=== PATIENT | female | born 1980 | race Hispanic/Latino ===

== ENCOUNTER 2018-08-29 05:37 | Observation (INO) | payer OTHER ==
[2018-08-29 07:46] LABS: Absolute Lymphocytes (CBC) 2.1 K/uL (0.7-4.9); Absolute Monocytes 0.7 K/uL (0.1-1.3); Basophils % 0.2 % (0-1.3); Eosinophils % 0.6 % (0-4.4); Hematocrit 31.4 % (36.0-45.0); Lymphocytes % 17.8 % (15.3-44.8); MPV 7.4 fL (7.6-11.3); Monocytes % 5.7 % (3.3-12.3); RBC Red Blood Cell Count 3.49 M/uL (3.86-4.86)
[2018-08-29] MEDS ORDERED: TERBUTALINE SULF 1 MG/1ML SQ ONE ×2 (08:47→23:15)
[2018-08-29] MEDS ORDERED: Ringers Lactate 500 ML IV ONE (08:48)
--- NOTE | 2018-08-29 09:08 | RAD REPORT ---
EXAM DESCRIPTION: US - OB Complete - 08/29/2018 8:56 am CLINICAL HISTORY: Late third trimester gestation, vaginal bleeding COMPARISON: July 21, 2018 FINDINGS: Transabdominal and limited endovaginal sonography performed. A single cephalic presenting gestation is identified. The 4 chamber heart view has a normal appearanc e. Heart rate normal. The intracranial contents and spine are grossly normal. A left-sided sto mach bubble is seen with normal appearing bladder and kidneys. The 3 vessel cord, insertion site and anterior abdominal wall have normal appearance. No abnormalities are identifiable. measurements are as follows: BPD:8.30 Centimeters 33 weeks 3 days HC:29.82 Centimeters 33 weeks 0 days AC:29.53 Centimeters 33 weeks 4 days HL:5.92 Centimeters 34 weeks 2 days FL:6.63 Centimeters 34 weeks 1 day The estimated gestational age (EGA) is 33 weeks 5 days with an GALO of 10/12/2018. ratios are n ormal or within acceptable limits. The placenta is grade I, posterior in location. No abruption or ma rginal hematoma seen. On limited endovaginal sonography, the inferior margin of the placenta appears to be approximately 2 cm from a closed internal os. Cervical canal assessment was limited. The amniotic fluid volume is normal. ANGIE is normal at 16.58 cm. Maternal adnexa obscured. IMPRESSION: 1. Single, cephalic gestation with an EGA of 33 weeks 5 days and an GALO of the 9. Due date has lengthened since the July examination; however, late third trimester measurement s are the least accurate. 2. No abnormalities are identifiable. ratios are normal or within acceptable limits. 3. Grade I, posterior placenta with no rupture nor marginal hematoma seen. Inferior margin of the escobar centa appears to have migrated superiorly and no longer covers the closed internal os. Cervical asses sment was somewhat limited. If a vaginal delivery is contemplated, a repeat limited dedicated endovag inal cervical canal assessment could be performed. 4. Amniotic fluid volume is normal.
[2018-08-29] MEDS ORDERED: MEPERIDINE HCL 25 MG/0.5 ML IV ONE ×3 (09:25→23:15)
[2018-08-29 09:30] LABS: Urine Appearance CLOUDY; Urine Bilirubin NEGATIVE (NEG); Urine Blood TRACE (NEG); Urine Color YELLOW; Urine Glucose NEGATIVE (NEG); Urine Protein NEGATIVE (NEG); Urine Specific Gravity 1.015 (1.005-1.030); Urine Urobilinogen 0.2 mg/dL (0.2-1.0); Urine pH 6.5 (5.0-7.0)
[2018-08-29] MEDS ORDERED: MEPERIDINE HCL 25 MG/0.5 ML ONE (09:30)
--- NOTE | 2018-08-29 09:37 | P.PN ---
Date of Service: 08/29/18 Patient is a 38 y/o at 36 weeks and 1 day gestation who presents to labor and delivery with vaginal bleeding and pelvic pain/contractions. She states that around 4AM this morning she began to have vaginal bleeding. She states it was bright red. She states last intercourse was one week ago. She has not had any other changes. She has been obtaining care with Dr. Iniguez. Records reviewed. Patient has a h/o 2 prior sections. She has consented to a bilateral tubal ligation. She states she is not sure if she has had any problems with her placenta during the . She reports good movements. VS: ULTRASOUND REPORT: Name: [place] PENALOZA Acct Number: [id number] : 1980 Age: 38 Sex: F Unit Number: [id number] Ord Phys: Kranthi Wagner DO [facility]: Status: REG REF L&D Exam Date: 08/29/18 Report Status: Signed EXAM DESCRIPTION: US - OB Complete - 08/29/2018 8:56 am CLINICAL HISTORY: Late third trimester gestation, vaginal bleeding COMPARISON: July 21, 2018 FINDINGS: Transabdominal and limited endovaginal sonography performed. A single cephalic presenting gestation is identified. The 4 chamber heart view has a normal appearance. Heart rate normal. The intracranial contents and spine are grossly normal. A left-sided stomach bubble is seen with normal appearing bladder and kidneys. The 3 vessel cord, insertion site and anterior abdominal wall have normal appearance. No abnormalities are identifiable. measurements are as follows: BPD:8.30 Centimeters 33 weeks 3 days HC:29.82 Centimeters 33 weeks 0 days AC:29.53 Centimeters 33 weeks 4 days HL:5.92 Centimeters 34 weeks 2 days FL:6.63 Centimeters 34 weeks 1 day The estimated gestational age (EGA) is 33 weeks 5 days with an GALO of 2018. ratios are normal or within acceptable limits. The placenta is grade I, posterior in location. No abruption or marginal hematoma seen. On limited endovaginal sonography, the inferior margin of the placenta appears to be approximately 2 cm from a closed internal os. Cervical canal assessment was limited. The amniotic fluid volume is normal. ANGIE is normal at 16.58 cm. Maternal adnexa obscured. IMPRESSION: 1. Single, cephalic gestation with an EGA of 33 weeks 5 days and an GALO of the 10/12/2018. Due date has lengthened since the July examination; however, late third trimester measurements are the least accurate. 2. No abnormalities are identifiable. ratios are normal or within acceptable limits. 3. Grade I, posterior placenta with no rupture nor marginal hematoma seen. Inferior margin of the placenta appears to have migrated superiorly and no longer covers the closed internal os. Cervical assessment was somewhat limited. If a vaginal delivery is contemplated, a repeat limited dedicated endovaginal cervical canal assessment could be performed. 4. Amniotic fluid volume is normal.
[2018-08-29 09:42] LABS: Urine Bacteria >50 /HPF (<20); Urine Culture Reflex Order REFLEXED
[2018-08-29] MEDS ORDERED: CEFTRIAXONE 2,000 MG in NA CHLORIDE 0.9% 100 ML IV ONE (10:10)
[2018-08-29] MEDS ORDERED: CEFTRIAXONE/SWI 2gm 2 GM/20 ML SYR IV ONE (11:00)
--- NOTE | 2018-08-29 14:09 | P.OBGYNHP ---
Certification for Inpatient Patient admitted to: Observation With expected LOS: <2 Midnights Patient will require the following post-hospital care: None Practitioner: I am a practitioner with admitting privileges, knowledge of patient current condition, hospital course, and medical plan of care. Services: Services provided to patient in accordance with Admission requirements found in Title 42 Section 412.3 of the Code of Federal Regulations Patient History Date of Service: 08/29/18 Reason for admission: Threatened labor/Vaginal bleeding History of Present Illness: Patient is a 38 y/o at 36 weeks and 1 day gestation who presents to labor and delivery with vaginal bleeding and pelvic pain/contractions. She states that around 4AM this morning she began to have vaginal bleeding. She states it was bright red. She states it was heavy at first but has become more dark brown. She states last intercourse was one week ago. She has not had any other changes. She has been obtaining care with Dr. Iniguez. Records reviewed. Patient has a h/o 2 prior sections. She has consented to a bilateral tubal ligation. She states she is not sure if she has had any problems with her placenta during the . She reports good movements. She had a hemoglobin done in her OB's office on 06/10/18 which was 10.8. Allergies No Known Drug Allergies Allergy (Verified 12/17/16 09:44) Unknown Home Medications: Pnv38/Iron Cbn&Gluc/FA/Dss/Dha [Citranatal Assure Combo Pack] 1 each PO DAILY Esomeprazole Mag Trihydrate [Nexium] 40 mg PO DAILY 12/18/16 - Past Medical/Surgical History Diabetic: No -: kidney stones 10/2012 -: previous c/s 01/2013 & 12/2016 - Family History Father -: Other (see notes) Notes: Hepatitis C - Social History Smoking Status: Never smoker Alcohol use: No CD- Drugs: No Caffeine use: No Review of Systems 10-point ROS is otherwise unremarkable Physical Examination - Vital Signs Temperature: 97.6 F Blood Pressure: 113/82 Pulse: 78 Respirations: 18 - General General: Alert, Oriented x3, Moderate distress HEENT: Atraumatic Respiratory: Normal air movement Cardiovascular: No edema, Normal pulses Gastrointestinal: Other (gravid abdomen) Neurological: Normal gait, Normal speech - Female Pelvic External genitalia: Normal, No lesions, No masses Vagina: Normal, [place], Moist, Other (brown to red colored bleeding noted in the vaginal ) Cervix: Dilation (closed), Effacement (long), station (-3) Uterus: Gravid Adnexa: Unable to evaluate - Obstetrics heart rate tracing: Category 2 (good accelerations, moderate variablity) Contractions: Frequency (every 4-6 minutes) Amniotic membrane: Intact Laboratory Data (last 24 hrs) 08/29/18 07:36: WBC 11.9 H, Hgb 10.8 L, Hct 31.4 L, Plt Count 349 Imagings Data: ULTRASOUND REPORT: Name: JOYCE PENALOZA Acct Number: [id number] : 1980 Age: 38 Sex: F Unit Number: [id number] Ord Phys: Kranthi Wagner DO [facility] Dr: Status: REG REF L&D Exam Date: 08/29/18 Report Status: Signed EXAM DESCRIPTION: US - OB Complete - 08/29/2018 8:56 am CLINICAL HISTORY: Late third trimester gestation, vaginal bleeding COMPARISON: July 21, 2018 FINDINGS: Transabdominal and limited endovaginal sonography performed. A single cephalic presenting gestation is identified. The 4 chamber heart view has a normal appearance. Heart rate normal. The intracranial contents and spine are grossly normal. A left-sided stomach bubble is seen with normal appearing bladder and kidneys. The 3 vessel cord, insertion site and anterior abdominal wall have normal appearance. No abnormalities are identifiable. measurements are as follows: BPD:8.30 Centimeters 33 weeks 3 days HC:29.82 Centimeters 33 weeks 0 days AC:29.53 Centimeters 33 weeks 4 days HL:5.92 Centimeters 34 weeks 2 days FL:6.63 Centimeters 34 weeks 1 day The estimated gestational age (EGA) is 33 weeks 5 days with an GALO of 2018. ratios are normal or within acceptable limits. The placenta is grade I, posterior in location. No abruption or marginal hematoma seen. On limited endovaginal sonography, the inferior margin of the placenta appears to be approximately 2 cm from a closed internal os. Cervical canal assessment was limited. The amniotic fluid volume is normal. ANGIE is normal at 16.58 cm. Maternal adnexa obscured. IMPRESSION: 1. Single, cephalic gestation with an EGA of 33 weeks 5 days and an GALO of the 10/12/2018. Due date has lengthened since the July examination; however, late third trimester measurements are the least accurate. 2. No abnormalities are identifiable. ratios are normal or within acceptable limits. 3. Grade I, posterior placenta with no rupture nor marginal hematoma seen. Inferior margin of the placenta appears to have migrated superiorly and no longer covers the closed internal os. Cervical assessment was somewhat limited. If a vaginal delivery is contemplated, a repeat limited dedicated endovaginal cervical canal assessment could be performed. 4. Amniotic fluid volume is normal. Assessment and Plan - Plan Joyce is a 38 y/o at 36 weeks and 1 day gestation who presents to labor and delivery with vaginal bleeding and threatened labor. Patient with be kept for observation for r/o placental abruption. She has a h/o 2 prior sections and has been scheduled for a repeat section with tubal ligation at 39 weeks gestation. Patient had an ultrasound performed that did not reveal placenta previa. Low lying placenta was seen. There was no eveidence of placental abruption on the ultrasound. growth reveals 33 weeks size fetus. UA was performed and WBCs were seen therefore 2 grams of rocephin has been given. A repeat ultrasound will be done tomorrow to revaluate for signs of abruption. Patient will be given IV fluids at 50 cc per hour. Her pain will be managed as needed. She will be given a regular diet. She will be kept on continuous monitoring. - Advance Directives Does patient have a Living Will: No Does patient have a Durable POA for Healthcare: No
[2018-08-29] MEDS ORDERED: Ringers Lactate 1,000 ML IV SCH (15:00)
[2018-08-29] MEDS ORDERED: FAMOTIDINE 20 MG/2 ML VIAL IV ONE (16:07)
[2018-08-29 16:19] VITALS: BMI 27.1
[2018-08-29] MEDS ORDERED: ACETAMINOPHEN 500 MG TAB PO PRN (19:19)
[2018-08-29] MEDS ORDERED: ONDANSETRON 4 MG/2 ML VIAL IV PRN (19:45)
[2018-08-29] MEDS ORDERED: hydrOXYzine HCl 25 MG TAB PO ONE (23:15)
[2018-08-30 05:07] VITALS: BP 123/77; TEMP 97.6
[2018-08-30] MEDS ORDERED: CEFTRIAXONE/SWI 2gm 2 GM/20 ML SYR IVP SCH (11:00)
--- NOTE | 2018-08-30 11:16 | RAD REPORT ---
EXAM DESCRIPTION: US - OB Limited - 08/30/2018 8:27 am CLINICAL HISTORY: follow up from US on 08/28 Vaginal bleeding. COMPARISON: OB Complete dated 08/29/2018 FINDINGS: A limited study was requested. Please refer to preceding day's full OB ultrasound for grea ter detailed assessment. A single cephalic presenting gestation is identified. Heart rate normal. Placenta is posterior however appears low lying in a marginal placenta previa is a possibility. The amniotic fluid index is 13.9 cm, with largest pocket 4.4 cm. Cervix appears long and closed. IMPRESSION: Posterior low-lying placenta is noted which appears to abut the cervical internal os whi ch suggests a marginal placenta previa is present.
[2018-08-30] MEDS ORDERED: FAMOTIDINE 20 MG/2 ML VIAL IV ONE (15:53)
--- NOTE | 2018-08-30 22:04 | P.DS ---
Admission Date: 08/29/18 Discharge Date: 08/30/18 Disposition: ROUTINE DISCHARGE Discharge Condition: GOOD Reason for Admission: Threatened labor/Vaginal bleeding Brief History of Present Illness: Patient is a 38 y/o at 36 weeks and 1 day gestation who presents to labor and delivery with vaginal bleeding and pelvic pain/contractions. She states that around 4AM this morning she began to have vaginal bleeding. She states it was bright red. She states it was heavy at first but has become more dark brown. She states last intercourse was one week ago. She has not had any other changes. She has been obtaining care with Dr. Iniguez. Records reviewed. Patient has a h/o 2 prior sections. She has consented to a bilateral tubal ligation. She states she is not sure if she has had any problems with her placenta during the . She reports good movements. She had a hemoglobin done in her OB's office on 06/10/18 which was 10.8. Hospital Course: Patient did well during her observation stay. Her pain has been managed. She has not dilated. She has had two ultrasounds done and both have been normal. She is tolerating a regular diet. Urine culture reveal positive gram negative rods. She received 2 doses of 2 grams of Rocephin. She denies dysuria. A prescription for macrobid has been sent to her pharmacy. Sensitivities are pending. Vital Signs/Physical Exam: Temp Pulse Resp BP Pulse Ox 97.6 F 80 18 123/77 08/30/18 04:00 08/30/18 04:00 08/30/18 04:00 08/30/18 04:00 General: Alert, In no apparent distress HEENT: Atraumatic Neck: Supple Respiratory: Normal air movement Cardiovascular: No edema, Normal pulses Musculoskeletal: No clubbing, No swelling Integumentary: No rashes, No breakdown Neurological: Normal gait, Normal speech External genitalia: No edema, No lesions, Other (cervix closed and long) Laboratory Data at Discharge: WBC 11.9 K/uL (4.3-10.9) H 08/29/18 07:36 Hgb 10.8 g/dL (12.0-15.0) L 08/29/18 07:36 Hct 30.1 % (36.0-45.0) L 08/30/18 07:20 Plt Count 349 K/uL (152-406) 08/29/18 07:36 Home Medications: Pnv38/Iron Cbn&Gluc/FA/Dss/Dha [Citranatal Assure Combo Pack] 1 each PO DAILY Esomeprazole Mag Trihydrate [Nexium] 40 mg PO DAILY 12/18/16 Nitrofurantoin Monohyd/M-Cryst [Macrobid 100 mg Capsule] 100 mg PO BID #14 capsule 08/30/18 New Medications: Nitrofurantoin Monohyd/M-Cryst [Macrobid 100 mg Capsule] 100 mg PO BID #14 capsule Diet: Regular Activity: No lifting more than 10 lbs
== END 2018-08-30 11:25 | disposition home or self-care (01) ==
LOC: L&D 05:37 → 2ND-WC 14:09
PROVIDERS: ADMIT Specialist; ATTEND Student in an Organized Health Care Education/Training Program
DX: O46.93 Antepartum hemorrhage, unspecified, third trimester (principal); Z3A.36 36 weeks gestation of pregnancy; O60.03 Preterm labor without delivery, third trimester
CPT/HCPCS: 36415; 76805; 76815; 81001; 85014; 85025; 87077; 87086; 87088; 87186; G0378; J0696; J2175; J2405; J3105

== ENCOUNTER 2018-09-11 05:17 | Inpatient (IN) | payer OTHER ==
[2018-09-10 16:54] LABS: RPR Titer ND
[2018-09-10 16:56] LABS: Absolute Monocytes 0.5 K/uL (0.1-1.3); Basophils % 0.7 % (0-1.3); Eosinophils % 0.2 % (0-4.4); Hematocrit 35.9 % (36.0-45.0); Lymphocytes % 15.7 % (15.3-44.8); MPV 7.4 fL (7.6-11.3); Monocytes % 4.2 % (3.3-12.3)
[2018-09-10 17:04] LABS: Protime INR 0.87
[2018-09-10 17:26] LABS: Platelet Estimate INCR; Urine White Blood Cell Casts OK
[2018-09-10 17:27] LABS: Anisocytosis SLIGHT; Blood Morphology Comment NOT SEEN (NOT SEEN); Polychromasia SLIGHT
[2018-09-10 23:24] LABS: RPR (Rapid Plasma Reagin) NON-REACT (NON-REACT)
[2018-09-11] MEDS ORDERED: Ringers Lactate 1,000 ML IV PRN (05:21)
[2018-09-11] MEDS ORDERED: NA CIT/CITRIC AC 30 ML ORAL UDC PO ONE (05:25)
[2018-09-11 05:47] VITALS: BMI 27.6
[2018-09-11] MEDS ORDERED: METOCLOPRAMIDE 10 MG/2mL INJ IV SCH (06:00)
[2018-09-11] MEDS ORDERED: Ringers Lactate 1,000 ML IV SCH (06:00)
[2018-09-11] MEDS ORDERED: CEFAZOLIN 1GM (PREMIX IV) 1 GM/50 ML BAG ONE (06:33)
[2018-09-11] MEDS ORDERED: EPHEDRINE SULF 50 MG/ML VIAL ONE (07:27)
[2018-09-11] MEDS ORDERED: OXYTOCIN 10 UNIT/ML ML IV ONE ×2 (07:27→08:20)
[2018-09-11] MEDS ORDERED: MORPHINE SULFATE/PF 1 MG/ML (10 ML AMP) ONE (07:27)
[2018-09-11] MEDS ORDERED: CEFAZOLIN/SWI 2gm 2 GM/20 ML SYR IVP SCH (07:30)
[2018-09-11] MEDS ORDERED: CARBOPROST TROME 250 MCG/ML IM ONE (07:53)
[2018-09-11] MEDS ORDERED: METHYLERGONOVINE 0.2MG/ML AMP IM ONE (07:53)
[2018-09-11] MEDS ORDERED: INFLUENZA VACCINE (for 3y+) 0.5 ML DOSE IMVAC ONE (08:00)
[2018-09-11] MEDS ORDERED: MIDAZOLAM HCL 2 MG/2 ML INJ ONE (08:01)
[2018-09-11] MEDS ORDERED: CEFAZOLIN/SWI 1gm 1 GM/10 ML SYR IV SCH (08:37)
[2018-09-11] MEDS ORDERED: KETOROLAC 30 MG/ML INJ IM PRN (08:37)
[2018-09-11] MEDS ORDERED: KETOROLAC 30 MG/ML INJ IV PRN (08:37)
[2018-09-11] MEDS ORDERED: Oxycodone HCl/Acetaminophen 1 TAB TAB PO PRN (08:37)
[2018-09-11] MEDS ORDERED: ACETAMINOPHEN 500 MG TAB PO PRN ×2 (08:37)
[2018-09-11] MEDS ORDERED: DIPHENHYDRAMINE 25 MG TAB/CAP PO PRN (08:37)
[2018-09-11] MEDS ORDERED: BISACODYL 10 MG RECTAL SUPP RECT PRN (08:37)
[2018-09-11] MEDS ORDERED: ONDANSETRON 4 MG (ODT) TAB PO PRN (08:37)
[2018-09-11] MEDS ORDERED: OXYTOCIN/LR 20 UNIT/1,000 ML BAG IV SCH (09:00)
[2018-09-11] MEDS ORDERED: FAMOTIDINE 20 MG/2 ML VIAL IV SCH (09:00)
[2018-09-11] MEDS: ONDANSETRON 4 MG/2 ML VIAL IV PRN (10:52)
[2018-09-11] MEDS ORDERED: Ringers Lactate 1,000 ML IV ONE (11:25)
[2018-09-11] MEDS ORDERED: D5LR 1,000 ML with OXYTOCIN 20 UNIT IV SCH ×2 (17:00)
--- NOTE | 2018-09-11 19:08 | OP ---
Surgeon: Rufino Iniguez MD Anesthesiologist: Dr. Nettles and . Indications: This is a 38-year-old, 6, para 3, 2 previous C-sections, for repeat se ction, tubal ligation. Full preoperative counseling concerning procedure and possible complications, including infection, blood loss, anesthetic complications, injury to bladder, bowel, ureter, postope rative complications, clots in legs and pneumonia. The patient knows fully well that does not consti tute all the possible problems that could occur during or following surgery. Tubal ligation. Failur e rates, tubal ectopic , difficulty in tubal reversal, and permanence of procedure, also dis cussed. Anesthesia: Spinal block anesthesia. [employer] Exped[employer] Surgeon: Dr. Wagner. Procedure In Detail: After spinal block and prepping and draping was performed, time-out was perform ed. At this point, Pfannenstiel incision was created along the previous incision site. The incision was carried to the fascia. The fascia was incised and incision carried transversely bilaterally. P eritoneal defect was seen in the midline as the rectus muscles were on their own. Anterior and posterior fascial planes were developed. Then the peritoneal defect was enlarged. Bladder flap was developed as there were significant adhesions to the lower uterine segment. Low transverse uter ine incision created. A 5-pound 11-ounce male infant was delivered. Apgars 9 and 9. Cord blood spe cimen was obtained. Placenta was removed manually. Uterus cleared of clot and blood and exteriorize d. Cervical os was dilated with ring clamp. Uterus closed with a running lock stitch of 1 chromic, followed by several [id number] stitches along the suture line for complete hemostasis. At this time, bilateral tubal ligation was performed, both tubes being kinked in the midportion, triply tied with 2-0 plain, segment of tube removed. The tubal lumen, which were exposed were fulgurated. There was a cyst on the left ovary, serous in nature. This was drained, probably 4 cm prior to drainage. Clear fluid. Gutters clear of clot and blood. Uterus was replaced in the peritoneal cavity. A sma ll bleeding seen in the left angle, 2 further stitches of 1 Vicryl placed at that point, then no furt her bleeding. Estimated blood loss during procedure 750 cc. The rectus muscles were reapproximated using 1 Vicryl. The fascia was closed from either angle to the midline using 1 Vicryl. Subcutaneous tissue was closed with 2-0 plain. Absorbable kay placed and then metal kay. The patient graf d been given 2 g of Ancef for prophylaxis. Tolerated all procedures well. She was transferred back to her room in good condition. Final Diagnoses: Intrauterine gestation, 38 weeks, suspicion of chronic abruption. High risk consul t with Dr. Sonny Laureano, who advised delivery at 38 weeks. Repeat section. Spinal block ane sthesia. Tubal ligation. [facility] Voice ID: [id number] Report ID: [id number]
[2018-09-12] MEDS: ONDANSETRON 4 MG/2 ML VIAL IV PRN (03:03)
[2018-09-12] MEDS: Oxycodone HCl/Acetaminophen 1 TAB TAB PO PRN ×3 (03:04→20:00)
[2018-09-12] MEDS: IBUPROFEN 200 MG TAB PO PRN ×2 (08:29→16:48)
[2018-09-12] MEDS: MAGNESIUM HYDROXIDE 8% 30 ML PO PRN ×2 (08:29→21:50)
--- NOTE | 2018-09-12 16:15 | P.PN ---
Date of Service: 09/12/18 The patient is postop day 1 from a repeat section. She is doing well. She is tolerating diet. Her pain is well controlled. She is afebrile. She has no complaints today she is bonding well with the baby and is breast-feeding. Vital sign stable Selected Entries 09/12/18 09/12/18 09/12/18 04:00 08:00 08:29 Temperature 98 F 96.1 F L Pulse Rate 66 88 Respiratory 18 18 Rate Blood Pressure 127/75 124/93 H Pain Level 2 4 Laboratory Tests 08/29/18 09/10/18 09/11/18 07:36 16:40 16:03 WBC 11.9 H Hgb 10.8 L Hct 31.4 L 35.9 L D 30.5 L D Plt Count 349 General: Resting in bed no distress Head and neck: Normocephalic atraumatic, supple Respiratory: Symmetric nonlabored breathing Abdomen: Soft, mildly distended, mildly tender. Incision clean dry and intact. Stacey in place. Bilateral lower extremities: No clubbing cyanosis or edema. Assessment and plan patient is postop day 1 after repeat section she is doing well. Pain is well controlled. Discontinue IV discontinue Dhillon catheter. Encourage patient to ambulate. Possible discharge home tomorrow.
[2018-09-13] MEDS: IBUPROFEN 200 MG TAB PO PRN (03:43)
[2018-09-13] MEDS: Oxycodone HCl/Acetaminophen 1 TAB TAB PO PRN (07:18)
[2018-09-13] MEDS: MAGNESIUM HYDROXIDE 8% 30 ML PO PRN (07:18)
[2018-09-13 07:35] VITALS: BP 131/69; TEMP 98
[2018-09-13] MEDS ORDERED: INFLUENZA VACCINE (for 3y+) 0.5 ML DOSE IMVAC ONE (08:43)
[2018-09-13] MEDS ORDERED: Tdap (Diph,Pertuss(Acell),Tet Vac) 0.5 ML SYR IMVAC ONE (09:00)
--- NOTE | 2018-09-13 22:10 | P.DS ---
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 Hospital Course: Following delivery of the via section patient has been doing very well. She is tolerating a regular diet. She is ambulating well. She is voiding without difficulty. She is passing flatus but has not yet had a bowel movement. Her pain is well managed. She states she already had a pain prescription given to her by Dr. Iniguez therefore I disposed of the T3 prescription I wrote for her. Vital Signs/Physical Exam: Temp Pulse Resp BP Pulse Ox 98.0 F 86 20 131/69 09/13/18 07:21 09/13/18 07:21 09/13/18 07:21 09/13/18 07:21 General: Alert, In no apparent distress HEENT: Atraumatic Neck: Supple Respiratory: Normal air movement Cardiovascular: No edema, Normal pulses Gastrointestinal: Soft and benign, Other (incision clean, dry and intact; kay in place), Tenderness (mild) Integumentary: No rashes, No breakdown Neurological: Normal gait, Normal speech Laboratory Data at Discharge: WBC 12.6 K/uL (4.3-10.9) H 09/10/18 16:40 Hgb 12.4 g/dL (12.0-15.0) 09/10/18 16:40 Hct 30.5 % (36.0-45.0) L D 09/11/18 16:03 Plt Count 519 K/uL (152-406) H D 09/10/18 16:40 PT 10.3 SECONDS (9.5-12.5) 09/10/18 16:40 INR 0.87 09/10/18 16:40 APTT 26.5 SECONDS (24.3-36.9) 09/10/18 16:40 Home Medications: Pnv38/Iron Cbn&Gluc/FA/Dss/Dha [Citranatal Assure Combo Pack] 1 each PO DAILY Esomeprazole Mag Trihydrate [Nexium] 40 mg PO DAILY 12/18/16 Codeine/APAP [Tylenol W/Codeine #3 tab] 1 tab PO Q6HP PRN #24 tab 09/13/18 New Medications: Codeine/APAP [Tylenol W/Codeine #3 tab] 1 tab PO Q6HP PRN #24 tab PRN Reason: Pain Diet: Regular Activity: No lifting more than 10 lbs Followup: Robert Iniguez MD [ACTIVE - CAN ADMIT] - 1 Week (Return to Dr. Iniguez in 1 week for staple removal then again in 6 weeks for PP check up)
[2018-09-14 03:42] LABS: HBsAG Nonreactive (Nonreactive)
== END 2018-09-13 11:15 | disposition home or self-care (01) | DRG 785 ==
LOC: 2ND-WC 05:17
PROVIDERS: ADMIT Specialist; ATTEND Specialist
PROC: 0U910ZZ Drainage of Left Ovary, Open Approach (ICD-10-PCS; 2018-09-11)
PROC: 10D00Z1 Extraction of Products of Conception, Low, Open Approach (ICD-10-PCS; principal; 2018-09-11 07:30)
PROC: 0U570ZZ Destruction of Bilateral Fallopian Tubes, Open Approach (ICD-10-PCS; 2018-09-11 07:30)
DX: O34.211 Maternal care for low transverse scar from previous cesarean delivery (principal); O34.83 Maternal care for other abnormalities of pelvic organs, third trimester; N83.202 Unspecified ovarian cyst, left side; Z3A.38 38 weeks gestation of pregnancy; Z37.0 Single live birth
CPT/HCPCS: 36415; 85014; 85025; 85610; 85730; 86592; 86850; 86900; 86901; 87340; 88302; 88305; 88307; 90715; J0690; J2210; J2250; J2405; J2590; J2765; Q2035

== ENCOUNTER 2019-07-22 11:27 | Emergency (ER) | payer OTHER, SELFPAY ==
[2019-07-22] MEDS ORDERED: NA CHLORIDE 0.9% 1,000 ML ONE ×3 (11:43→18:07)
[2019-07-22] MEDS ORDERED: PROMETHAZINE 25 MG/ML VIAL ONE ×2 (11:43→12:24)
[2019-07-22] MEDS ORDERED: ACETAMINOPHEN 500 MG TAB ONE (11:43)
[2019-07-22 12:07] LABS: Absolute Lymphocytes (CBC) 0.9 K/uL (0.7-4.9); Basophils % 0.1 % (0-1.3); Hematocrit 41.3 % (36.0-45.0); Lymphocytes % 3.9 % (15.3-44.8); RBC Red Blood Cell Count 4.81 M/uL (3.86-4.86)
[2019-07-22] MEDS ORDERED: METRONIDAZOLE 500mg IVPB 500 MG/100 ML BAG IV ONE (12:08)
[2019-07-22] MEDS ORDERED: CEFEPIME 1 GM/100 ML BAG IV ONE (12:17)
[2019-07-22 12:29] LABS: Albumin 4.5 g/dL (3.4-5.0); Bilirubin Direct 0.1 mg/dL (0-0.2); Bilirubin Total 0.7 mg/dL (0.2-1.0); Potassium 3.1 mmol/L (3.5-5.1); Protein, Total 9.4 g/dL (6.4-8.2)
[2019-07-22 12:53] LABS: Urine Blood 2+ (NEG); Urine Glucose NEGATIVE (NEG); Urine Protein 3+ (NEG); Urine Specific Gravity 1.025 (1.005-1.030)
[2019-07-22 13:06] LABS: Platelet Estimate ADEQ; Urine White Blood Cell Casts OK
[2019-07-22 13:07] LABS: Anisocytosis 1+; Blood Morphology Comment NOTED (NOT SEEN)
[2019-07-22 13:33] LABS: Urine Bacteria LOADED /HPF (<20); Urine Culture Reflex Order REFLEXED; Urine Mucus 1+ /HPF (NONE SEEN)
--- NOTE | 2019-07-22 13:33 | RAD REPORT ---
EXAM DESCRIPTION: CT - Abdomen Pelvis Wo Contrast - 07/22/2019 1:07 pm CLINICAL HISTORY: ABD PAIN COMPARISON: CT ABD PELVIS W CONTRAST dated 12/24/2013 . TECHNIQUE: Axial [address] imaging of the abdomen and pelvis was performed without IV contrast. No IV contrast was given because of allergy, abnormal renal function, patient refusal or physician re quest. No oral contrast. All CT scans are performed using dose optimization technique as appropriate and may include automated exposure control or mA/KV adjustment according to patient size. FINDINGS: No suspicious findings in the lung bases. The liver, spleen and pancreas show no suspicious findings on non-contrast imaging. Gallbladder and b iliary tree are also without suspicious finding. Bilateral nonobstructing renal calyx calculi seen. No hydronephrosis is present. No right-sided urete ral calculus seen. Distal left ureteral calculi cannot be entirely excluded. There are 2 calcific den sities in the region of the distal left ureter and left UVJ there were not present on the prior study . There is motion degradation on this study which limits assessment of these calcifications. Correlat ion is needed with any left flank symptoms. No significant adrenal finding. Isodense renal masses and pyelonephritis cannot be excluded in the absence of IV contrast. Urinary bladder is mostly contracte d. No uterine abnormality seen. Small cysts are identified in the ovaries. No suspicious ovarian finding seen. No dilated bowel loops or bowel wall thickening. Retrocecal appendix is normal. No free air, free flu id or inflammatory stranding. No hernia, mass or bulky lymphadenopathy. No suspicious bony findings. IMPRESSION: No free air, bowel obstruction, appendicitis or other surgically emergent finding. Bilateral renal calculi without hydronephrosis. Two calcific densities are present lower left pelvis in the region of the UVJ and distal left ureter. Provided history did not indicate left renal colic pain. The amount of movement artifact in the pelv is limits further characterization of these calcifications which are new from 2014 comparison. Full assessment is limited is the absence of IV contrast.
[2019-07-22] MEDS ORDERED: LORazepam 2 MG/ML VIAL ONE (13:50)
[2019-07-22] MEDS ORDERED: MORPHINE 4 MG/ML SYR ONE ×2 (13:51→18:07)
[2019-07-22] MEDS ORDERED: KCL 20 MEQ/100 mL IVPB 20 MEQ/100 ML BAG IV ONE (14:08)
--- NOTE | 2019-07-22 15:29 | ER ---
Nurse's Notes [facility] Name: Joyce Duran Age: 39 yrs Sex: Female : 1980 Arrival Date: 07/22/2019 Time: 11:29 Bed 5 Private MD: Diagnosis: Hydronephrosis with renal and ureteral calculous obstruction;Severe sepsis without septic shock;Acute kidney failure Presentation: 07/22 11:32 Presenting complaint: Patient states: N/V and sever epigastric pain radiating around to jl7 left side x 2 days. Transition of care: patient was not received from another setting of care. Onset of symptoms was July 20, 2019. Risk Assessment: Do you want to hurt yourself or someone else? Patient reports no desire to harm self or others. Care prior to arrival: None. 11:32 Method Of Arrival: Ambulatory jl7 11:32 Acuity: PALLAVI 3 jl7 11:47 Acuity: PALLAVI 2 ph 11:47 Initial Sepsis Screen: Does the patient meet any 2 criteria? RR > 20 per min. Temp jl7 <36.0*C (96.8*F)) or > 38.3*C (100.9*F). HR > 90 bpm. Yes Does the patient have a suspected source of infection? Yes: Acute abdominal pain If YES to both, name of provider notified: Dany DOMINGUEZ Triage Assessment: 11:35 General: Appears distressed, uncomfortable, ill, Behavior is cooperative, appropriate bp for age, anxious. Pain: Complains of pain in abdomen. EENT: No deficits noted. Neuro: No deficits noted. Cardiovascular: Rhythm is sinus tachycardia. Respiratory: No deficits noted. GI: Abdomen is non-distended, Pt is actively vomiting bile. : Reports pain in left flank(s). Derm: No deficits noted. Musculoskeletal: No deficits noted. 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 - Social history:: Smoking status: Patient/guardian denies using tobacco. - Ebola Screening: : No symptoms or risks identified at this time. Screenin:02 Abuse screen: Denies threats or abuse. Denies injuries from another. Nutritional bp screening: No deficits noted. Tuberculosis screening: No symptoms or risk factors identified. Fall Risk None identified. Assessment: 11:35 General: SEE TRIAGE NOTE. bp 11:48 Reassessment: CODE SEPSIS. bp 12:49 Reassessment: VOMITING RESOLVED, PT REMAINS TACHYCARDIC. bp 13:58 Reassessment: PT RETURNED TO CT. bp 15:04 Reassessment: ALL CURRENT ORDERS COMPLETED. VS STABLE. bp 17:00 Reassessment: TRANSFER IN PROCESS, ACCEPTANCE PENDING. bp 18:22 Reassessment: REPORT TO LAMAR GASPAR FOR [facility] 938. bp 18:37 Reassessment: [facility] AT B/S. bp Vital Signs: 11:34 BP 123 / 94; Pulse 114; Resp 20 S; Temp 102.5(O); Pulse Ox 100% on R/A; Weight 58.97 kg jl7 (R); Pain 10/10; 12:49 BP 149 / 97; Pulse 107; Resp 33; Pulse Ox 99% ; bp 13:57 BP 133 / 83; Pulse 106; Resp 33; Pulse Ox 99% ; bp 15:01 BP 104 / 69; Pulse 99; Resp 22; Pulse Ox 97% ; bp 17:00 BP 113 / 73; Pulse 94; Resp 16; Pulse Ox 97% ; bp 18:00 BP 131 / 94; Pulse 100; Resp 16; Temp 99.5; Pulse Ox 97% ; bp ED Course: 11:29 Patient arrived in ED. ag5 11:33 Triage completed. jl7 11:33 Dany Lyon PA is PHCP. jr8 11:33 Josué Hurd MD is Attending Physician. jr8 11:34 Arm band placed on right wrist. jl7 11:38 Isaias Carson, HUBERT is Primary Nurse. bp 11:40 Inserted saline lock: 20 gauge in right antecubital area, using aseptic technique. bp Blood collected. 12:02 Patient has correct armband on for positive identification. Placed in gown. Bed in low bp position. Call light in reach. Side rails up X2. 12:41 EKG done, by founder and chief technical officer. reviewed by Dany DOMINGUEZ. at1 12:47 Straight cath inserted, using sterile technique, 16 Fr. Specimen obtained. Returned bp clear yellow urine. Patient tolerated well. 13:00 Inserted saline lock: 20 gauge in right forearm, using aseptic technique. bp 13:08 Abdomen In Process Unspecified. EDMS 15:02 Urine Culture Sent. bp 15:02 Blood Culture Adult (2) Sent. bp 18:20 Dhillon cath inserted, using sterile technique, 18 Fr., by hi, balloon inflated, to dh3 gravity drainage, Patient tolerated well. 18:42 No provider procedures requiring assistance completed. Patient transferred, IV remains bp in place. Administered Medications: 11:40 Drug: Promethazine 12.5 mg Route: IVP; Site: right antecubital; bp 12:25 Follow up: Response: No adverse reaction bp 11:40 Drug: NS 0.9% 1000 ml Route: IV; Rate: 1000 ml; Site: right antecubital; bp 18:44 Follow up: IV Status: Completed infusion; IV Intake: 1000ml bp 11:40 Drug: NS 0.9% (30 ml/kg) 30 ml/kg Route: IV; Rate: bolus; Site: right antecubital; bp 18:43 Follow up: IV Status: Completed infusion; IV Intake: 1800ml bp 11:45 Drug: Tylenol 1000 mg Route: PO; bp 12:52 Follow up: Response: Temperature is decreased bp 12:10 Drug: Flagyl 500 mg Volume: 100 ml; Route: IVPB; Rate: 200 ml/hr; Infused Over: 30 bp mins; Site: right antecubital; 18:43 Follow up: IV Status: Completed infusion; IV Intake: 100ml bp 12:25 Drug: Phenergan 12.5 mg Route: IVP; Site: right antecubital; bp 12:52 Follow up: Response: Nausea is decreased bp 13:00 Drug: Cefepime 1 grams Route: IVPB; Rate: 200 ml/hr; Infused Over: 30 mins; Site: right bp forearm; 18:43 Follow up: IV Status: Completed infusion; IV Intake: 100ml bp 13:30 Drug: Potassium Chloride 20 mEq Route: IV; Rate: calculated rate; Site: right bp antecubital; 18:42 Follow up: IV Status: Completed infusion; IV Intake: 100ml bp 13:56 Drug: morphine 4 mg Route: IVP; Site: right forearm; bp 13:57 Follow up: Response: Marked relief of symptoms bp 13:56 Drug: Ativan 0.5 mg Route: IVP; Site: right forearm; bp 13:57 Follow up: Response: Marked relief of symptoms bp 18:13 Drug: morphine 4 mg Route: IVP; Site: right forearm; bp 18:26 Follow up: Response: Pain is decreased bp 18:13 Drug: Zosyn 3.375 grams Route: IVPB; Infused Over: 60 mins; Site: right forearm; bp 18:42 Follow up: IV Status: Completed infusion; IV Intake: 100ml bp 18:13 Drug: NS 0.9% 1000 ml Route: IV; Rate: 125 ml/hr; Site: right forearm; bp 18:43 Follow up: IV Status: Infusion continued upon transfer bp Intake: 18:42 IV: 100ml; Total: 100ml. bp 18:42 IV: 100ml; Total: 200ml. bp 18:43 IV: 100ml; Total: 300ml. bp 18:43 IV: 100ml; Total: 400ml. bp 18:43 IV: 1800ml; Total: 2200ml. bp 18:44 IV: 1000ml; Total: 3200ml. bp Outcome: 15:28 ER care complete, transfer ordered by . sean 18:37 Transferred by ground EMS to [facility], Transfer form completed. bp 18:37 Condition: stable 18:37 Instructed on the need for transfer. 18:45 Patient left the ED. bp Addendum: 07/26/2019 17:56 Addendum: Culture Results: Positive urine culture. Phone call Attempt #1 Culture report s s sent to [facility] MITZI Ruiz RN. 07/28/2019 17:25 Addendum: Culture Results: Positive blood culture. called [facility], pt has been i w d/c home , no further action needed. Signatures: Dispatcher [employer] EDKelly Chowdhury RN HUBERT Rebeca Desir RN RN ss Roszak, Josh, PA PA jr8 Catrina Zarco, chiller technician EKG Tat1 Kalpana Abbott RN RN Chris Ureña RN RN jl7 Lucía Patel 3 Isaias Carson, RN RN bp Ad, Ed ag5
--- NOTE | 2019-07-22 15:29 | EDPHYS ---
Physician Documentation [facility] Name: Joyce Duran Age: 39 yrs Sex: Female : 1980 Arrival Date: 07/22/2019 Time: 11:29 Bed 5 Private MD: ED Physician Josué Hurd HPI: 07/22 13:56 This 39 yrs old Female presents to ER via Ambulatory with complaints of jr8 Abdominal Pain, Back Pain, Vomiting. 13:56 The patient presents with abdominal pain in the lower abdomen. Onset: The jr8 symptoms/episode began/occurred acutely, yesterday. The symptoms radiate to left back, the left flank. Associated signs and symptoms: Pertinent positives: nausea and vomiting, fever. The symptoms are described as stabbing. Modifying factors: The symptoms are alleviated by nothing, the symptoms are aggravated by nothing. Severity of pain: At its worst the pain was moderate in the emergency department the pain is unchanged. The patient has not experienced similar symptoms in the past. The patient has not recently seen a physician. 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 - Social history:: Smoking status: Patient/guardian denies using tobacco. - Ebola Screening: : No symptoms or risks identified at this time. ROS: 13:56 Eyes: Negative for injury, pain, redness, and discharge, ENT: Negative for injury, jr8 pain, and discharge, Neck: Negative for injury, pain, and swelling, Cardiovascular: Negative for chest pain, palpitations, and edema, Respiratory: Negative for shortness of breath, cough, wheezing, and pleuritic chest pain, MS/Extremity: Negative for injury and deformity, Skin: Negative for injury, rash, and discoloration, Neuro: Negative for headache, weakness, numbness, tingling, and seizure. 13:56 Constitutional: Positive for fever. 13:56 Abdomen/GI: Positive for abdominal pain, nausea and vomiting, Negative for diarrhea. 13:56 Back: Positive for pain at rest, flank pain, on the left. Exam: 13:56 Eyes: Pupils equal round and reactive to light, extra-ocular motions intact. Lids and jr8 lashes normal. Conjunctiva and sclera are non-icteric and not injected. Cornea within normal limits. Periorbital areas with no swelling, redness, or edema. ENT: Nares patent. No nasal discharge, no septal abnormalities noted. Tympanic membranes are normal and external auditory canals are clear. Oropharynx with no redness, swelling, or masses, exudates, or evidence of obstruction, uvula midline. Mucous membranes moist. Neck: Trachea midline, no thyromegaly or masses palpated, and no cervical lymphadenopathy. Supple, full range of motion without nuchal rigidity, or vertebral point tenderness. No Meningismus. Respiratory: Lungs have equal breath sounds bilaterally, clear to auscultation and percussion. No rales, rhonchi or wheezes noted. No increased work of breathing, no retractions or nasal flaring. Skin: Warm, dry with normal turgor. Normal color with no rashes, no lesions, and no evidence of cellulitis. MS/ Extremity: Pulses equal, no cyanosis. Neurovascular intact. Full, normal range of motion. Neuro: Awake and alert, GCS 15, oriented to person, place, time, and situation. Cranial nerves II-XII grossly intact. Motor strength 5/5 in all extremities. Sensory grossly intact. Cerebellar exam normal. Normal gait. 13:56 Cardiovascular: Rate: tachycardic, Rhythm: regular, Pulses: Pulses are 2+ in right radial artery and left radial artery. Heart sounds: normal, normal S1and S2, Edema: is not appreciated. 13:56 Abdomen/GI: Inspection: abdomen appears normal, Bowel sounds: active, all quadrants, Palpation: soft, in all quadrants, moderate abdominal tenderness, in the anterior aspect of left lateral abdomen, mass, is not appreciated, rebound tenderness, is not appreciated, voluntary guarding, is not appreciated, involuntary guarding, is not appreciated, no appreciated organomegaly, Indicators: McBurney's point is not tender, Cooper's sign is negative, Rovsing's sign is negative, Liver: tenderness, is not appreciated. 13:56 Back: CVA tenderness, that is moderate, is noted on the left. Vital Signs: 11:34 BP 123 / 94; Pulse 114; Resp 20 S; Temp 102.5(O); Pulse Ox 100% on R/A; Weight 58.97 kg jl7 (R); Pain 10/10; 12:49 BP 149 / 97; Pulse 107; Resp 33; Pulse Ox 99% ; bp 13:57 BP 133 / 83; Pulse 106; Resp 33; Pulse Ox 99% ; bp 15:01 BP 104 / 69; Pulse 99; Resp 22; Pulse Ox 97% ; bp 17:00 BP 113 / 73; Pulse 94; Resp 16; Pulse Ox 97% ; bp 18:00 BP 131 / 94; Pulse 100; Resp 16; Temp 99.5; Pulse Ox 97% ; bp MDM: 11:38 Patient medically screened. 8 15:07 ED course: Patient with obstructive uropathy with sepsis. Waiting to see if Dr. Andrew estrada will take case . 15:26 Data reviewed: vital signs, nurses notes, lab test result(s), radiologic studies, CT jr8 scan, and as a result, I will admit patient. Data interpreted: Pulse oximetry: on room air is 97 %. Interpretation: normal. Counseling: I had a detailed discussion with the patient and/or guardian regarding: the historical points, exam findings, and any diagnostic results supporting the discharge/admit diagnosis, lab results, radiology results, the need to transfer to another facility, for higher level of care, [facility] does not immediately have the required specialist. 17:56 ED course: Urology team at [facility] asked that we administer Vancomycin and Zosyn as sean well . 07/22 11:38 Order name: Basic Metabolic Panel; Complete Time: 13:07/22 11:38 Order name: CBC with Diff; Complete Time: 13:17 07/22 11:38 Order name: Creatinine for Radiology; Complete Time: 12:29 07/22 11:38 Order name: Hepatic Function; Complete Time: 13:01 07/22 11:38 Order name: Lipase; Complete Time: 13:01 07/22 11:39 Order name: Urine Microscopic Only; Complete Time: 13:42 07/22 11:47 Order name: Blood Culture Adult (2) 07/22 11:47 Order name: Procalcitonin; Complete Time: 13:01 07/22 11:47 Order name: Lactate; Complete Time: 12:29 jr8 07/22 12:27 Order name: CBC Smear Scan; Complete Time: 13:17 EDNH 07/22 12:50 Order name: Urine Dipstick--Ancillary (enter results); Complete Time: 13:01 em1 07/22 12:50 Order name: Urine --Ancillary (enter results); Complete Time: 13:01 [facility] 07/22 13:43 Order name: Urine Culture EDNH 07/22 12:58 Order name: Abdomen ; Complete Time: 15:07 EDMS 07/22 15:49 Order name: EKG Electrocardiogram EDNH 07/22 11:38 Order name: IV Saline Lock; Complete Time: 12:01 8 07/22 11:38 Order name: Labs collected and sent; Complete Time: 12:01 8 07/22 11:39 Order name: Urine Test (obtain specimen); Complete Time: 12:49 8 07/22 11:39 Order name: Urine Dipstick-Ancillary (obtain specimen); Complete Time: 12:49 [facility] 07/22 12:22 Order name: Straight Cath - Urine; Complete Time: 12:52 8 07/22 17:57 Order name: Dhillon; Complete Time: 18:25 8 Administered Medications: 11:40 Drug: Promethazine 12.5 mg Route: IVP; Site: right antecubital; bp 12:25 Follow up: Response: No adverse reaction bp 11:40 Drug: NS 0.9% 1000 ml Route: IV; Rate: 1000 ml; Site: right antecubital; bp 18:44 Follow up: IV Status: Completed infusion; IV Intake: 1000ml bp 11:40 Drug: NS 0.9% (30 ml/kg) 30 ml/kg Route: IV; Rate: bolus; Site: right antecubital; bp 18:43 Follow up: IV Status: Completed infusion; IV Intake: 1800ml bp 11:45 Drug: Tylenol 1000 mg Route: PO; bp 12:52 Follow up: Response: Temperature is decreased bp 12:10 Drug: Flagyl 500 mg Volume: 100 ml; Route: IVPB; Rate: 200 ml/hr; Infused Over: 30 bp mins; Site: right antecubital; 18:43 Follow up: IV Status: Completed infusion; IV Intake: 100ml bp 12:25 Drug: Phenergan 12.5 mg Route: IVP; Site: right antecubital; bp 12:52 Follow up: Response: Nausea is decreased bp 13:00 Drug: Cefepime 1 grams Route: IVPB; Rate: 200 ml/hr; Infused Over: 30 mins; Site: right bp forearm; 18:43 Follow up: IV Status: Completed infusion; IV Intake: 100ml bp 13:30 Drug: Potassium Chloride 20 mEq Route: IV; Rate: calculated rate; Site: right bp antecubital; 18:42 Follow up: IV Status: Completed infusion; IV Intake: 100ml bp 13:56 Drug: morphine 4 mg Route: IVP; Site: right forearm; bp 13:57 Follow up: Response: Marked relief of symptoms bp 13:56 Drug: Ativan 0.5 mg Route: IVP; Site: right forearm; bp 13:57 Follow up: Response: Marked relief of symptoms bp 18:13 Drug: morphine 4 mg Route: IVP; Site: right forearm; bp 18:26 Follow up: Response: Pain is decreased bp 18:13 Drug: Zosyn 3.375 grams Route: IVPB; Infused Over: 60 mins; Site: right forearm; bp 18:42 Follow up: IV Status: Completed infusion; IV Intake: 100ml bp 18:13 Drug: NS 0.9% 1000 ml Route: IV; Rate: 125 ml/hr; Site: right forearm; bp 18:43 Follow up: IV Status: Infusion continued upon transfer bp Disposition: 19:08 Co-signature as Attending Physician, Josué Hurd MD. rn Disposition: 07/22/19 15:28 Transfer ordered to [facility]. Diagnosis are Hydronephrosis with renal and ureteral calculous obstruction, Severe sepsis without septic shock, Acute kidney failure. - Reason for transfer: Higher level of care. - Accepting physician is [facility]. - Condition is Stable. - Problem is new. - Symptoms have improved. Signatures: Dispatcher [employer] Josué Walker MD MD rn Roszak, Josh, PA PA jr8 Chris Ureña RN RN jl7 Isaias Carson, RN RN bp Corrections: (The following items were deleted from the chart) 12:57 12:22 Abdomen Pelvis W Con+CT.RAD.BRZ ordered. EDNH EDNH 18:45 15:28 07/22/2019 15:28 Transfer ordered to [facility]. Diagnosis is bp Hydronephrosis with renal and ureteral calculous obstruction; Severe sepsis without septic shock; Acute kidney failure. Reason for transfer: Higher level of care. Accepting physician is [facility]. Condition is Stable. Problem is new. Symptoms have improved. jr8
[2019-07-22] MEDS ORDERED: PIPER/TAZO/NS 3.375gm 3.375 GM/100 ML BAG ONE (18:07)
[2019-07-22] MEDS ORDERED: ONDANSETRON 4 MG (ODT) TAB ONE (18:12)
[2019-07-22 19:34] VITALS: O2SAT 97
[2019-07-22 19:37] VITALS: BP 131/94; TEMP 99.5
--- NOTE | 2019-07-22 22:55 | EKG ---
Test Date: 2019-07-22 Test Time: 12:15:28 Bilingual Patient Support Caseworker: MALIK MEASUREMENT RESULTS: Intervals: Rate: 117 FL: 132 QRSD: 100 QT: 332 QTc: 463 [place]: P: 79 FL: 132 QRS: 104 T: 67 INTERPRETIVE STATEMENTS: Sinus tachycardia Rightward axis Borderline ECG No previous ECG available for comparison Electronically Signed On 07-22-19 22:55:10 WOOD SHINGLE ROOFER by Dillon Madrid
== END 2019-07-22 18:45 | disposition short-term general hospital (02) ==
LOC: ER 11:27
DX: N13.2 Hydronephrosis with renal and ureteral calculous obstruction (principal); R65.20 Severe sepsis without septic shock; N17.9 Acute kidney failure, unspecified
CPT/HCPCS: 36415; 51702; 74176; 80048; 80076; 81003; 81015; 81025; 83605; 83690; 84145; 85025; 87040; 87077; 87086; 87088; 87186; 87205; 93005; 96365; 96366; 96367; 96368; 96375; 99285; J0692; J2543; J2550; J7030

== ENCOUNTER 2019-08-28 16:54 | Emergency (ER) | payer OTHER, SELFPAY ==
--- OUTSIDE RECORDS SUMMARY | 2019-08-28 16:57 | XMS REPORT ---
:1980 [facility] [address] [place] [address] Care Team Providers Name Role Phone HAYLEE ENG Unavailable Unavailable JOCELIN MARREROEEN Unavailable Unavailable Problems This patient has no known problems. Allergies, Adverse Reactions, Alerts This patient has no known allergies or adverse reactions. Medications This patient has no known medications. Results Test Description Test Time Test Comments Text Results Atomic Results Result Comments CT, CHEST WITH 2019-08-06 Reason for exam:->BACK FINAL REPORT PATIENT ID: IV CONTRAST- PE 06:01:00 PAINReason for [id number] TECHNIQUE: CT scan TEST DESIGN exam:->SHORTNESS OF of the chest WITH BREATHIs the patient intravenous contrast. Dose ?->NoWhat is modulation, iterative the patient's sedation reconstruction, and/or requirement?->No weight-based adjustment of Sedation the mA/kV was utilized to reduce the radiation dose to as low as reasonably achievable. INDICATION: Positive d-dimer, back pain, and shortness of breath. COMPARISON: None. FINDINGS: LINES/TUBES: None. PULMONARY ARTERIES: Proximal to the bifurcation of the main pulmonary artery, the main pulmonary artery is 2.5 cm in diameter. No filling defects within the pulmonary arteries to suggest pulmonary embolus. LUNGS AND AIRWAYS: The lungs and airways are normal without focal abnormality. PLEURA: The pleural spaces are clear. HEART AND MEDIASTINUM: No significant mediastinal, hilar, or axillary lymphadenopathy. The heart and pericardium are within normal limits. SOFT TISSUES AND BONES: Unremarkable. UPPER ABDOMEN: Bilateral ureter stents are present. Small hiatal hernia. IMPRESSION:No pulmonary embolism or acute cardiopulmonary abnormality. Lungs are clear. Signed: Bebeto Lawson MDReport Verified Date/Time: 08/06/2019 06:01:51 , ABDOMEN 2019-08-06 Reason for exam:->post FINAL REPORT PATIENT ID: 04:08:00 ureteral stentingReason [id number] EXAM: CT of the for exam:->SHORTNESS OF abdomen and pelvis, with BREATHIs the patient contrast CLINICAL HISTORY: ?->NoWhat is Abdominal pain post the patient's sedation ureteral stenting. requirement?->No TECHNIQUE: CT of the Sedation abdomen and pelvis was performed with intravenous contrast administration. This exam was performed according to our departmental dose optimization program which includes automated exposure control, adjustment of the mA and/or kV according to patient's size and/or use of iterative reconstructive technique. COMPARISON: None FINDINGS: LOWER CHEST: Mild bibasilar dependent atelectasis. Mild discoid atelectasis in the right middle lobe.LIVER: Within normal limits.BILE DUCTS: Within normal limits.GALL BLADDER: Within normal limits.PANCREAS: Within normal limits.SPLEEN: Within normal limits.ADRENALS: Within normal limits.KIDNEYS/URETERS: Bilateral double-J nephroureteral stents in place. Punctate nonobstructing bilateral renal stones measuring up to 5 mm in the left kidney. 3 mm nonobstructing stone in the left distal ureter. No hydroureteronephrosis or perinephric stranding. URINARY BLADDER: Within normal limits.REPRODUCTIVE ORGANS: 3 cm left ovarian cyst and 2.8 cm right ovarian cyst, almost certainly benign and requires no additional imaging follow-up. Unremarkable uterus. BOWEL/MESENTERY: No bowel obstruction or abnormal wall thickening. Normal appendix.PERITONEUM/RETROPE RITONEUM: No free air, free fluid or fluid collection. VESSELS: Within normal limits. LYMPH NODES: No abdominal or pelvic lymphadenopathy.SOFT TISSUES: Within normal limits.BONES: Within normal limits. IMPRESSION: Bilateral nephroureteral stents in place.Punctate bilateral nonobstructing renal stones. Punctate nonobstructing left distal ureteral stone.No hydroureteronephrosis or perinephric stranding. Signed: Adina Schaffer MDReport Verified Date/Time: 08/06/2019 04:08:20 D-DIMER 2019-08-06 03:25:00 Test Item Value Reference Range Comments D-DIMER QUANTITATIVE (BEAKER) (test iesj=365) 2.87 MG/L FEU <0.50 Intended Use: The D-Dimer Assay can be used to aid in the diagnosis of Deep Vein Thrombosis (DVT) and Pulmonary Embolism Disease (PED).In patients with low pre-test probability, various studies concerning STA Liatest D-dimer test have reported that with a cutoff value of 0.50 MG/L FEU, the Negative Predictive Value (NPV) regarding the exclusion of thrombosis is within 95-100% range.RAD, CHEST, 1 VIEW, NON [id number] 03:24:00Reason for exam:->BACK PAINReason for exam:->SHORTNESS OF BREATHIs the patient ?->NoShould this be performed at the bedside?->YesFINAL REPORT INDICATION : BACK PAINSHORTNESS OF BREATH COMPARISON: None TECHNIQUE: Single frontal view of the chest. FINDINGS: Lungs and pleura: Clear lungs. No effusion.Heart andmediastinum: Normal heart size. Unremarkable mediastinal contours.Osseous structures: No acute abnormality.Other: None. IMPRESSION: No acute intrathoracic abnormality. Signed: Bebeto Lawson MDReport Verified Date/Time: 03:24:23 Electronically signed by: BEBETO LAWSON MD on 2018 03:24 AMPREGNANCY SCREEN, [id number] 21:20:00 Test Item Value Reference Range Comments TEST URINE (BEAKER) (test wrxb=695) Negative URINALYSIS W/ REFLEX URINE [id number] 21:19:00 Test Item Value Reference Range Comments COLOR (BEAKER) (test wgln=949) Yellow CLARITY (BEAKER) (test bhlr=871) Clear SPECIFIC GRAVITY UA (BEAKER) (test kogs=819) 1.022 1.001-1.035 PH UA (BEAKER) (test ywxf=739) 6.0 5.0-8.0 PROTEIN UA (BEAKER) (test ojxl=525) 30 mg/dL Negative GLUCOSE UA (BEAKER) (test ophg=892) Negative Negative KETONES UA (BEAKER) (test gdvc=681) Negative Negative BILIRUBIN UA (BEAKER) (test ymuc=272) Negative Negative BLOOD UA (BEAKER) (test xvkq=037) Moderate Negative NITRITE UA (BEAKER) (test eple=029) Negative Negative LEUKOCYTE ESTERASE UA (BEAKER) (test toza=723) Large Negative UROBILINOGEN UA (BEAKER) (test tldg=430) 0.2 mg/dL 0.2-1.0 RBC UA (BEAKER) (test htst=360) 85 /HPF WBC UA (BEAKER) (test pxrv=699) 43 /HPF MUCUS (BEAKER) (test drtq=7484) Few SQUAMOUS EPITHELIAL (BEAKER) (test nlqh=205) 2 /HPF SOURCE(BEAKER) (test khek=6782) BASIC METABOLIC [id number] 21:18:00 Test Item Value Reference Range Comments SODIUM (BEAKER) (test 139 meq/L 136-145 wjkz=022) POTASSIUM (BEAKER) (test 4.5 meq/L 3.5-5.1 Specimen slightly hemolyzed qgaw=829) CHLORIDE (BEAKER) (test 108 meq/L 98-107 kbzu=110) CO2 (BEAKER) (test thts=551) 24 meq/L 22-29 BLOOD UREA NITROGEN (BEAKER) 18 mg/dL 7-21 (test yhow=724) CREATININE (BEAKER) (test 0.76 mg/dL 0.57-1.25 Specimen slightly hemolyzed wfbt=436) GLUCOSE RANDOM (BEAKER) 98 mg/dL 70-105 (test iywh=059) CALCIUM (BEAKER) (test 9.4 mg/dL 8.4-10.2 ptjp=924) EGFR (BEAKER) (test INSUFFICIENT CLINICAL DATA TO igva=8852) CALCULATE ESTIMATED GFR. CBC W/PLT COUNT & AUTO [id number] 21:07:00 Test Item Value Reference Range Comments WHITE BLOOD CELL COUNT (BEAKER) (test lzuz=345) 8.3 K/ L 3.5-10.5 RED BLOOD CELL COUNT (BEAKER) (test gbne=430) 4.30 M/ L 3.93-5.22 HEMOGLOBIN (BEAKER) (test ykmh=276) 12.4 GM/DL 11.2-15.7 HEMATOCRIT (BEAKER) (test bfdw=946) 39.1 % 34.1-44.9 MEAN CORPUSCULAR VOLUME (BEAKER) (test mvhh=480) 90.9 fL 79.4-94.8 MEAN CORPUSCULAR HEMOGLOBIN (BEAKER) (test 28.8 pg 25.6-32.2 lmuv=114) MEAN CORPUSCULAR HEMOGLOBIN CONC (BEAKER) (test 31.7 GM/DL 32.2-35.5 olae=472) RED CELL DISTRIBUTION WIDTH (BEAKER) (test 13.2 % 11.7-14.4 wljq=649) PLATELET COUNT (BEAKER) (test ludx=127) 666 K/CU MM 150-450 MEAN PLATELET VOLUME (BEAKER) (test bfvt=836) 8.8 fL 9.4-12.3 NUCLEATED RED BLOOD CELLS (BEAKER) (test 0 /100 WBC 0-0 idbe=336) NEUTROPHILS RELATIVE PERCENT (BEAKER) (test 69 % dxoz=657) LYMPHOCYTES RELATIVE PERCENT (BEAKER) (test 22 % ffph=039) MONOCYTES RELATIVE PERCENT (BEAKER) (test 7 % wajx=776) EOSINOPHILS RELATIVE PERCENT (BEAKER) (test 2 % zvez=166) BASOPHILS RELATIVE PERCENT (BEAKER) (test 0 % auot=109) NEUTROPHILS ABSOLUTE COUNT (BEAKER) (test 5.71 K/ L 1.56-6.13 rdiu=932) LYMPHOCYTES ABSOLUTE COUNT (BEAKER) (test 1.78 K/ L 1.18-3.74 ocyy=056) MONOCYTES ABSOLUTE COUNT (BEAKER) (test 0.54 K/ L 0.24-0.36 wsva=532) EOSINOPHILS ABSOLUTE COUNT (BEAKER) (test 0.17 K/ L 0.04-0.36 mwcq=349) BASOPHILS ABSOLUTE COUNT (BEAKER) (test 0.03 K/ L 0.01-0.08 zkpf=593) IMMATURE GRANULOCYTES-RELATIVE PERCENT (BEAKER) 0 % 0-1 (test scyg=1764) BLOOD [id number] 00:00:00 Test Item Value Reference Range Comments CULTURE (BEAKER) (test ptjq=7457) No growth in 5 days BLOOD [id number] 00:00:00 Test Item Value Reference Range Comments CULTURE (BEAKER) (test wmbl=2178) No growth in 5 days SCREEN, [id number] 07:02:00 Test Item Value Reference Range Comments TEST URINE (BEAKER) (test xufv=741) Negative BASIC METABOLIC [id number] 03:43:00 Test Item Value Reference Range Comments SODIUM (BEAKER) (test 137 meq/L 136-145 ohgi=577) POTASSIUM (BEAKER) (test 3.3 meq/L 3.5-5.1 mrzc=983) CHLORIDE (BEAKER) (test 107 meq/L 98-107 kaly=305) CO2 (BEAKER) (test mjji=909) 22 meq/L 22-29 BLOOD UREA NITROGEN (BEAKER) 14 mg/dL 7-21 (test nzbi=460) CREATININE (BEAKER) (test 0.62 mg/dL 0.57-1.25 bldl=277) GLUCOSE RANDOM (BEAKER) 83 mg/dL 70-105 (test kbkt=810) CALCIUM (BEAKER) (test 8.1 mg/dL 8.4-10.2 nrmj=311) EGFR (BEAKER) (test INSUFFICIENT CLINICAL DATA TO ttjq=0421) CALCULATE ESTIMATED GFR. CBC W/PLT COUNT & AUTO [id number] 02:58:00 Test Item Value Reference Range Comments WHITE BLOOD CELL COUNT (BEAKER) (test fsqu=077) 5.0 K/ L 3.5-10.5 RED BLOOD CELL COUNT (BEAKER) (test zfob=605) 3.67 M/ L 3.93-5.22 HEMOGLOBIN (BEAKER) (test mcnm=521) 10.6 GM/DL 11.2-15.7 HEMATOCRIT (BEAKER) (test mynk=530) 32.2 % 34.1-44.9 MEAN CORPUSCULAR VOLUME (BEAKER) (test rttm=161) 87.7 fL 79.4-94.8 MEAN CORPUSCULAR HEMOGLOBIN (BEAKER) (test 28.9 pg 25.6-32.2 vsot=873) MEAN CORPUSCULAR HEMOGLOBIN CONC (BEAKER) (test 32.9 GM/DL 32.2-35.5 ljpc=396) RED CELL DISTRIBUTION WIDTH (BEAKER) (test 12.9 % 11.7-14.4 oaho=873) PLATELET COUNT (BEAKER) (test lsir=613) 280 K/CU MM 150-450 MEAN PLATELET VOLUME (BEAKER) (test vxkx=953) 9.2 fL 9.4-12.3 NUCLEATED RED BLOOD CELLS (BEAKER) (test 0 /100 WBC 0-0 tkgl=436) NEUTROPHILS RELATIVE PERCENT (BEAKER) (test 57 % kqkp=008) LYMPHOCYTES RELATIVE PERCENT (BEAKER) (test 29 % reib=507) MONOCYTES RELATIVE PERCENT (BEAKER) (test 12 % xxno=682) EOSINOPHILS RELATIVE PERCENT (BEAKER) (test 1 % rzfq=049) BASOPHILS RELATIVE PERCENT (BEAKER) (test 0 % tyju=203) NEUTROPHILS ABSOLUTE COUNT (BEAKER) (test 2.82 K/ L 1.56-6.13 fufc=202) LYMPHOCYTES ABSOLUTE COUNT (BEAKER) (test 1.43 K/ L 1.18-3.74 ciak=757) MONOCYTES ABSOLUTE COUNT (BEAKER) (test 0.60 K/ L 0.24-0.36 srjh=313) EOSINOPHILS ABSOLUTE COUNT (BEAKER) (test 0.07 K/ L 0.04-0.36 rohz=853) BASOPHILS ABSOLUTE COUNT (BEAKER) (test 0.01 K/ L 0.01-0.08 cgxy=938) IMMATURE GRANULOCYTES-RELATIVE PERCENT (BEAKER) 1 % 0-1 (test lwyh=1619) BASIC METABOLIC [id number] 06:50:00 Test Item Value Reference Range Comments SODIUM (BEAKER) (test 132 meq/L 136-145 dpvr=929) POTASSIUM (BEAKER) (test 3.2 meq/L 3.5-5.1 xfad=848) CHLORIDE (BEAKER) (test 105 meq/L 98-107 mboc=980) CO2 (BEAKER) (test krmw=249) 20 meq/L 22-29 BLOOD UREA NITROGEN (BEAKER) 11 mg/dL 7-21 (test yaeo=003) CREATININE (BEAKER) (test 0.65 mg/dL 0.57-1.25 vazx=185) GLUCOSE RANDOM (BEAKER) 83 mg/dL 70-105 (test wpol=152) CALCIUM (BEAKER) (test 8.0 mg/dL 8.4-10.2 vmau=550) EGFR (BEAKER) (test INSUFFICIENT CLINICAL DATA TO tkpo=9264) CALCULATE ESTIMATED GFR. CBC W/PLT COUNT & AUTO [id number] 04:00:00 Test Item Value Reference Range Comments WHITE BLOOD CELL COUNT (BEAKER) (test qweo=989) 11.5 K/ L 3.5-10.5 RED BLOOD CELL COUNT (BEAKER) (test lrxf=956) 3.79 M/ L 3.93-5.22 HEMOGLOBIN (BEAKER) (test bkbb=533) 11.1 GM/DL 11.2-15.7 HEMATOCRIT (BEAKER) (test rbdj=951) 33.3 % 34.1-44.9 MEAN CORPUSCULAR VOLUME (BEAKER) (test sqdw=066) 87.9 fL 79.4-94.8 MEAN CORPUSCULAR HEMOGLOBIN (BEAKER) (test 29.3 pg 25.6-32.2 vann=813) MEAN CORPUSCULAR HEMOGLOBIN CONC (BEAKER) (test 33.3 GM/DL 32.2-35.5 llhb=785) RED CELL DISTRIBUTION WIDTH (BEAKER) (test 12.8 % 11.7-14.4 spys=180) PLATELET COUNT (BEAKER) (test oqsw=820) 263 K/CU MM 150-450 MEAN PLATELET VOLUME (BEAKER) (test tazv=481) 9.2 fL 9.4-12.3 NUCLEATED RED BLOOD CELLS (BEAKER) (test 0 /100 WBC 0-0 nxav=568) NEUTROPHILS RELATIVE PERCENT (BEAKER) (test 83 % knig=840) LYMPHOCYTES RELATIVE PERCENT (BEAKER) (test 7 % iihd=302) MONOCYTES RELATIVE PERCENT (BEAKER) (test 9 % lrnw=385) EOSINOPHILS RELATIVE PERCENT (BEAKER) (test 0 % lhwl=848) BASOPHILS RELATIVE PERCENT (BEAKER) (test 0 % pdna=271) NEUTROPHILS ABSOLUTE COUNT (BEAKER) (test 9.57 K/ L 1.56-6.13 ypae=897) LYMPHOCYTES ABSOLUTE COUNT (BEAKER) (test 0.84 K/ L 1.18-3.74 xkgb=085) MONOCYTES ABSOLUTE COUNT (BEAKER) (test 1.01 K/ L 0.24-0.36 szir=970) EOSINOPHILS ABSOLUTE COUNT (BEAKER) (test 0.01 K/ L 0.04-0.36 vbsv=141) BASOPHILS ABSOLUTE COUNT (BEAKER) (test 0.01 K/ L 0.01-0.08 xtqe=037) IMMATURE GRANULOCYTES-RELATIVE PERCENT (BEAKER) 1 % 0-1 (test woad=5608) U/S, RENAL, [id number] 02:21:00Reason for exam:->akiFINAL REPORT Renal ultrasound dated 07/23/2019 CLINICAL HISTORY: RANJANA, bilateral stent placement COMPARISON: None Comment: Real-time transabdominal renal ultrasound was performed. Right kidney measures 12.5 x 4.7 x 4.9 cm. Left kidney measures 11.3 x 6.6 x 5.3 cm. Right renal cortex measures 1.1 cm. Left renal cortex measures 1.7 cm. Renal parenchymal echogenicity: Normal There is no hydronephrosis. A nonobstructing stone is present in the mid to upper portion of the right renal collecting system, measuring 4 mm. A left- sided nonobstructing stone in the midportion measures 5 mm. No cyst is identified on either kidney. Doppler ultrasound demonstrates a patent main renal artery and vein bilaterally. The distal portions of bilateral ureteral stents are noted in the partially decompressed urinary bladder. Impression: Bilateral nonobstructing kidney stones. No hydronephrosis. Partially visualized ureteral stents in the urinary bladder. Signed: Donnell BeltranortVerified Date/Time: 07/24/2019 02:21:25 RAD, ABDOMEN/KUB, 1 VIEW [id number] 01:26:00Reason for exam:->stent positioningShould this be performed at the bedside?-> YesFINAL REPORT CLINICAL HISTORY: Stent positioning COMPARISON: None. FINDINGS:2 supine views of the abdomen are submitted. Bilateral ureteral stents appear appropriately positioned. The abdominal bowel gas pattern is normal. There is no evidence of organomegaly or ascites. Thereis no acute bony abnormality. The lung bases are clear. Signed: Donnell Beltranort Verified Date/Time: 07/24/2019 01:26:46 CBC W/PLT COUNT & AUTO [id number] 06:40:00 Test Item Value Reference Range Comments WHITE BLOOD CELL COUNT (BEAKER) (test jemf=546) 16.8 K/ L 3.5-10.5 RED BLOOD CELL COUNT (BEAKER) (test vyhz=580) 4.04 M/ L 3.93-5.22 HEMOGLOBIN (BEAKER) (test ibxn=543) 11.9 GM/DL 11.2-15.7 HEMATOCRIT (BEAKER) (test ivru=820) 36.1 % 34.1-44.9 MEAN CORPUSCULAR VOLUME (BEAKER) (test fxwg=085) 89.4 fL 79.4-94.8 MEAN CORPUSCULAR HEMOGLOBIN (BEAKER) (test 29.5 pg 25.6-32.2 tczw=749) MEAN CORPUSCULAR HEMOGLOBIN CONC (BEAKER) (test 33.0 GM/DL 32.2-35.5 ivyx=553) RED CELL DISTRIBUTION WIDTH (BEAKER) (test 12.8 % 11.7-14.4 ozbv=547) PLATELET COUNT (BEAKER) (test hpsn=457) 258 K/CU MM 150-450 MEAN PLATELET VOLUME (BEAKER) (test yloy=038) 9.4 fL 9.4-12.3 NUCLEATED RED BLOOD CELLS (BEAKER) (test 0 /100 WBC 0-0 lwpl=334) NEUTROPHILS RELATIVE PERCENT (BEAKER) (test 93 % mbgk=753) LYMPHOCYTES RELATIVE PERCENT (BEAKER) (test 2 % ytfl=945) MONOCYTES RELATIVE PERCENT (BEAKER) (test 4 % msdm=440) EOSINOPHILS RELATIVE PERCENT (BEAKER) (test 0 % sryy=969) BASOPHILS RELATIVE PERCENT (BEAKER) (test 0 % nglm=262) NEUTROPHILS ABSOLUTE COUNT (BEAKER) (test 15.68 K/ L 1.56-6.13 nfno=078) LYMPHOCYTES ABSOLUTE COUNT (BEAKER) (test 0.39 K/ L 1.18-3.74 buvd=218) MONOCYTES ABSOLUTE COUNT (BEAKER) (test 0.65 K/ L 0.24-0.36 xcqj=307) EOSINOPHILS ABSOLUTE COUNT (BEAKER) (test 0.00 K/ L 0.04-0.36 sjcd=640) BASOPHILS ABSOLUTE COUNT (BEAKER) (test 0.01 K/ L 0.01-0.08 gmsd=839) IMMATURE GRANULOCYTES-RELATIVE PERCENT (BEAKER) 1 % 0-1 (test sakg=2821) BASIC METABOLIC [id number] 06:32:00 Test Item Value Reference Range Comments SODIUM (BEAKER) (test 135 meq/L 136-145 hcdb=551) POTASSIUM (BEAKER) (test 3.9 meq/L 3.5-5.1 fdtc=111) CHLORIDE (BEAKER) (test 109 meq/L 98-107 chzj=045) CO2 (BEAKER) (test ulex=264) 19 meq/L 22-29 BLOOD UREA NITROGEN (BEAKER) 19 mg/dL 7-21 (test uezc=796) CREATININE (BEAKER) (test 0.78 mg/dL 0.57-1.25 ecba=649) GLUCOSE RANDOM (BEAKER) 123 mg/dL 70-105 (test xwdh=688) CALCIUM (BEAKER) (test 8.1 mg/dL 8.4-10.2 xrjb=733) EGFR (BEAKER) (test INSUFFICIENT CLINICAL DATA TO qxfl=1612) CALCULATE ESTIMATED GFR. FL, FLUORO, NON-SPECIFIC, UP TO 1 [id number] 02:47:00Reason for exam:-> left ureteral stent placementFINAL REPORT Examination: Retrograde pyelography 75 fluoroscopic spot views were obtained during the procedure by the ordering service. Images are nondiagnostic as no radiologist was present at the time of imaging. Fluoroscopic time was not provided. Please see the procedurereport for details. Signed: Donnell Beltran MDReport Verified Date/Time: 07/23/2019 02:47:24 LACTIC ACID, [id number] 02:22:00 Test Item Value Reference Range Comments LACTATE BLOOD VENOUS (2) (BEAKER) (test 1.0 mmol/L 0.5-2.2 sqaa=3602) LACTIC ACID, [id number] 23:42:00 Test Item Value Reference Range Comments LACTATE BLOOD VENOUS (2) (BEAKER) (test 0.5 mmol/L 0.5-2.2 dljp=8544) [id number] 22:29:00 Test Item Value Reference Range Comments PROCALCITONIN (BEAKER) (test lpjh=5130) 0.11 ng/mL <0.05 SEPSIS RISK (ng/mL)Low: 0.05-0.50Intermediate: 0.51-2.00High: & gt;=2.01TROPONIN [id number] 22:25:00 Test Item Value Reference Range Comments TROPONIN I (BEAKER) (test flre=732) 0.01 ng/mL 0.00-0.03 Troponin I (TnI) levels must be interpreted in the context of the presenting symptoms and the clinical findings. Elevated TnI levels indicate myocardial damage, but are not specific for ischemic heart disease. Elevated TnI levels are seen in patients with other cardiac conditions (including myocarditis and congestive heart failure), and slight TnI elevations occur in patients with other conditions, including sepsis, renal failure, acidosis, acute neurological disease, and persistent tachyarrhythmia.BASIC METABOLIC [id number] 22:23:00 Test Item Value Reference Range Comments SODIUM (BEAKER) (test 134 meq/L 136-145 axzh=500) POTASSIUM (BEAKER) (test 3.7 meq/L 3.5-5.1 Specimen slightly hemolyzed mlbc=865) CHLORIDE (BEAKER) (test 105 meq/L 98-107 zdte=971) CO2 (BEAKER) (test ttzh=773) 19 meq/L 22-29 BLOOD UREA NITROGEN (BEAKER) 21 mg/dL 7-21 (test rfqn=641) CREATININE (BEAKER) (test 0.81 mg/dL 0.57-1.25 Specimen slightly hemolyzed rrsw=224) GLUCOSE RANDOM (BEAKER) 105 mg/dL 70-105 (test dxza=745) CALCIUM (BEAKER) (test 8.4 mg/dL 8.4-10.2 zemb=425) EGFR (BEAKER) (test INSUFFICIENT CLINICAL DATA TO szoi=7124) CALCULATE ESTIMATED GFR. [id number] 22:19:00 Test Item Value Reference Range Comments MAGNESIUM (BEAKER) (test 1.9 mg/dL 1.6-2.6 Specimen slightly hemolyzed qdjh=082) URIC [id number] 22:19:00 Test Item Value Reference Range Comments URIC ACID (BEAKER) (test 5.0 mg/dL 2.6-7.2 Specimen slightly hemolyzed hqbk=902) HEPATIC FUNCTION [id number] 22:19:00 Test Item Value Reference Range Comments TOTAL PROTEIN (BEAKER) (test 7.4 gm/dL 6.0-8.3 Specimen slightly hemolyzed dxfo=041) ALBUMIN (BEAKER) (test 4.0 g/dL 3.5-5.0 Specimen slightly hemolyzed rqgt=3686) BILIRUBIN TOTAL (BEAKER) (test 0.5 mg/dL 0.2-1.2 Specimen slightly hemolyzed nsjr=584) BILIRUBIN DIRECT (BEAKER) (test 0.2 mg/dL 0.1-0.5 Specimen slightly hemolyzed dkjb=765) ALKALINE PHOSPHATASE (BEAKER) 60 U/L 40-150 (test dvlh=234) AST (SGOT) (BEAKER) (test 16 U/L 5-34 Specimen slightly hemolyzed pjyx=622) ALT (SGPT) (BEAKER) (test 9 U/L 6-55 Specimen slightly hemolyzed uhuk=910) [id number] 22:19:00 Test Item Value Reference Range Comments LIPASE (BEAKER) (test wzxz=584) 5 U/L 8-78 LACTIC ACID, [id number] 22:15:00 Test Item Value Reference Range Comments LACTATE BLOOD VENOUS (2) (BEAKER) (test 0.8 mmol/L 0.5-2.2 ubdt=1673) CBC W/PLT COUNT & AUTO [id number] 22:05:00 Test Item Value Reference Range Comments WHITE BLOOD CELL COUNT (BEAKER) (test jsgf=294) 19.6 K/ L 3.5-10.5 RED BLOOD CELL COUNT (BEAKER) (test dgrv=575) 4.30 M/ L 3.93-5.22 HEMOGLOBIN (BEAKER) (test xlbk=399) 13.0 GM/DL 11.2-15.7 HEMATOCRIT (BEAKER) (test hzgc=664) 37.9 % 34.1-44.9 MEAN CORPUSCULAR VOLUME (BEAKER) (test orxv=569) 88.1 fL 79.4-94.8 MEAN CORPUSCULAR HEMOGLOBIN (BEAKER) (test 30.2 pg 25.6-32.2 pqlr=288) MEAN CORPUSCULAR HEMOGLOBIN CONC (BEAKER) (test 34.3 GM/DL 32.2-35.5 cjcg=802) RED CELL DISTRIBUTION WIDTH (BEAKER) (test 12.8 % 11.7-14.4 ddhl=093) PLATELET COUNT (BEAKER) (test hwgv=704) 351 K/CU MM 150-450 MEAN PLATELET VOLUME (BEAKER) (test zvvx=298) 9.7 fL 9.4-12.3 NUCLEATED RED BLOOD CELLS (BEAKER) (test 0 /100 WBC 0-0 dqrv=177) NEUTROPHILS RELATIVE PERCENT (BEAKER) (test 89 % xuqi=016) LYMPHOCYTES RELATIVE PERCENT (BEAKER) (test 4 % drgm=389) MONOCYTES RELATIVE PERCENT (BEAKER) (test 7 % lvpw=186) EOSINOPHILS RELATIVE PERCENT (BEAKER) (test 0 % cyoc=148) BASOPHILS RELATIVE PERCENT (BEAKER) (test 0 % euaf=267) NEUTROPHILS ABSOLUTE COUNT (BEAKER) (test 17.38 K/ L 1.56-6.13 usoz=371) LYMPHOCYTES ABSOLUTE COUNT (BEAKER) (test 0.69 K/ L 1.18-3.74 frvz=503) MONOCYTES ABSOLUTE COUNT (BEAKER) (test 1.38 K/ L 0.24-0.36 wpar=374) EOSINOPHILS ABSOLUTE COUNT (BEAKER) (test 0.00 K/ L 0.04-0.36 rwvr=302) BASOPHILS ABSOLUTE COUNT (BEAKER) (test 0.02 K/ L 0.01-0.08 ythc=764) IMMATURE GRANULOCYTES-RELATIVE PERCENT (BEAKER) 1 % 0-1 (test tdsg=3920) CREATININE, RANDOM [id number] 22:01:00 Test Item Value Reference Range Comments CREATININE URINE (BEAKER) (test eahv=647) 99.2 mg/dL Reference Range: No NormalsSODIUM, RANDOM [id number] 22:01:00 Test Item Value Reference Range Comments SODIUM URINE (BEAKER) (test xsxl=482) 85 meq/L Reference Range: No NormalsURINALYSIS WITH MICROSCOPIC IF [id number] 21 :59:00 Test Item Value Reference Range Comments COLOR (BEAKER) (test twcj=551) Yellow CLARITY (BEAKER) (test kveq=405) Clear SPECIFIC GRAVITY UA (BEAKER) (test thqh=074) 1.022 1.001-1.035 PH UA (BEAKER) (test ygwj=233) 6.5 5.0-8.0 PROTEIN UA (BEAKER) (test criv=693) 50 mg/dL Negative GLUCOSE UA (BEAKER) (test jerx=511) Negative Negative KETONES UA (BEAKER) (test ximx=428) 60 mg/dL Negative BILIRUBIN UA (BEAKER) (test iigy=254) Negative Negative BLOOD UA (BEAKER) (test rjij=145) Small Negative NITRITE UA (BEAKER) (test gnpa=394) Negative Negative LEUKOCYTE ESTERASE UA (BEAKER) (test cztq=240) Moderate Negative UROBILINOGEN UA (BEAKER) (test jgaw=438) 0.2 mg/dL 0.2-1.0 SOURCE(BEAKER) (test wlmy=5381) URINALYSIS [id number] 21:59:00 Test Item Value Reference Range Comments RBC UA (BEAKER) (test cclp=152) 7 /HPF WBC UA (BEAKER) (test dpyg=553) 13 /HPF SQUAMOUS EPITHELIAL (BEAKER) (test fqay=434) 1 /HPF YEAST (BEAKER) (test fwsu=9536) Rare SCREEN, [id number] 21:56:00 Test Item Value Reference Range Comments TEST URINE (BEAKER) (test fpck=110) Negative
[2019-08-28] MEDS ORDERED: NA CHLORIDE 0.9% 1,000 ML ONE (17:36)
[2019-08-28] MEDS ORDERED: MEPERIDINE HCL 25 MG/0.5 ML ONE (17:36)
[2019-08-28 17:43] LABS: Absolute Lymphocytes (CBC) 1.8 K/uL (0.7-4.9); Basophils % 0.9 % (0-1.3); Hematocrit 37.8 % (36.0-45.0); MPV 7.2 fL (7.6-11.3); RBC Red Blood Cell Count 4.34 M/uL (3.86-4.86)
[2019-08-28 18:01] LABS: Urine Bacteria >50 /HPF (<20); Urine Culture Reflex Order REFLEXED
[2019-08-28 18:10] LABS: ALT/SGPT 17 U/L (12-78); AST/SGOT 9 U/L (15-37); Albumin 4.1 g/dL (3.4-5.0); Alkaline Phosphatase 64 U/L (45-117); BUN Blood Urea Nitrogen 19 mg/dL (7-18); Bicarbonate 27 mmol/L (21-32); Bilirubin Direct < 0.1 mg/dL (0-0.2); Bilirubin Total 0.4 mg/dL (0.2-1.0); Glucose Level 91 mg/dL (74-106); Lipase 95 U/L (73-393); Potassium 3.8 mmol/L (3.5-5.1); Protein, Total 7.6 g/dL (6.4-8.2); Sodium Level 140 mmol/L (136-145)
[2019-08-28] MEDS ORDERED: CEFTRIAXONE/SWI 1gm 1 GM/10 ML SYR ONE (18:55)
--- NOTE | 2019-08-28 19:09 | RAD REPORT ---
EXAM DESCRIPTION: CT - Stone Protocol - 08/28/2019 6:35 pm CLINICAL HISTORY: Abdominal pain, flank pain, history of kidney stones on the right, history of sten t placement July 22 COMPARISON: CT study July 22, 2019 TECHNIQUE: Axial 5 mm thick images were obtained without oral or IV contrast. The [id number] span s the entirety of the system partially obscuring uppermost abdomen and lung bases. All CT scans are performed using dose optimization technique as appropriate and may include automated exposure control or mA/KV adjustment according to patient size. FINDINGS: Bilateral double pigtail stents are in place in each collecting system. Stents appear well -positioned. No bladder stone or stone fragment identified. No stone fragments seen along the course of the right-sided stent. Punctate calyx calculi remain on the right. A 4 millimeter stone is seen ad jacent to the distal left ureteral stent approximately 3 cm from the UVJ. No other stones along the c ourse of the stent. A 7 centimeter nonobstructing calculus present in the lower pole of the left kidn ey. Stranding or edema seen along the ureteral course of the stents No suspicious renal masses. Isode nse masses and pyelonephritis are not excluded on a stone protocol CT scan. No significant adrenal fi nding. Imaged portions of the liver, spleen and pancreas show no suspicious findings on non-contrast imaging . No gallbladder or biliary tree abnormality identified. No suspicious bowel findings. Appendix is normal. Uterus and ovaries show no suspicious findings. No hernia, mass or bulky lymphadenopathy noted. No free air, free fluid or inflammatory stranding. No significant bony abnormality. IMPRESSION: Bilateral pigtail stents are in place in good position. Patient has bilateral nonobstruc ting calyx calculi. Mild edema or soft tissue stranding present along the ureteral course of each stent. A 4 millimeter stone is adjacent to the distal left ureter approximately 3 cm from the UVJ. No bladde r stone or stone fragments. Isodense masses and pyelonephritis are not excluded on stone protocol technique.
--- NOTE | 2019-08-28 19:16 | ER ---
Nurse's Notes [facility] Name: Joyce Duran Age: 39 yrs Sex: Female : 1980 Arrival Date: 08/28/2019 Time: 16:56 Bed 4 Private MD: Diagnosis: Urinary tract infection, site not specified Presentation: 08/28 17:05 Presenting complaint: Patient states: kidney stents placed 07/22/19 pain got better but sv the last couple of weeks has been having progressively increasing right flank pain that radiates to the RLQ and RLE pain. Transition of care: patient was not received from another setting of care. Onset of symptoms was July 2019. Care prior to arrival: None. 17:05 Method Of Arrival: Wheelchair sv 17:05 Acuity: PALLAVI 2 sv 17:12 Initial Sepsis Screen: Does the patient meet any 2 criteria? HR > 90 bpm. No. Patient's ss initial sepsis screen is negative. Does the patient have a suspected source of infection? Yes: Acute abdominal pain. 18:21 Risk Assessment: Do you want to hurt yourself or someone else? Patient reports no tw2 desire to harm self or others. Historical: - Allergies: 17:07 No Known Drug Allergies; sv - PMHx: 17:07 Kidney stones; sv - PSHx: 17:07 ; Kidney stents; sv - Immunization history:: Adult Immunizations up to date. - Social history:: Smoking status: . - Ebola Screening: : Patient denies travel to an Ebola-affected area in the 21 days before illness onset. - Family history:: not pertinent. - Hospitalizations: : No recent hospitalization is reported. Screenin:27 Abuse screen: Denies threats or abuse. Nutritional screening: No deficits noted. tw2 Tuberculosis screening: No symptoms or risk factors identified. Fall Risk None identified. Assessment: 17:25 General: Appears in no apparent distress. uncomfortable, Behavior is calm, cooperative, aj1 appropriate for age. Pain: Complains of pain in posterior aspect of right lateral abdomen and anterior aspect of right lateral abdomen Pain radiates to pelvis. Neuro: Level of Consciousness is awake, alert, obeys commands, Oriented to person, place, time, situation. Cardiovascular: Patient's skin is warm and dry. Respiratory: Airway is patent Respiratory effort is even, unlabored, Respiratory pattern is regular, symmetrical. GI: No signs and/or symptoms were reported involving the gastrointestinal system. Abdomen is non-distended, Bowel sounds present X 4 quads. Abd is soft and non tender X 4 quads. Reports nausea, vomiting, Patient currently denies diarrhea. : Reports urinary frequency, rita blood in urine. EENT: No signs and/or symptoms were reported regarding the EENT system. Derm: No signs and/or symptoms reported regarding the dermatologic system. Skin is pink, warm \T\ dry. normal. Musculoskeletal: No signs and/or symptoms reported regarding the musculoskeletal system. Circulation, motion, and sensation intact. 18:21 Reassessment: Patient appears in no apparent distress at this time. No changes from tw2 previously documented assessment. Patient and/or family updated on plan of care and expected duration. Pain level reassessed. Patient is alert, oriented x 3, equal unlabored respirations, skin warm/dry/pink. 19:10 Reassessment: Patient appears in no apparent distress at this time. Patient and/or jb4 family updated on plan of care and expected duration. Pain level reassessed. Patient is alert, oriented x 3, equal unlabored respirations, skin warm/dry/pink. 19:56 Reassessment: Patient appears in no apparent distress at this time. Patient and/or jb4 family updated on plan of care and expected duration. Pain level reassessed. Patient is alert, oriented x 3, equal unlabored respirations, skin warm/dry/pink. PT assisted to lobby to wait for ride home. Verbalized understanding of d/c and follow up instrucitions. Vital Signs: 17:08 BP 114 / 88; Pulse 114; Resp 20; Pulse Ox 97% ; Weight 63.5 kg; Height 5 ft. 2 in. sv (157.48 cm); 17:12 Temp 98.5(O); ss 17:45 BP 136 / 95; Pulse 81; Resp 18; Pulse Ox 97% on R/A; aj1 18:20 BP 128 / 84; Pulse 76; Resp 17; Pulse Ox 98% on R/A; tw2 19:30 BP 155 / 105; Pulse 75; Resp 16; Pulse Ox 100% on R/A; jb4 17:08 Body Mass Index 25.61 (63.50 kg, 157.48 cm) ED Course: 16:56 Patient arrived in ED. as 17:07 Triage completed. sv 17:07 Arm band placed on. sv 17:08 Josué Hurd MD is Attending Physician. rn 17:20 Marleni Zarate RN is Primary Nurse. aj1 17:25 Patient has correct armband on for positive identification. Bed in low position. Call aj1 light in reach. 17:25 No provider procedures requiring assistance completed. aj1 17:30 Inserted saline lock: 20 gauge in right antecubital area, using aseptic technique. aj1 Blood collected. 17:30 Urine collected: clean catch specimen, rita blood. aj1 18:34 CT completed. Patient tolerated procedure well. Patient moved back from CT. mw3 18:35 CT Stone Protocol In Process Unspecified. EDMS 18:58 Abrahan Winters NP is PHCP. pm1 19:57 IV discontinued, intact, bleeding controlled, No redness/swelling at site. Pressure jb4 dressing applied. Administered Medications: 17:42 Drug: Demerol 25 mg Route: IVP; Site: right antecubital; aj1 18:59 Follow up: Response: No adverse reaction; Pain is decreased; RASS: Alert and Calm (0) aj1 17:42 Drug: NS 0.9% 1000 ml Route: IV; Rate: 1000 ml; Site: right antecubital; aj1 20:03 Follow up: Response: No adverse reaction; IV Status: Order to discontinue infusion; IV jb4 Intake: 300ml 18:59 Drug: Rocephin - (cefTRIAXone) 1 grams Route: IVPB; Infused Over: 30 mins; Site: right aj1 antecubital; Intake: 20:03 IV: 300ml; Total: 300ml. jb4 Outcome: 19:15 Discharge ordered by . rn 19:57 Discharged to home ambulatory, via wheelchair. jb4 19:57 Condition: stable 19:57 Discharge instructions given to patient, Instructed on discharge instructions, follow up and referral plans. medication usage, Demonstrated understanding of instructions, follow-up care, medications, Prescriptions given X 2. 20:03 Patient left the ED. jb4 Signatures: Dispatcher [employer] EDNM Marleni Zarate RN RN aj1 Kim Woodard RN RN sv Martinez, Amelia as Josué Hurd MD MD rn Smirch, Shelby, RN RN ss Marinas, Patrick, HELPDESK ANALYST HELPDESK ANALYST pm1 Pilar Guadalupe RN RN tw2 Alvarez Tellez RN RN jb4 Cynthia Sanchez mw3 Corrections: (The following items were deleted from the chart) 19:57 19:30 IV discontinued, intact, bleeding controlled, No redness/swelling at site. jb4 Pressure dressing applied, jb4
--- NOTE | 2019-08-28 19:16 | EDPHYS ---
Physician Documentation [facility] Name: Joyce Duran Age: 39 yrs Sex: Female : 1980 Arrival Date: 08/28/2019 Time: 16:56 Bed 4 Private MD: ED Physician Josué Hurd HPI: 08/28 18:48 This 39 yrs old Female presents to ER via Wheelchair with complaints of Flank rn Pain, Pelvic Pain. 18:48 The patient complains of pain in the left mid back and right mid back. The pain rn radiates to the abdomen. Onset: The symptoms/episode began/occurred 5 week(s) ago. Modifying factors: The symptoms are alleviated by nothing. the symptoms are aggravated by nothing. Severity of pain: At its worst the pain was moderate in the emergency department the pain is unchanged. The patient has experienced similar episodes in the past. Reports pain since beginning of July when had UTI and kidney stones, got stents placed, has had pain since then. Pain in back and radiates to bilateral lower abd. No fever. No vomiting or diarrhea.. Historical: - Allergies: 17:07 No Known Drug Allergies; sv - PMHx: 17:07 Kidney stones; sv - PSHx: 17:07 ; Kidney stents; sv - Immunization history:: Adult Immunizations up to date. - Social history:: Smoking status: . - Ebola Screening: : Patient denies travel to an Ebola-affected area in the 21 days before illness onset. - Family history:: not pertinent. - Hospitalizations: : No recent hospitalization is reported. ROS: 18:48 Constitutional: Negative for fever, chills, and weight loss, Eyes: Negative for injury, rn pain, redness, and discharge, Cardiovascular: Negative for chest pain, palpitations, and edema, Respiratory: Negative for shortness of breath, cough, wheezing, and pleuritic chest pain, Abdomen/GI: + lower abd pain Back: + bilateral flank pain : Negative for injury, bleeding, discharge, and swelling, MS/Extremity: Negative for injury and deformity, Skin: Negative for injury, rash, and discoloration, Neuro: Negative for headache, weakness, numbness, tingling, and seizure. Exam: 18:48 Constitutional: This is a well developed, well nourished patient who is awake, alert, rn appears uncomfortable Head/Face: Normocephalic, atraumatic. ENT: MMM Cardiovascular: Regular rate and rhythm. No pulse deficits. Respiratory: No increased work of breathing, no retractions or nasal flaring. Abdomen/GI: soft, mild bilateral lower quadrant tenderness Back: No spinal tenderness. No costovertebral tenderness. Full range of motion. MS/ Extremity: Pulses equal, no cyanosis. Neurovascular intact. Full, normal range of motion. Equal circumference. Neuro: Awake and alert, GCS 15, oriented to person, place, time, and situation. Cranial nerves II-XII grossly intact. Motor strength 5/5 in all extremities. Sensory grossly intact. Cerebellar exam normal. Normal gait. Vital Signs: 17:08 BP 114 / 88; Pulse 114; Resp 20; Pulse Ox 97% ; Weight 63.5 kg; Height 5 ft. 2 in. sv (157.48 cm); 17:12 Temp 98.5(O); ss 17:45 BP 136 / 95; Pulse 81; Resp 18; Pulse Ox 97% on R/A; aj1 18:20 BP 128 / 84; Pulse 76; Resp 17; Pulse Ox 98% on R/A; tw2 19:30 BP 155 / 105; Pulse 75; Resp 16; Pulse Ox 100% on R/A; jb4 17:08 Body Mass Index 25.61 (63.50 kg, 157.48 cm) sv MDM: 17:08 Patient medically screened. rn 19:12 Differential diagnosis: nephrolithiasis, UTI. Data reviewed: vital signs, nurses notes, government services professional test result(s), radiologic studies, CT scan, and as a result, I will discharge patient. Counseling: I had a detailed discussion with the patient and/or guardian regarding: the historical points, exam findings, and any diagnostic results supporting the discharge/admit diagnosis, lab results, radiology results, the need for outpatient follow up, to return to the emergency department if symptoms worsen or persist or if there are any questions or concerns that arise at home. Response to treatment: the patient's symptoms have markedly improved after treatment, and as a result, I will discharge patient. Special discussion: I discussed with the patient/guardian in detail that at this point there is no indication for admission to the hospital. It is understood, however, that if the symptoms persist or worsen the patient needs to return immediately for re-evaluation. Based on the history and exam findings, there is no indication for further emergent testing or inpatient evaluation. I discussed with the patient/guardian the need to see the urologist for further evaluation of the symptoms. ED course: Pt markedly improved, + non-obstructing stones, + mild inflammation around stents, will dc home with abx and urology f/u. Much more comfortable, thankful, and using cell phone.. 08/28 17:18 Order name: Basic Metabolic Panel; Complete Time: 18:59 rn 08/28 17:18 Order name: CBC with Diff; Complete Time: 18:06 rn 08/28 17:18 Order name: Creatinine for Radiology; Complete Time: 18:59 rn 08/28 17:18 Order name: Hepatic Function; Complete Time: 18:59 rn 08/28 17:18 Order name: Lipase; Complete Time: 18:59 rn 08/28 17:18 Order name: Urine Microscopic Only; Complete Time: 18:06 rn 08/28 17:18 Order name: IV Saline Lock; Complete Time: 17:32 rn 08/28 17:18 Order name: Labs collected and sent; Complete Time: 17:32 rn 08/28 17:18 Order name: CT Stone Protocol; Complete Time: 19:11 rn 08/28 17:18 Order name: Urine Test (obtain specimen); Complete Time: 17:42 rn 08/28 18:02 Order name: Urine Culture [facility] 08/28 17:18 Order name: Urine Dipstick-Ancillary (obtain specimen); Complete Time: 17:42 rn Administered Medications: 17:42 Drug: Demerol 25 mg Route: IVP; Site: right antecubital; aj1 18:59 Follow up: Response: No adverse reaction; Pain is decreased; RASS: Alert and Calm (0) [facility] 17:42 Drug: NS 0.9% 1000 ml Route: IV; Rate: 1000 ml; Site: right antecubital; aj1 20:03 Follow up: Response: No adverse reaction; IV Status: Order to discontinue infusion; IV jb4 Intake: 300ml 18:59 Drug: Rocephin - (cefTRIAXone) 1 grams Route: IVPB; Infused Over: 30 mins; Site: right aj1 antecubital; Disposition: 08/28/19 19:15 Discharged to Home. Impression: Urinary tract infection, site not specified. - Condition is Stable. - Discharge Instructions: Urinary Tract Infection, Adult, Ureteral Stent Implantation, Care After. - Prescriptions for Tylenol- Codeine #3 300-30 mg Oral Tablet - take 1 tablet by ORAL route every 6 hours As needed; 15 tablet. cefpodoxime 100 mg Oral Tablet - take 2 tablet by ORAL route every 12 hours for 10 days take with food; 40 tablet. - Medication Reconciliation Form, Thank You Letter, Antibiotic Education, Prescription Opioid Use form. - Follow up: Private Physician; When: As needed; Reason: Recheck today's complaints, Re-evaluation by your physician. - Problem is an ongoing problem. - Symptoms have improved. Signatures: Dispatcher [employer] EDMS Marleni Zarate RN RN aj1 Kim Woodard RN RN Josué Malloy MD MD rn Marinas, Patrick, ESTIMATION MANAGER ESTIMATION MANAGER pm1 Pilar Guadalupe RN RN tw2 Alvarez Tellez RN RN jb4 Corrections: (The following items were deleted from the chart) 20:03 19:15 08/28/2019 19:15 Discharged to Home. Impression: Urinary tract infection, site jb4 not specified. Condition is Stable. Forms are Medication Reconciliation Form, Thank You Letter, Antibiotic Education, Prescription Opioid Use. Follow up: Private Physician; When: As needed; Reason: Recheck today's complaints, Re-evaluation by your physician. Problem is an ongoing problem. Symptoms have improved. rn
[2019-08-28 20:30] VITALS: TEMP 98.5
[2019-08-28 20:36] VITALS: BP 155/105; O2SAT 100
== END 2019-08-28 20:03 | disposition home or self-care (01) ==
LOC: ER 16:54
DX: N39.0 Urinary tract infection, site not specified (principal); Z87.442 Personal history of urinary calculi
CPT/HCPCS: 96361; 87088; 85025; 87086; 80048; 36415; 80076; 81015; 83690; 76377; 74176; 96375; 96374; 99284; J2175; J0696; J7030

== ENCOUNTER 2020-11-28 18:41 | Emergency (ER) | payer OTHER ==
--- OUTSIDE RECORDS SUMMARY | 2020-11-28 18:45 | XMS REPORT | Continuity of Care Document ---
:1980 Author Organization [facility] t Address [address] [place] [address] Care Team Providers Name Role Phone DEBRA ENG Attending Clinician Unavailable ELIDA Attending Clinician Unavailable ABDULLAHI CERDA Admitting Clinician Unavailable Problems This patient has no known problems. Allergies, Adverse Reactions, Alerts This patient has no known allergies or adverse reactions. Medications This patient has no known medications. Procedures This patient has no known procedures. Results Test Test Test Comments Results Result Source Description Time Comments CT, CHEST WITH 2019-07- Reason for FINAL REPORT PATIENT ID: IV CONTRAST- PE 20 exam:->BACK [id number] TECHNIQUE: CT TEST DESIGN 06:01:00 PAINReason for scan of the chest WITH exam:->SHORTNESS intravenous contrast. OF BREATHIs the Dose modulation, patient iterative reconstruction, ?->NoWhat and/or weight-based is the patient's adjustment of the mA/kV sedation was utilized to reduce requirement?->No the radiation dose to as Sedation low as reasonably achievable. INDICATION: Positive d-dimer, [...] MDReport Verified Date/Time: 08/06/2019 06:01:51 , ABDOMEN 2019-07- Reason for FINAL REPORT PATIENT ID: 20 exam:->post [id number] EXAM: CT of the 04:08:00 ureteral abdomen and pelvis, with stentingReason for contrast CLINICAL exam:->SHORTNESS HISTORY: Abdominal pain OF BREATHIs the post ureteral stenting. patient TECHNIQUE: CT of the ?->NoWhat abdomen and pelvis was is the patient's performed with sedation intravenous contrast requirement?->No administration. This Sedation exam was performed according to our departmental [...] bowel obstruction or abnormal wall thickening. Normal appendix.PERITONEUM/RETRO PERITONEUM: No free air, free fluid or fluid collection. VESSELS: Within normal limits. LYMPH NODES: No abdominal or pelvic lymphadenopathy.SOFT TISSUES: Within normal limits.BONES: Within normal limits. IMPRESSION: Bilateral nephroureteral stents in place.Punctate bilateral nonobstructing renal stones. Punctate nonobstructing left distal ureteral stone.No hydroureteronephrosis or perinephric stranding. Signed: Adina Schaffer MDReport Verified Date/Time: 08/06/2019 04:08:20 D-DIMER 2019-08-06 03:25:00 Test Item Value Reference Range Interpretation Comme nts D-DIMER QUANTITATIVE (BEAKER) (test code = 671) 2.87 MG/L FEU <0.50 H Intended Use: The D-Dimer Assay can be used to aid in the diagnosis of Deep Vein Thrombosis (DVT) and Pulmonary Embolism Disease (PED).In patients with low pre- test probability, various studies concerning STA Liatest D-dimer test have reported that with a cutoff value of 0.50 MG/L FEU, the Negative Predictive Value (NPV) regarding the exclusion of thrombosis is within 95-100% range.RAD, CHEST, 1 VIEW, NON [id number] 03:24:00Reason for exam:->BACK PAINReason for exam:->SHORTNESS OF BREATHIs the patient ?->NoShould this be performed at the bedside?->YesFINAL REPORT INDICATION: BACK PAINSHORTNESS OF BREATH COMPARISON: None TECHNIQUE: Single frontal view of the chest. FINDINGS: Lungs and pleura: Clear lungs. No effusion.Heart and mediastinum: Normal heart size. Unremarkable mediastinal contours.Osseous structures: No acute abnormality.Other: None. IMPRESSION: No acute intrathoracic abnormality. Signed: Bebeto Lawson MDReport Verified Date/Time: 08/06/2019 03:24:23 PREGNANCY SCREEN, [id number] 21:20:00 Test Item Value Reference Range Interpretation Comments TEST URINE (BEAKER) (test Negative code = 583) URINALYSIS W/ REFLEX URINE [id number] 21:19:00 Test Item Value Reference Range Interpretation Comments COLOR (BEAKER) (test code = 470) Yellow CLARITY (BEAKER) (test code = 469) Clear SPECIFIC GRAVITY UA (BEAKER) (test 1.022 1.001-1.035 code = 468) PH UA (BEAKER) (test code = 467) 6.0 5.0-8.0 PROTEIN UA (BEAKER) (test code = 30 mg/dL Negative A 464) GLUCOSE UA (BEAKER) (test code = Negative Negative 365) KETONES UA (BEAKER) (test code = Negative Negative 371) BILIRUBIN UA (BEAKER) (test code = Negative Negative 462) BLOOD UA (BEAKER) (test code = 461) Moderate Negative A NITRITE UA (BEAKER) (test code = Negative Negative 465) LEUKOCYTE ESTERASE UA (BEAKER) Large Negative A (test code = 466) UROBILINOGEN UA (BEAKER) (test code 0.2 mg/dL 0.2-1.0 = 463) RBC UA (BEAKER) (test code = 519) 85 /HPF WBC UA (BEAKER) (test code = 520) 43 /HPF MUCUS (BEAKER) (test code = 1574) Few SQUAMOUS EPITHELIAL (BEAKER) (test 2 /HPF code = 516) SOURCE(BEAKER) (test code = 7315) BASIC METABOLIC [id number] 21:18:00 Test Item Value Reference Range Interpretation Comments SODIUM (BEAKER) (test 139 meq/L 136-145 code = 381) POTASSIUM (BEAKER) 4.5 meq/L 3.5-5.1 Specimen slightly (test code = 379) hemolyzed CHLORIDE (BEAKER) 108 meq/L 98-107 H (test code = 382) CO2 (BEAKER) (test 24 meq/L 22-29 code = 355) BLOOD UREA NITROGEN 18 mg/dL 7-21 (BEAKER) (test code = 354) CREATININE (BEAKER) 0.76 mg/dL 0.57-1.25 Specimen slightly (test code = 358) hemolyzed GLUCOSE RANDOM 98 mg/dL 70-105 (BEAKER) (test code = 652) CALCIUM (BEAKER) 9.4 mg/dL 8.4-10.2 (test code = 697) EGFR (BEAKER) (test INSUFFIC IENT CLINICAL code = 1092) DATA TO CALCULA TE ESTIMATED GFR. CBC W/PLT COUNT & AUTO [id number] 21:07:00 Test Item Value Reference Range Interpretation Comments WHITE BLOOD CELL COUNT (BEAKER) 8.3 K/ L 3.5-10.5 (test code = 775) RED BLOOD CELL COUNT (BEAKER) 4.30 M/ L 3.93-5.22 (test code = 761) HEMOGLOBIN (BEAKER) (test code = 12.4 GM/DL 11.2-15.7 410) HEMATOCRIT (BEAKER) (test code = 39.1 % 34.1-44.9 411) MEAN CORPUSCULAR VOLUME (BEAKER) 90.9 fL 79.4-94.8 (test code = 753) MEAN CORPUSCULAR HEMOGLOBIN 28.8 pg 25.6-32.2 (BEAKER) (test code = 751) MEAN CORPUSCULAR HEMOGLOBIN CONC 31.7 GM/DL 32.2-35.5 L (BEAKER) (test code = 752) RED CELL DISTRIBUTION WIDTH 13.2 % 11.7-14.4 (BEAKER) (test code = 412) PLATELET COUNT (BEAKER) (test 666 K/CU MM 150-450 H code = 756) MEAN PLATELET VOLUME (BEAKER) 8.8 fL 9.4-12.3 L (test code = 754) NUCLEATED RED BLOOD CELLS 0 /100 WBC 0-0 (BEAKER) (test code = 413) NEUTROPHILS RELATIVE PERCENT 69 % (BEAKER) (test code = 429) LYMPHOCYTES RELATIVE PERCENT 22 % (BEAKER) (test code = 430) MONOCYTES RELATIVE PERCENT 7 % (BEAKER) (test code = 431) EOSINOPHILS RELATIVE PERCENT 2 % (BEAKER) (test code = 432) BASOPHILS RELATIVE PERCENT 0 % (BEAKER) (test code = 437) NEUTROPHILS ABSOLUTE COUNT 5.71 K/ L 1.56-6.13 (BEAKER) (test code = 670) LYMPHOCYTES ABSOLUTE COUNT 1.78 K/ L 1.18-3.74 (BEAKER) (test code = 414) MONOCYTES ABSOLUTE COUNT (BEAKER) 0.54 K/ L 0.24-0.36 H (test code = 415) EOSINOPHILS ABSOLUTE COUNT 0.17 K/ L 0.04-0.36 (BEAKER) (test code = 416) BASOPHILS ABSOLUTE COUNT (BEAKER) 0.03 K/ L 0.01-0.08 (test code = 417) IMMATURE GRANULOCYTES-RELATIVE 0 % 0-1 PERCENT (BEAKER) (test code = 2801) BLOOD [id number] 00:00:00 Test Item Value Reference Range Interpretation Comments CULTURE (BEAKER) (test No growth in 5 days code = 1095) BLOOD [id number] 00:00:00 Test Item Value Reference Range Interpretation Comments CULTURE (BEAKER) (test No growth in 5 days code = 1095) SCREEN, [id number] 07:02:00 Test Item Value Reference Range Interpretation Comments TEST URINE (BEAKER) (test Negative code = 583) BASIC METABOLIC [id number] 03:43:00 Test Item Value Reference Range Interpretation Comments SODIUM (BEAKER) (test 137 meq/L 136-145 code = 381) POTASSIUM (BEAKER) 3.3 meq/L 3.5-5.1 L (test code = 379) CHLORIDE (BEAKER) 107 meq/L 98-107 (test code = 382) CO2 (BEAKER) (test 22 meq/L 22-29 code = 355) BLOOD UREA NITROGEN 14 mg/dL 7-21 (BEAKER) (test code = 354) CREATININE (BEAKER) 0.62 mg/dL 0.57-1.25 (test code = 358) GLUCOSE RANDOM 83 mg/dL 70-105 (BEAKER) (test code = 652) CALCIUM (BEAKER) 8.1 mg/dL 8.4-10.2 L (test code = 697) EGFR (BEAKER) (test INSUFFIC IENT CLINICAL code = 1092) DATA TO CALCULA TE ESTIMATED GFR. CBC W/PLT COUNT & AUTO [id number] 02:58:00 Test Item Value Reference Range Interpretation Comments WHITE BLOOD CELL COUNT (BEAKER) 5.0 K/ L 3.5-10.5 (test code = 775) RED BLOOD CELL COUNT (BEAKER) 3.67 M/ L 3.93-5.22 L (test code = 761) HEMOGLOBIN (BEAKER) (test code = 10.6 GM/DL 11.2-15.7 L 410) HEMATOCRIT (BEAKER) (test code = 32.2 % 34.1-44.9 L 411) MEAN CORPUSCULAR VOLUME (BEAKER) 87.7 fL 79.4-94.8 (test code = 753) MEAN CORPUSCULAR HEMOGLOBIN 28.9 pg 25.6-32.2 (BEAKER) (test code = 751) MEAN CORPUSCULAR HEMOGLOBIN CONC 32.9 GM/DL 32.2-35.5 (BEAKER) (test code = 752) RED CELL DISTRIBUTION WIDTH 12.9 % 11.7-14.4 (BEAKER) (test code = 412) PLATELET COUNT (BEAKER) (test 280 K/CU MM 150-450 code = 756) MEAN PLATELET VOLUME (BEAKER) 9.2 fL 9.4-12.3 L (test code = 754) NUCLEATED RED BLOOD CELLS 0 /100 WBC 0-0 (BEAKER) (test code = 413) NEUTROPHILS RELATIVE PERCENT 57 % (BEAKER) (test code = 429) LYMPHOCYTES RELATIVE PERCENT 29 % (BEAKER) (test code = 430) MONOCYTES RELATIVE PERCENT 12 % (BEAKER) (test code = 431) EOSINOPHILS RELATIVE PERCENT 1 % (BEAKER) (test code = 432) BASOPHILS RELATIVE PERCENT 0 % (BEAKER) (test code = 437) NEUTROPHILS ABSOLUTE COUNT 2.82 K/ L 1.56-6.13 (BEAKER) (test code = 670) LYMPHOCYTES ABSOLUTE COUNT 1.43 K/ L 1.18-3.74 (BEAKER) (test code = 414) MONOCYTES ABSOLUTE COUNT (BEAKER) 0.60 K/ L 0.24-0.36 H (test code = 415) EOSINOPHILS ABSOLUTE COUNT 0.07 K/ L 0.04-0.36 (BEAKER) (test code = 416) BASOPHILS ABSOLUTE COUNT (BEAKER) 0.01 K/ L 0.01-0.08 (test code = 417) IMMATURE GRANULOCYTES-RELATIVE 1 % 0-1 PERCENT (BEAKER) (test code = 2801) BASIC METABOLIC [id number] 06:50:00 Test Item Value Reference Range Interpretation Comments SODIUM (BEAKER) (test 132 meq/L 136-145 L code = 381) POTASSIUM (BEAKER) 3.2 meq/L 3.5-5.1 L (test code = 379) CHLORIDE (BEAKER) 105 meq/L 98-107 (test code = 382) CO2 (BEAKER) (test 20 meq/L 22-29 L code = 355) BLOOD UREA NITROGEN 11 mg/dL 7-21 (BEAKER) (test code = 354) CREATININE (BEAKER) 0.65 mg/dL 0.57-1.25 (test code = 358) GLUCOSE RANDOM 83 mg/dL 70-105 (BEAKER) (test code = 652) CALCIUM (BEAKER) 8.0 mg/dL 8.4-10.2 L (test code = 697) EGFR (BEAKER) (test INSUFFIC IENT CLINICAL code = 1092) DATA TO CALCULA TE ESTIMATED GFR. CBC W/PLT COUNT & AUTO [id number] 04:00:00 Test Item Value Reference Range Interpretation Comments WHITE BLOOD CELL COUNT (BEAKER) 11.5 K/ L 3.5-10.5 H (test code = 775) RED BLOOD CELL COUNT (BEAKER) 3.79 M/ L 3.93-5.22 L (test code = 761) HEMOGLOBIN (BEAKER) (test code = 11.1 GM/DL 11.2-15.7 L 410) HEMATOCRIT (BEAKER) (test code = 33.3 % 34.1-44.9 L 411) MEAN CORPUSCULAR VOLUME (BEAKER) 87.9 fL 79.4-94.8 (test code = 753) MEAN CORPUSCULAR HEMOGLOBIN 29.3 pg 25.6-32.2 (BEAKER) (test code = 751) MEAN CORPUSCULAR HEMOGLOBIN CONC 33.3 GM/DL 32.2-35.5 (BEAKER) (test code = 752) RED CELL DISTRIBUTION WIDTH 12.8 % 11.7-14.4 (BEAKER) (test code = 412) PLATELET COUNT (BEAKER) (test 263 K/CU MM 150-450 code = 756) MEAN PLATELET VOLUME (BEAKER) 9.2 fL 9.4-12.3 L (test code = 754) NUCLEATED RED BLOOD CELLS 0 /100 WBC 0-0 (BEAKER) (test code = 413) NEUTROPHILS RELATIVE PERCENT 83 % (BEAKER) (test code = 429) LYMPHOCYTES RELATIVE PERCENT 7 % (BEAKER) (test code = 430) MONOCYTES RELATIVE PERCENT 9 % (BEAKER) (test code = 431) EOSINOPHILS RELATIVE PERCENT 0 % (BEAKER) (test code = 432) BASOPHILS RELATIVE PERCENT 0 % (BEAKER) (test code = 437) NEUTROPHILS ABSOLUTE COUNT 9.57 K/ L 1.56-6.13 H (BEAKER) (test code = 670) LYMPHOCYTES ABSOLUTE COUNT 0.84 K/ L 1.18-3.74 L (BEAKER) (test code = 414) MONOCYTES ABSOLUTE COUNT (BEAKER) 1.01 K/ L 0.24-0.36 H (test code = 415) EOSINOPHILS ABSOLUTE COUNT 0.01 K/ L 0.04-0.36 L (BEAKER) (test code = 416) BASOPHILS ABSOLUTE COUNT (BEAKER) 0.01 K/ L 0.01-0.08 (test code = 417) IMMATURE GRANULOCYTES-RELATIVE 1 % 0-1 PERCENT (BEAKER) (test code = 2801) U/S, RENAL, [id number] 02:21:00Reason for exam:->akiFINAL REPORT Renal ultrasound dated [...] renal collecting system, measuring 4 mm. A left-sided nonobstructing stone in the midportion measures 5 mm. No cyst is identified on either kidney. Doppler ultrasound demonstrates a patent main renal artery and vein bilaterally. The distal portions of bilateral ureteral stents are noted in the partially decompressed urinary bladder. Impression: Bilateral nonobstructing kidney stones. No hydronephrosis. Partially visualized ureteral stents in the urinary bladder. Signed: Apolinar BeltranortVerified Date/Time: 07/24/2019 02:21:25 RAD, ABDOMEN/KUB, 1 VIEW [id number] 01:26:00Reason for exam:->stent positioningShould this be performed at the bedside?->YesFINAL REPORT CLINICAL HISTORY: Stent positioning COMPARISON: None. FINDINGS:2 supine views of the abdomen are submitted. Bilateral ureteral stents appear appropriately positioned. The abdominal bowel gas pattern is normal. There is no evidence of organomegaly or ascites. Thereis no acute bony abnormality. The lung bases are clear. Signed: Apolinar Beltraneport Verified Date/Time: 07/24/2019 01:26:46 CBC W/PLT COUNT & AUTO [id number] 06:40:00 Test Item Value Reference Range Interpretation Comments WHITE BLOOD CELL COUNT (BEAKER) 16.8 K/ L 3.5-10.5 H (test code = 775) RED BLOOD CELL COUNT (BEAKER) 4.04 M/ L 3.93-5.22 (test code = 761) HEMOGLOBIN (BEAKER) (test code = 11.9 GM/DL 11.2-15.7 410) HEMATOCRIT (BEAKER) (test code = 36.1 % 34.1-44.9 411) MEAN CORPUSCULAR VOLUME (BEAKER) 89.4 fL 79.4-94.8 (test code = 753) MEAN CORPUSCULAR HEMOGLOBIN 29.5 pg 25.6-32.2 (BEAKER) (test code = 751) MEAN CORPUSCULAR HEMOGLOBIN CONC 33.0 GM/DL 32.2-35.5 (BEAKER) (test code = 752) RED CELL DISTRIBUTION WIDTH 12.8 % 11.7-14.4 (BEAKER) (test code = 412) PLATELET COUNT (BEAKER) (test 258 K/CU MM 150-450 code = 756) MEAN PLATELET VOLUME (BEAKER) 9.4 fL 9.4-12.3 (test code = 754) NUCLEATED RED BLOOD CELLS 0 /100 WBC 0-0 (BEAKER) (test code = 413) NEUTROPHILS RELATIVE PERCENT 93 % (BEAKER) (test code = 429) LYMPHOCYTES RELATIVE PERCENT 2 % (BEAKER) (test code = 430) MONOCYTES RELATIVE PERCENT 4 % (BEAKER) (test code = 431) EOSINOPHILS RELATIVE PERCENT 0 % (BEAKER) (test code = 432) BASOPHILS RELATIVE PERCENT 0 % (BEAKER) (test code = 437) NEUTROPHILS ABSOLUTE COUNT 15.68 K/ L 1.56-6.13 H (BEAKER) (test code = 670) LYMPHOCYTES ABSOLUTE COUNT 0.39 K/ L 1.18-3.74 L (BEAKER) (test code = 414) MONOCYTES ABSOLUTE COUNT (BEAKER) 0.65 K/ L 0.24-0.36 H (test code = 415) EOSINOPHILS ABSOLUTE COUNT 0.00 K/ L 0.04-0.36 L (BEAKER) (test code = 416) BASOPHILS ABSOLUTE COUNT (BEAKER) 0.01 K/ L 0.01-0.08 (test code = 417) IMMATURE GRANULOCYTES-RELATIVE 1 % 0-1 PERCENT (BEAKER) (test code = 2801) BASIC METABOLIC [id number] 06:32:00 Test Item Value Reference Range Interpretation Comments SODIUM (BEAKER) (test 135 meq/L 136-145 L code = 381) POTASSIUM (BEAKER) 3.9 meq/L 3.5-5.1 (test code = 379) CHLORIDE (BEAKER) 109 meq/L 98-107 H (test code = 382) CO2 (BEAKER) (test 19 meq/L 22-29 L code = 355) BLOOD UREA NITROGEN 19 mg/dL 7-21 (BEAKER) (test code = 354) CREATININE (BEAKER) 0.78 mg/dL 0.57-1.25 (test code = 358) GLUCOSE RANDOM 123 mg/dL 70-105 H (BEAKER) (test code = 652) CALCIUM (BEAKER) 8.1 mg/dL 8.4-10.2 L (test code = 697) EGFR (BEAKER) (test INSUFFIC IENT CLINICAL code = 1092) DATA TO CALCULA TE ESTIMATED GFR. FL, FLUORO, NON-SPECIFIC, UP TO 1 [id number] 02:47:00Reason for exam:- >left ureteral stent placementFINAL REPORT Examination: Retrograde pyelography 75 fluoroscopic spot views were obtained during the procedure by the ordering service. Images are nondiagnostic as no radiologist was present at the time of imaging. Fluoroscopic time was not provided. Please see the procedurereport for details. Signed: Apolinar Beltran MDReport Verified Date/Time: 07/23/2019 02:47:24 LACTIC ACID, [id number] 02:22:00 Test Item Value Reference Range Interpretation Comments LACTATE BLOOD VENOUS (2) (BEAKER) 1.0 mmol/L 0.5-2.2 (test code = 2872) LACTIC ACID, [id number] 23:42:00 Test Item Value Reference Range Interpretation Comments LACTATE BLOOD VENOUS (2) (BEAKER) 0.5 mmol/L 0.5-2.2 (test code = 2027) [id number] 22:29:00 Test Item Value Reference Range Interpretation Comments PROCALCITONIN (BEAKER) (test code 0.11 ng/mL <0.05 H = 3036) SEPSIS RISK (ng/mL)Low: 0.05-0.50Intermediate: 0.51-2.00High: >=2.01TROPONIN [id number] 22:25:00 Test Item Value Reference Range Interpretation Comments TROPONIN I (BEAKER) (test code = 0.01 ng/mL 0.00-0.03 397) Troponin I (TnI) levels must be interpreted [...] acute neurological disease, and persistent tachyarrhythmia.BASIC METABOLIC [id number] 22:23:00 Test Item Value Reference Range Interpretation Comments SODIUM (BEAKER) (test 134 meq/L 136-145 L code = 381) POTASSIUM (BEAKER) 3.7 meq/L 3.5-5.1 Specimen slightly (test code = 379) hemolyzed CHLORIDE (BEAKER) 105 meq/L 98-107 (test code = 382) CO2 (BEAKER) (test 19 meq/L 22-29 L code = 355) BLOOD UREA NITROGEN 21 mg/dL 7-21 (BEAKER) (test code = 354) CREATININE (BEAKER) 0.81 mg/dL 0.57-1.25 Specimen slightly (test code = 358) hemolyzed GLUCOSE RANDOM 105 mg/dL 70-105 (BEAKER) (test code = 652) CALCIUM (BEAKER) 8.4 mg/dL 8.4-10.2 (test code = 697) EGFR (BEAKER) (test INSUFFIC IENT CLINICAL code = 1092) DATA TO CALCULA TE ESTIMATED GFR. [id number] 22:19:00 Test Item Value Reference Range Interpretation Comments MAGNESIUM (BEAKER) 1.9 mg/dL 1.6-2.6 Specimen slightly (test code = 627) hemolyzed URIC [id number] 22:19:00 Test Item Value Reference Range Interpretation Comments URIC ACID (BEAKER) 5.0 mg/dL 2.6-7.2 Specimen slightly (test code = 773) hemolyzed HEPATIC FUNCTION [id number] 22:19:00 Test Item Value Reference Range Interpretation Comments TOTAL PROTEIN (BEAKER) 7.4 gm/dL 6.0-8.3 Speci men slightly (test code = 770) hemolyzed ALBUMIN (BEAKER) (test 4.0 g/dL 3.5-5.0 Speci men slightly code = 1145) hemolyzed BILIRUBIN TOTAL 0.5 mg/dL 0.2-1.2 Specimen sli ghtly (BEAKER) (test code = hemoly zed 377) BILIRUBIN DIRECT 0.2 mg/dL 0.1-0.5 Specimen sl ightly (BEAKER) (test code = hemoly zed 706) ALKALINE PHOSPHATASE 60 U/L 40-150 (BEAKER) (test code = 346) AST (SGOT) (BEAKER) 16 U/L 5-34 Specimen slightly (test code = 353) hemolyzed ALT (SGPT) (BEAKER) 9 U/L 6-55 Specimen slightly (test code = 347) hemolyzed [id number] 22:19:00 Test Item Value Reference Range Interpretation Comments LIPASE (BEAKER) (test code = 749) 5 U/L 8-78 L LACTIC ACID, [id number] 22:15:00 Test Item Value Reference Range Interpretation Comments LACTATE BLOOD VENOUS (2) (BEAKER) 0.8 mmol/L 0.5-2.2 (test code = 2872) CBC W/PLT COUNT & AUTO [id number] 22:05:00 Test Item Value Reference Range Interpretation Comments WHITE BLOOD CELL COUNT (BEAKER) 19.6 K/ L 3.5-10.5 H (test code = 775) RED BLOOD CELL COUNT (BEAKER) 4.30 M/ L 3.93-5.22 (test code = 761) HEMOGLOBIN (BEAKER) (test code = 13.0 GM/DL 11.2-15.7 410) HEMATOCRIT (BEAKER) (test code = 37.9 % 34.1-44.9 411) MEAN CORPUSCULAR VOLUME (BEAKER) 88.1 fL 79.4-94.8 (test code = 753) MEAN CORPUSCULAR HEMOGLOBIN 30.2 pg 25.6-32.2 (BEAKER) (test code = 751) MEAN CORPUSCULAR HEMOGLOBIN CONC 34.3 GM/DL 32.2-35.5 (BEAKER) (test code = 752) RED CELL DISTRIBUTION WIDTH 12.8 % 11.7-14.4 (BEAKER) (test code = 412) PLATELET COUNT (BEAKER) (test 351 K/CU MM 150-450 code = 756) MEAN PLATELET VOLUME (BEAKER) 9.7 fL 9.4-12.3 (test code = 754) NUCLEATED RED BLOOD CELLS 0 /100 WBC 0-0 (BEAKER) (test code = 413) NEUTROPHILS RELATIVE PERCENT 89 % (BEAKER) (test code = 429) LYMPHOCYTES RELATIVE PERCENT 4 % (BEAKER) (test code = 430) MONOCYTES RELATIVE PERCENT 7 % (BEAKER) (test code = 431) EOSINOPHILS RELATIVE PERCENT 0 % (BEAKER) (test code = 432) BASOPHILS RELATIVE PERCENT 0 % (BEAKER) (test code = 437) NEUTROPHILS ABSOLUTE COUNT 17.38 K/ L 1.56-6.13 H (BEAKER) (test code = 670) LYMPHOCYTES ABSOLUTE COUNT 0.69 K/ L 1.18-3.74 L (BEAKER) (test code = 414) MONOCYTES ABSOLUTE COUNT (BEAKER) 1.38 K/ L 0.24-0.36 H (test code = 415) EOSINOPHILS ABSOLUTE COUNT 0.00 K/ L 0.04-0.36 L (BEAKER) (test code = 416) BASOPHILS ABSOLUTE COUNT (BEAKER) 0.02 K/ L 0.01-0.08 (test code = 417) IMMATURE GRANULOCYTES-RELATIVE 1 % 0-1 PERCENT (BEAKER) (test code = 2801) CREATININE, RANDOM [id number] 22:01:00 Test Item Value Reference Range Interpretation Comments CREATININE URINE (BEAKER) (test 99.2 mg/dL code = 375) Reference Range: No NormalsSODIUM, RANDOM [id number] 22:01:00 Test Item Value Reference Range Interpretation Comments SODIUM URINE (BEAKER) (test code = 85 meq/L 243) Reference Range: No NormalsURINALYSIS WITH MICROSCOPIC IF [id number] 21:59:00 Test Item Value Reference Range Interpretation Comments COLOR (BEAKER) (test code = 470) Yellow CLARITY (BEAKER) (test code = 469) Clear SPECIFIC GRAVITY UA (BEAKER) (test 1.022 1.001-1.035 code = 468) PH UA (BEAKER) (test code = 467) 6.5 5.0-8.0 PROTEIN UA (BEAKER) (test code = 50 mg/dL Negative A 464) GLUCOSE UA (BEAKER) (test code = Negative Negative 365) KETONES UA (BEAKER) (test code = 60 mg/dL Negative A 371) BILIRUBIN UA (BEAKER) (test code = Negative Negative 462) BLOOD UA (BEAKER) (test code = 461) Small Negative A NITRITE UA (BEAKER) (test code = Negative Negative 465) LEUKOCYTE ESTERASE UA (BEAKER) Moderate Negative A (test code = 466) UROBILINOGEN UA (BEAKER) (test code 0.2 mg/dL 0.2-1.0 = 463) SOURCE(BEAKER) (test code = 2795) URINALYSIS [id number] 21:59:00 Test Item Value Reference Range Interpretation Comments RBC UA (BEAKER) (test code = 519) 7 /HPF WBC UA (BEAKER) (test code = 520) 13 /HPF SQUAMOUS EPITHELIAL (BEAKER) (test 1 /HPF code = 516) YEAST (BEAKER) (test code = 1585) Rare SCREEN, [id number] 21:56:00 Test Item Value Reference Range Interpretation Comments TEST URINE (BEAKER) (test Negative code = 583)
[2020-11-28 19:22] LABS: Absolute Lymphocytes (CBC) 3.3 K/uL (0.7-4.9); Basophils % 0.4 % (0-1.3); Hematocrit 46.1 % (36.0-45.0); Lymphocytes % 20.6 % (15.3-44.8); MPV 7.8 fL (7.6-11.3); RBC Red Blood Cell Count 5.19 M/uL (3.86-4.86)
[2020-11-28] MEDS ORDERED: MORPHINE 4 MG/ML SYR ONE ×2 (19:27→21:22)
[2020-11-28] MEDS ORDERED: NA CHLORIDE 0.9% 1,000 ML ONE ×2 (19:28→21:36)
[2020-11-28] MEDS ORDERED: ONDANSETRON 4 MG/2 ML VIAL ONE (19:28)
[2020-11-28 19:52] LABS: Albumin 5.1 g/dL (3.4-5.0); Bilirubin Direct 0.2 mg/dL (0-0.2); Bilirubin Total 0.8 mg/dL (0.2-1.0); Potassium 3.3 mmol/L (3.5-5.1); Protein, Total 9.2 g/dL (6.4-8.2)
--- NOTE | 2020-11-28 20:26 | RAD REPORT ---
EXAM DESCRIPTION: CT - Stone Protocol - 11/28/2020 7:59 pm CLINICAL HISTORY: FLANK PAIN COMPARISON: Stone Protocol dated 08/28/2019; Abdomen Pelvis Wo Contrast dated 07/22/2019 TECHNIQUE: Axial 5 mm thick images were obtained without oral or IV contrast. The [id number] span s the entirety of the system including uppermost abdomen and lung bases. All CT scans are performed using dose optimization technique as appropriate and may include automated exposure control or mA/KV adjustment according to patient size. FINDINGS: No hydronephrosis is present and no obstructing ureteral calculi. Patient has numerous narinder ateral 1-3 mm sized calyx or pyramid calculi similar to prior imaging. No suspicious renal masses. Is odense masses and pyelonephritis are not excluded on a stone protocol CT scan. No significant adrenal finding. Urinary bladder is contracted. No bladder calculi seen. Ureteral stents have been removed s maria isabel the August 2019 study. Punctate calculi the pelvic floor are believed be outside of the syst em. No uterine abnormality. A 5.6 centimeter oval right adnexal cystic mass is present. In the left adnex um there is a 6.3 centimeter cystic mass that is either 2 abutting masses or a bilobed single mass. A ttenuation values range from 5-15 Hounsfield units. These pelvic cystic masses have enlarged over ser ial imaging. Cystic masses appear to be within physiologic range of functional cyst on prior imaging. No calcification or fat components. Imaged portions of the liver, spleen and pancreas show no suspicious findings on non-contrast imaging . No gallbladder or biliary tree abnormality identified. No suspicious bowel findings. No hernia, mass or bulky lymphadenopathy noted. No free air, free fluid or inflammatory stranding. No significant bony abnormality. IMPRESSION: No hydronephrosis, obstructing calculus or acute finding identifiable. Patient contin ues to show nonobstructing 1-3 mm size calyx or pyramid calculi in each kidney. Cystic adnexal masses 5.6 cm on the right and 6.3 cm on the left have shown progressive enlargement o georges serial imaging. These could be persistent enlarging functional cysts, bilateral cystadenomas or p ossibly bilateral hydrosalpinx. Pelvic cystic masses do not appear to be acute or emergent. Follow-up outpatient ultrasound could be performed for further characterization. Isodense masses and pyelonephritis are not excluded on stone protocol technique.
[2020-11-28 22:22] LABS: Urine Blood 2+ (Negative); Urine Glucose Negative (Negative); Urine Protein 2+ (Negative); Urine Specific Gravity 1.025 (1.005-1.030); Urine pH 6.5 (5.0-7.0)
[2020-11-28 22:32] LABS: Urine Specific Gravity/Preg 1.025 (1.005-1.030)
[2020-11-28] MEDS ORDERED: LORazepam 2 MG/ML VIAL ONE (23:00)
[2020-11-28] MEDS ORDERED: DIPHENHYDRAMINE 50 MG/ML VIAL ONE (23:00)
[2020-11-28] MEDS ORDERED: HYDROMORPHONE HCL 0.5 MG/0.5 ML INJ ONE (23:00)
[2020-11-28] MEDS ORDERED: CEFTRIAXONE/SWI 1gm 1 GM/10 ML SYR ONE (23:01)
[2020-11-28] MEDS ORDERED: METOCLOPRAMIDE 10 MG/2mL INJ ONE (23:02)
--- NOTE | 2020-11-28 23:47 | EDPHYS ---
Physician Documentation [facility] Name: Joyce Duran Age: 40 yrs Sex: Female : 1980 Arrival Date: 11/28/2020 Time: 18:44 Bed 5 Private MD: ED Physician Jean Marie Perez HPI: 11/28 19:39 This 40 yrs old Female presents to ER via Wheelchair with complaints of jmm Vomiting, Abdominal Pain, Back Pain. 19:39 The patient presents to the emergency department with nausea, vomiting. Onset: The jmm symptoms/episode began/occurred gradually, 1 day(s) ago. Possible causes: kidney. The symptoms are aggravated by nothing. The symptoms are alleviated by nothing. Associated signs and symptoms: Pertinent negatives: fever. Patient complains of bilateral flank pain for the past 2 days with vomiting. 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 - Social history:: Smoking status: Patient reports the use of cigarette tobacco products, denies chronic smoking, but will smoke occasionally. ROS: 19:39 Constitutional: Negative for fever, chills, and weight loss, Cardiovascular: Negative jmm for chest pain, palpitations, and edema, Respiratory: Negative for shortness of breath, cough, wheezing, and pleuritic chest pain. 19:39 Abdomen/GI: Positive for abdominal pain, nausea and vomiting. 19:39 Back: Positive for flank pain, bilaterally. 19:39 All other systems are negative. Exam: 19:39 Head/Face: atraumatic. Eyes: EOMI, no conjunctival erythema appreciated ENT: Moist jmm Mucus Membranes Neck: Trachea midline, Supple Chest/axilla: Normal chest wall appearance and motion. Cardiovascular: Regular rate and rhythm. No edema appreciated Respiratory: Normal respirations, no respiratory distress appreciated 19:39 Back: Normal ROM Skin: General appearance color normal MS/ Extremity: Moves all extremities, no obvious deformities appreciated, no edema noted to the lower extremities Neuro: Awake and alert, normal gait Psych: Behavior is normal, Mood is normal, Patient is cooperative and pleasant 19:39 Constitutional: The patient appears alert, awake, uncomfortable. 19:39 Abdomen/GI: Inspection: abdomen appears normal, Bowel sounds: normal, Palpation: mild abdominal tenderness, in all quadrants. Vital Signs: 19:01 BP 134 / 82; Pulse 91; Resp 16 S; Temp 97.6(TE); Pulse Ox 100% on R/A; Weight 61.23 kg ca1 (R); Height 5 ft. 2 in. (157.48 cm) (R); Pain 10/10; 20:10 BP 139 / 89; Pulse 95; Resp 17; Pulse Ox 99% ; Pain 8/10; rr5 21:30 BP 126 / 79; Pulse 85; Resp 18; Pulse Ox 100% ; rr5 22:35 BP 131 / 85; Pulse 90; Resp 17; Pulse Ox 98% ; rr5 23:39 BP 120 / 72; Pulse 85; Resp 16; Pulse Ox 98% ; rr5 11/29 00:19 BP 110 / 62; Pulse 80; Resp 16; Pulse Ox 98% ; Pain 0/10; rr5 11/28 19:01 Body Mass Index 24.69 (61.23 kg, 157.48 cm) ca1 MDM: 11/28 19:04 Patient medically screened. [facility] 23:24 Data reviewed: vital signs, nurses notes. Counseling: I had a detailed discussion with [facility] the patient and/or guardian regarding: the historical points, exam findings, and any diagnostic results supporting the discharge/admit diagnosis, the need for outpatient follow up, to return to the emergency department if symptoms worsen or persist or if there are any questions or concerns that arise at home. 23:44 ED course: Imaging studies negative for an acute process. patient admits smoking [facility] marijuana daily. children all have vomiting and diarrhea. Most likely a combination of hyperemesis canibosis/viral enterocolitis. Patient is otherwise given strict return precautions. Patient understood and agrees with the plan of care. . 11/28 19:07 Order name: Basic Metabolic Panel [facility] 11/28 19:07 Order name: CBC with Diff; Complete Time: 19:39 [facility] 11/28 19:07 Order name: Hepatic Function; Complete Time: 19:54 [facility] 11/28 19:07 Order name: Lipase; Complete Time: 19:54 [facility] 11/28 19:08 Order name: Basic Metabolic Panel; Complete Time: 19:54 [facility] 11/28 22:22 Order name: Urine --Ancillary (enter results); Complete Time: 22:36 [facility] 11/28 19:07 Order name: CT Stone Protocol; Complete Time: 20:27 [facility] 11/28 20:30 Order name: US Transvaginal Study (Probe) [facility] 11/28 22:22 Order name: Urine Culture [facility] 11/28 22:22 Order name: Urine Microscopic Only; Complete Time: 23:58 [facility] 11/28 22:22 Order name: Urine Dipstick-Ancillary; Complete Time: 22:36 [facility] 11/28 19:07 Order name: IV Saline Lock; Complete Time: 19:18 [facility] 11/28 19:07 Order name: Labs collected and sent; Complete Time: 19:18 [facility] Administered Medications: 19:15 Drug: NS 0.9% 1000 ml Route: IV; Rate: 1 bolus; Site: left antecubital; rr5 20:15 Follow up: Response: No adverse reaction; IV Status: Completed infusion; IV Intake: rr5 1000ml 19:15 Drug: Zofran (Ondansetron) 4 mg Route: IVP; Site: left antecubital; rr5 20:15 Follow up: Response: No adverse reaction rr5 19:17 Drug: morphine 4 mg {Note: rass 0.} Route: IVP; Site: left antecubital; rr5 20:15 Follow up: Response: No adverse reaction; Pain is unchanged, physician notified; RASS: rr5 Alert and Calm (0) 21:06 Drug: morphine 4 mg Route: IVP; Site: right antecubital; ea 22:00 Follow up: Response: No adverse reaction; Pain is unchanged, physician notified; RASS: rr5 Alert and Calm (0) 22:45 Not Given (different med given): Zofran (Ondansetron) 4 mg IVP once; over 2 minutes [facility] 22:50 Drug: Reglan (metoCLOPramide) 10 mg Route: IVP; Site: left antecubital; rr5 11/29 00:20 Follow up: Response: No adverse reaction; Marked relief of symptoms rr5 11/28 22:52 Drug: Benadryl (diphenhydrAMINE) 12.5 mg Route: IVP; Site: left antecubital; rr5 11/29 00:20 Follow up: Response: No adverse reaction; Marked relief of symptoms rr5 11/28 22:54 Drug: Ativan (LORazepam) 1 mg Route: IVP; Site: left antecubital; rr5 11/29 00:21 Follow up: Response: No adverse reaction; Marked relief of symptoms rr5 11/28 22:56 Drug: Dilaudid (HYDROmorphone) 0.5 mg {Note: rass 0.} Route: IVP; Site: left rr5 antecubital; 11/29 00:21 Follow up: Response: No adverse reaction; Marked relief of symptoms; RASS: Alert and rr5 Calm (0) 11/28 22:58 Drug: Rocephin (cefTRIAXone) 1 grams Route: IV; Rate: calculated rate; Site: left rr5 antecubital; 11/29 00:21 Follow up: Response: No adverse reaction; Marked relief of symptoms; IV Status: rr5 Completed infusion; IV Intake: 10ml Disposition: 06:40 Co-signature as Attending Physician, Jean Marie Perez MD I agree with the assessment and ez plan of care. Disposition: 11/28/20 23:46 Discharged to Home. Impression: Other abdominal pain, Vomiting. - Condition is Stable. - Discharge Instructions: Nausea and Vomiting, Adult. - Prescriptions for Zofran ODT 4 mg Oral tablet,disintegrating - place 1 tablet by TRANSLINGUAL route every 4-6 hours; 20 tablet. Pepcid 20 mg Oral Tablet - take 1 tablet by ORAL route every 12 hours for 10 days; 20 tablet. - Medication Reconciliation Form, Thank You Letter, Antibiotic Education, Prescription Opioid Use form. - Follow up: Private Physician; When: 2 - 3 days; Reason: Recheck today's complaints, Continuance of care, Re-evaluation by your physician. Signatures: Dispatcher [employer] Jean Marie Saul MD MD cha Mickail, Joel, PA PA jmm Antunez, Elena, RN RN ea Roque, Raymond, RN RN rr5 Nathalie Pedraza RN RN ca1 Corrections: (The following items were deleted from the chart) 00:24 11/28 23:46 11/28/2020 23:46 Discharged to Home. Impression: Other abdominal pain; rr5 Vomiting. Condition is Stable. Forms are Medication Reconciliation Form, Thank You Letter, Antibiotic Education, Prescription Opioid Use. Follow up: Private Physician; When: 2 - 3 days; Reason: Recheck today's complaints, Continuance of care, Re-evaluation by your physician. brianda
--- NOTE | 2020-11-28 23:47 | ER ---
Nurse's Notes [facility] Name: Joyce Duran Age: 40 yrs Sex: Female : 1980 Arrival Date: 11/28/2020 Time: 18:44 Bed 5 Private MD: Diagnosis: Other abdominal pain;Vomiting Presentation: 11/28 19:01 Chief complaint: Patient states: Zachery flank pain, N/V x 2 days. HX of kidney stones. ca1 Coronavirus screen: Client denies travel out of the [place] in the last 14 days. nausea, vomiting. Client presents with at least one sign or symptom that may indicate coronavirus-19. Standard/surgical mask placed on the client. Provider contacted for isolation considerations. Ebola Screen: Patient negative for fever greater than or equal to 101.5 degrees Fahrenheit, and additional compatible Ebola Virus Disease symptoms Patient denies exposure to infectious person. Patient denies travel to an Ebola-affected area in the 21 days before illness onset. No symptoms or risks identified at this time. Initial Sepsis Screen: Does the patient meet any 2 criteria? No. Patient's initial sepsis screen is negative. Does the patient have a suspected source of infection? No. Patient's initial sepsis screen is negative. Risk Assessment: Do you want to hurt yourself or someone else? Patient reports no desire to harm self or others. Onset of symptoms was November 28, 2020. 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 - Social history:: Smoking status: Patient reports the use of cigarette tobacco products, denies chronic smoking, but will smoke occasionally. Screenin:18 Abuse screen: Denies threats or abuse. Denies injuries from another. Nutritional rr5 screening: No deficits noted. Tuberculosis screening: No symptoms or risk factors identified. Fall Risk IV access (20 points). Total Moses Fall Scale indicates No Risk (0-24 pts). Assessment: 19:10 General: Appears in no apparent distress. uncomfortable, Behavior is calm, cooperative, rr5 appropriate for age. Pain: Complains of pain in bilateral flank Pain currently is 10 out of 10 on a pain scale. Quality of pain is described as aching, Pain began gradually, Is continuous. Neuro: Level of Consciousness is awake, alert, obeys commands, Oriented to person, place, time, situation. Cardiovascular: Capillary refill < 3 seconds Patient's skin is warm and dry. Respiratory: Airway is patent Respiratory effort is even, unlabored, Respiratory pattern is regular, symmetrical. GI: Abdomen is round Reports diarrhea, nausea, vomiting. : Reports pain in bilateral flank(s). EENT: No signs and/or symptoms were reported regarding the EENT system. Derm: No signs and/or symptoms reported regarding the dermatologic system. Musculoskeletal: Capillary refill < 3 seconds. 20:19 Reassessment: Patient appears in no apparent distress at this time. Patient is alert, rr5 oriented x 3, equal unlabored respirations, skin warm/dry/pink. Patient states symptoms have improved. 21:30 Reassessment: Patient appears in no apparent distress at this time. Patient is alert, rr5 oriented x 3, equal unlabored respirations, skin warm/dry/pink. provider ordered for ultrasound. 22:33 Reassessment: complaints of pain, ED provider aware with order made and carried out. rr5 GI: Pt is actively vomiting. 22:45 Reassessment: [id number]. ea 23:38 Reassessment: Patient appears in no apparent distress at this time. resting eyes closed rr5 breathing spontaneously at room air. 23:48 Reassessment: Patient appears in no apparent distress at this time. Patient is alert, rr5 oriented x 3, equal unlabored respirations, skin warm/dry/pink. Patient states feeling better. Patient states symptoms have improved. 11/29 00:19 Reassessment: Patient appears in no apparent distress at this time. Patient is alert, rr5 oriented x 3, equal unlabored respirations, skin warm/dry/pink. discharge instruction given and explained without complaints made. family member outside her ride home Patient denies pain at this time. Patient states feeling better. Patient states symptoms have improved. Vital Signs: 11/28 19:01 BP 134 / 82; Pulse 91; Resp 16 S; Temp 97.6(TE); Pulse Ox 100% on R/A; Weight 61.23 kg ca1 (R); Height 5 ft. 2 in. (157.48 cm) (R); Pain 10/10; 20:10 BP 139 / 89; Pulse 95; Resp 17; Pulse Ox 99% ; Pain 8/10; rr5 21:30 BP 126 / 79; Pulse 85; Resp 18; Pulse Ox 100% ; rr5 22:35 BP 131 / 85; Pulse 90; Resp 17; Pulse Ox 98% ; rr5 23:39 BP 120 / 72; Pulse 85; Resp 16; Pulse Ox 98% ; rr5 11/29 00:19 BP 110 / 62; Pulse 80; Resp 16; Pulse Ox 98% ; Pain 0/10; rr5 11/28 19:01 Body Mass Index 24.69 (61.23 kg, 157.48 cm) ca1 ED Course: 11/28 18:44 Patient arrived in ED. mr 19:02 Triage completed. ca1 19:03 Russel Martinez PA is PHCP. [facility] 19:03 Jean Marie Perez MD is Attending Physician. [facility] 19:03 Arm band placed on right wrist. ca1 19:07 Kenny Reilly RN is Primary Nurse. rr5 19:15 Inserted saline lock: 22 gauge in left antecubital area, using aseptic technique. rr5 ,using aseptic technique. [facility] Blood collected. 19:59 CT Stone Protocol In Process Unspecified. EDMS 21:30 US Transvaginal Study (Probe) In Process Unspecified. EDMS 22:27 Patient has correct armband on for positive identification. Placed in gown. Bed in low ea position. Call light in reach. Side rails up X2. Pulse ox on. NIBP on. 11/29 00:20 No provider procedures requiring assistance completed. IV discontinued, intact, rr5 bleeding controlled, No redness/swelling at site. Pressure dressing applied. Administered Medications: 11/28 19:15 Drug: NS 0.9% 1000 ml Route: IV; Rate: 1 bolus; Site: left antecubital; rr5 20:15 Follow up: Response: No adverse reaction; IV Status: Completed infusion; IV Intake: rr5 1000ml 19:15 Drug: Zofran (Ondansetron) 4 mg Route: IVP; Site: left antecubital; rr5 20:15 Follow up: Response: No adverse reaction rr5 19:17 Drug: morphine 4 mg {Note: rass 0.} Route: IVP; Site: left antecubital; rr5 20:15 Follow up: Response: No adverse reaction; Pain is unchanged, physician notified; RASS: rr5 Alert and Calm (0) 21:06 Drug: morphine 4 mg Route: IVP; Site: right antecubital; ea 22:00 Follow up: Response: No adverse reaction; Pain is unchanged, physician notified; RASS: rr5 Alert and Calm (0) 22:45 Not Given (different med given): Zofran (Ondansetron) 4 mg IVP once; over 2 minutes [facility] 22:50 Drug: Reglan (metoCLOPramide) 10 mg Route: IVP; Site: left antecubital; rr5 11/29 00:20 Follow up: Response: No adverse reaction; Marked relief of symptoms rr5 11/28 22:52 Drug: Benadryl (diphenhydrAMINE) 12.5 mg Route: IVP; Site: left antecubital; rr5 11/29 00:20 Follow up: Response: No adverse reaction; Marked relief of symptoms rr5 11/28 22:54 Drug: Ativan (LORazepam) 1 mg Route: IVP; Site: left antecubital; rr5 11/29 00:21 Follow up: Response: No adverse reaction; Marked relief of symptoms rr5 11/28 22:56 Drug: Dilaudid (HYDROmorphone) 0.5 mg {Note: rass 0.} Route: IVP; Site: left rr5 antecubital; 11/29 00:21 Follow up: Response: No adverse reaction; Marked relief of symptoms; RASS: Alert and rr5 Calm (0) 11/28 22:58 Drug: Rocephin (cefTRIAXone) 1 grams Route: IV; Rate: calculated rate; Site: left rr5 antecubital; 11/29 00:21 Follow up: Response: No adverse reaction; Marked relief of symptoms; IV Status: rr5 Completed infusion; IV Intake: 10ml Intake: 11/28 20:15 IV: 1000ml; Total: 1000ml. rr5 11/29 00:21 IV: 10ml; Total: 1010ml. rr5 Outcome: 11/28 23:46 Discharge ordered by MD. lamar 11/29 00:20 Discharged to home ambulatory. rr5 Condition: stable Discharge instructions given to patient, Instructed on discharge instructions, follow up and referral plans. medication usage, Demonstrated understanding of instructions, follow-up care, medications, Prescriptions given X 2. 00:24 Patient left the ED. rr5 Addendum: 12/02/2020 15:19 Addendum: Culture Results: Positive urine culture. Patient was not prescribed a a5 antibiotics at discharge. Report given to [facility] for further evaluation and then to phlebotomist associate for follow up with patient. Phone call Attempt #1 unable to leave voice mail due to voice mail being full. Signatures: Dispatcher [employer] EDMS Russel Martinez PA PA jmm EzioAlicia mr Chirinos, Maria Guadalupe, RN RN aa5 Ludy Mathew RN Kenny Vital ea, RN RN rr5 Nathalie Pedraza RN RN ca1
[2020-11-28 23:48] LABS: Urine Bacteria LOADED /HPF (<20); Urine RBC <5 /HPF (NONE SEEN); Urine Urothelial Cells <5 /HPF (NONE SEEN)
[2020-11-29 00:57] VITALS: TEMP 97.6
[2020-11-29 01:01] VITALS: O2SAT 98
[2020-11-29 01:05] VITALS: BP 110/62
--- NOTE | 2020-11-29 10:27 | RAD REPORT ---
EXAM DESCRIPTION: US - Transvaginal Study Probe - 11/28/2020 9:30 pm CLINICAL HISTORY: 40 years, Female, pelvic pain, vomiting COMPARISON: None. TECHNIQUE: Utilizing a transvaginal transducer, real-time ultrasound evaluation of the female pelvis was performed. Color Doppler imaging was used to assess vascular flow. FINDINGS: The uterus measures 8.9 x 3.6 x 4.6 cm. The endometrial stripe demonstrate to be normal and measure 11.3 mm, no significant focal masses are identified within the uterus. There is a most li jenny nabothian cyst measuring 1.1 x 0.6 cm. The right ovary measured 6.2 x 4.5 x 4.8 cm, there is a right ovarian cyst measuring 5.2 x 3.3 x 4.3 cm. The left ovary measures 6.6 x 3.3 x 3.5 cm there is a left ovarian cyst measuring 3.4 x 3.4 x 3.9 cm and an adjacent cyst measuring 2.9 x 3.0 x 3.2 cm. There is normal vascular flow and spectral wav eforms with no evidence for torsion. No free fluid was identified in the posterior cul-de-sac, no adnexal masses seen. IMPRESSION: MILDLY THICKENED ENDOMETRIAL STRIPE PERHAPS INGESTING IMMINENT MENSTRUATION. MULTIPLE OVARIAN CYSTS. MOST SEVERE: 5.2 CM SIMPLE OVARIAN CYST. RECOMMEND FOLLOW-UP PELVIC US ANNUAL LY. REFERENCE: RADIOLOGY 2009; 256 (3): 943-54. Electronically signed by: Papito Bales MD 11/28/2020 10:02 PM CDT Due to temporary technical issues with the PACS/Fluency reporting system, reports are being signed by the in house radiologist without review as a courtesy to ensure prompt reporting. The interpreting r adiologist is fully responsible for the content of the report.
== END 2020-11-29 00:24 | disposition home or self-care (01) ==
LOC: ER 18:41
DX: R11.2 Nausea with vomiting, unspecified (principal); F17.210 Nicotine dependence, cigarettes, uncomplicated; Z87.442 Personal history of urinary calculi
CPT/HCPCS: 87088; 85025; 87086; 80048; 36415; 81025; 80076; 83690; 76377; 74176; 76830; J2765; J1200; J1170; J0696; J7030 ×2; J2405; 81003; 81015; 87077; 87186; 99284

== ENCOUNTER 2021-03-21 19:27 | Emergency (ER) | payer OTHER ==
--- OUTSIDE RECORDS SUMMARY | 2021-03-21 19:30 | XMS REPORT | Continuity of Care Document ---
:1980 Author Organization [facility] t Address [address] [place] [address] Care Team Providers Name Role Phone Jose Angel Bear MD Attending Clinician Doctor Unassigned, Name Attending Clinician Unavailable DEBRA ENG Attending Clinician Unavailable ELIDA Attending Clinician Unavailable ABDULLAHI CERDA Admitting Clinician Unavailable Problems Condition Condition Condition Status Onset Resolution Last Treating Co mments Source Name Details Category Date Date Treatment Clinician Date RANJANA (acute RANJANA (acute Disease Active 2018-[address] kidney kidney 09-23 [facility] 00 [place] Left Left Disease Active [address] [facility] ureteral ureteral 09-23 [facility] stone stone 00:00: [facility] 00 [place] Renal Renal Disease Active 2018-[address] [facility] [address] calculus, calculus, 09-23 [facility] - bilateral bilateral 00:00: [facility] aleksey 00 [place] Leukocytos Leukocytos Disease Active [address] is is 09-23 [facility] - 00:[facility]: [facility] 00 [place] Hyponatrem Hyponatrem Disease Active 2019- [facility] ia ia 2 [facility] - 00:[facility]: [facility] 00 [place] Sepsis Sepsis Disease Active 2019- [facility] 09[facility]22 [facility] [place] Obstructiv Obstructiv Disease Active 2019- [facility] e uropathy e uropathy 09-22 [facility] - 00:00: [facility] 00 [place] Allergies, Adverse Reactions, Alerts This patient has no known allergies or adverse reactions. Social History Social Habit Start Date Stop Date Quantity Comments Source Sex Assigned At [facility] History of tobacco Cigarette [facility] History SDOH [facility] Std Drinks [facility] History SDOH [facility] - Alcohol Binge Medical [address] [facility] Tobacco use and 2019-08-05 2019-08-[address] [facility] - exposure 00:00:00 00:00:00 [facility] Center Alcohol intake 2019-08-05 2019-08-05 [facility] Center (finding) Tobacco Comment 2019-07-25 2019-07-25 since [address] [facility] - 00:00:00 00:00:00 Medical Center History SDOH 2019-07-25 2019-07-[address] [facility] - Alcohol Frequency 00:00:00 00:00:00 [facility] Center Smoking Status Start Date Stop Date Source Former smoker 2019-08-05 00:00:00 2019-08-05 00:00:00 [facility] Medications Ordered Filled Start Stop Current Ordering Indication Dosage Frequency Signature Comments Components Source Medication Medication Date Date Medication? Clinician (SIG) Name Name ranitidine 2018-08 Yes 150mg Take [address] (ZANTAC) 2-09 mg by [facility] - 150 MG 19:54: mouth 2 Medical tablet 17 (two) Center times daily as needed for Heartburn. acetaminoph 2018-08- No 650mg Take [address] en 09-26 tablets [facility] - (TYLENOL) 00:00: 23:59 (650 mg Medi aleksey 325 MG 00 :00 total) by Center tablet mouth every 4 (four) hours for 360 days. Procedures This patient has no known procedures. Plan of Care Planned Activity Planned Date Details Comments Source Future Scheduled 2020-04-[address] [facility] - Test 00:00:00 (#1) [code = Medical Center INFLUENZA VACCINE (#1)] Future Scheduled [address] [facility] - Test 00:00:00 malignant neoplasm Medical C enter of cervix (procedure) [code = 252060251] Encounters Start End Encounter Admission Attending Care Care Encounter Source Date/Time Date/Time Type Type Clinicians Facility Department ID 2021-02-09 2021-02-09 [facility] [id number] 10:08:01 13:21:25 Visit Sandy George [id number] [place] [id number] [id number] [address] 2021-02-09 2021-02-09 Orders Doctor MELANY [id number] 00:00:00 00:00:00 Only Unassigned, MARCELINA [id number] [place] [facility] [id number] Results Test Test Test Comments Results Result Source Description Time Comments CT, CHEST WITH 2019-07- Reason for FINAL REPORT PATIENT ID: IV CONTRAST- PE 20 exam:->BACK [id number] TECHNIQUE: CT TEST DESIGN 06:01:00 PAINReason for [...] for FINAL REPORT PATIENT ID: 20 exam:->post [id number] EXAM: CT of the 04:08:00 ureteral abdomen [...] ureteral stone.No hydroureteronephrosis or perinephric stranding. Signed: Ricky Schaffer MDReport Verified Date/Time: 08/06/2019 04:08:20 D-DIMER [...] within 95-100% range.RAD, CHEST, 1 VIEW, NON [id number] 03:24:00Reason for exam:->BACK PAINReason for exam:->SHORTNESS OF [...] MDReport Verified Date/Time: 08/06/2019 03:24:23 PREGNANCY SCREEN, [id number] 21:20:00 Test Item Value Reference Range Interpretation Comments TEST URINE (BEAKER) (test Negative code = 583) URINALYSIS W/ REFLEX URINE [id number] 21:19:00 Test Item Value Reference Range Interpretation [...] code = 516) SOURCE(BEAKER) (test code = 2795) BASIC METABOLIC [id number] 21:18:00 Test Item Value Reference Range Interpretation [...] ESTIMATED GFR. CBC W/PLT COUNT & AUTO [id number] 21:07:00 Test Item Value Reference Range Interpretation [...] PERCENT (BEAKER) (test code = 2801) BLOOD [id number] 00:00:00 Test Item Value Reference Range Interpretation Comments CULTURE (BEAKER) (test No growth in 5 days code = 1095) BLOOD [id number] 00:00:00 Test Item Value Reference Range Interpretation Comments CULTURE (BEAKER) (test No growth in 5 days code = 1095) SCREEN, [id number] 07:02:00 Test Item Value Reference Range Interpretation Comments TEST URINE (BEAKER) (test Negative code = 583) BASIC METABOLIC [id number] 03:43:00 Test Item Value Reference Range Interpretation [...] ESTIMATED GFR. CBC W/PLT COUNT & AUTO [id number] 02:58:00 Test Item Value Reference Range Interpretation [...] (BEAKER) (test code = 2801) BASIC METABOLIC [id number] 06:50:00 Test Item Value Reference Range Interpretation [...] ESTIMATED GFR. CBC W/PLT COUNT & AUTO [id number] 04:00:00 Test Item Value Reference Range Interpretation [...] (BEAKER) (test code = 2801) U/S, RENAL, [id number] 02:21:00Reason for exam:->akiFINAL REPORT Renal ultrasound dated [...] Date/Time: 07/24/2019 02:21:25 RAD, ABDOMEN/KUB, 1 VIEW [id number] 01:26:00Reason for exam:->stent positioningShould this be performed [...] 07/24/2019 01:26:46 CBC W/PLT COUNT & AUTO [id number] 06:40:00 Test Item Value Reference Range Interpretation [...] (BEAKER) (test code = 2801) BASIC METABOLIC [id number] 06:32:00 Test Item Value Reference Range Interpretation [...] GFR. FL, FLUORO, NON-SPECIFIC, UP TO 1 [id number] 02:47:00Reason for exam:- >left ureteral stent placementFINAL REPORT Examination: Retrograde pyelography 75 fluoroscopic spot views were obtained during the procedure by the ordering service. Images are nondiagnostic as no radiologist was present at the time of imaging. Fluoroscopic time was not provided. Please see the procedurereport for details. Signed: Apolinar Beltran MDReport Verified Date/Time: 07/23/2019 02:47:24 LACTIC ACID, [id number] 02:22:00 Test Item Value Reference Range Interpretation Comments LACTATE BLOOD VENOUS (2) (BEAKER) 1.0 mmol/L 0.5-2.2 (test code = 2872) LACTIC ACID, [id number] 23:42:00 Test Item Value Reference Range Interpretation Comments LACTATE BLOOD VENOUS (2) (BEAKER) 0.5 mmol/L 0.5-2.2 (test code = 2872) [id number] 22:29:00 Test Item Value Reference Range Interpretation Comments PROCALCITONIN (BEAKER) (test code 0.11 ng/mL <0.05 H = 3036) SEPSIS RISK (ng/mL)Low: 0.05-0.50Intermediate: 0.51-2.00High: >=2.01TROPONIN [id number] 22:25:00 Test Item Value Reference Range Interpretation [...] acute neurological disease, and persistent tachyarrhythmia.BASIC METABOLIC [id number] 22:23:00 Test Item Value Reference Range Interpretation [...] 1092) DATA TO CALCULA TE ESTIMATED GFR. [id number] 22:19:00 Test Item Value Reference Range Interpretation Comments MAGNESIUM (BEAKER) 1.9 mg/dL 1.6-2.6 Specimen slightly (test code = 627) hemolyzed URIC [id number] 22:19:00 Test Item Value Reference Range Interpretation Comments URIC ACID (BEAKER) 5.0 mg/dL 2.6-7.2 Specimen slightly (test code = 773) hemolyzed HEPATIC FUNCTION [id number] 22:19:00 Test Item Value Reference Range Interpretation [...] Specimen slightly (test code = 347) hemolyzed [id number] 22:19:00 Test Item Value Reference Range Interpretation Comments LIPASE (BEAKER) (test code = 749) 5 U/L 8-78 L LACTIC ACID, [id number] 22:15:00 Test Item Value Reference Range Interpretation Comments LACTATE BLOOD VENOUS (2) (BEAKER) 0.8 mmol/L 0.5-2.2 (test code = 2872) CBC W/PLT COUNT & AUTO [id number] 22:05:00 Test Item Value Reference Range Interpretation [...] (BEAKER) (test code = 2801) CREATININE, RANDOM [id number] 22:01:00 Test Item Value Reference Range Interpretation Comments CREATININE URINE (BEAKER) (test 99.2 mg/dL code = 375) Reference Range: No NormalsSODIUM, RANDOM [id number] 22:01:00 Test Item Value Reference Range Interpretation Comments SODIUM URINE (BEAKER) (test code = 85 meq/L 243) Reference Range: No NormalsURINALYSIS WITH MICROSCOPIC IF [id number] 21:59:00 Test Item Value Reference Range Interpretation [...] 463) SOURCE(BEAKER) (test code = 2795) URINALYSIS [id number] 21:59:00 Test Item Value Reference Range Interpretation Comments RBC UA (BEAKER) (test code = 519) 7 /HPF WBC UA (BEAKER) (test code = 520) 13 /HPF SQUAMOUS EPITHELIAL (BEAKER) (test 1 /HPF code = 516) YEAST (BEAKER) (test code = 1585) Rare SCREEN, [id number] 21:56:00 Test Item Value Reference Range Interpretation Comments TEST URINE (BEAKER) (test Negative code = 583)
--- NOTE | 2021-03-21 21:40 | RAD REPORT ---
EXAM DESCRIPTION: RAD - Chest Single View - 03/21/2021 9:01 pm CLINICAL HISTORY: Chest pain;Cough COMPARISON: ABDOMEN ACUTE SERIES dated 10/01/2007 FINDINGS: No evidence of edema or pneumonia. The heart size is within normal limits.No acute osseous abnormality. No significant pleural effusions or pneumothorax. IMPRESSION: No acute cardiopulmonary disease.
[2021-03-21 21:42] LABS: Urine Blood 1+ (Negative); Urine Glucose Negative (Negative); Urine Protein 2+ (Negative); Urine Specific Gravity >=1.030 (1.005-1.030)
[2021-03-21 22:24] LABS: Absolute Lymphocytes (CBC) 1.3 K/uL (0.7-4.9); Basophils % 0.3 % (0-1.3); Lymphocytes % 23.2 % (15.3-44.8); MPV 7.7 fL (7.6-11.3); RBC Red Blood Cell Count 4.98 M/uL (3.86-4.86)
[2021-03-21 22:25] LABS: Urine Appearance CLEAR (Clear); Urine Blood TRACE (Negative); Urine Color YELLOW (Yellow); Urine Glucose NEGATIVE (Negative); Urine Protein 2+ (Negative); Urine Specific Gravity >=1.030 (1.005-1.030); Urine Urobilinogen 0.2 mg/dL (0.2-1.0)
[2021-03-21 22:30] LABS: Urine Microscopic Reflex ORDER UMIC
[2021-03-21 22:35] LABS: Potassium 3.5 mmol/L (3.5-5.1)
[2021-03-21 22:39] LABS: Urine Bilirubin NEGATIVE (Negative)
[2021-03-21] MEDS ORDERED: NA CHLORIDE 0.9% 1,000 ML ONE (22:40)
[2021-03-21] MEDS ORDERED: ONDANSETRON 4 MG/2 ML VIAL ONE (22:40)
[2021-03-21] MEDS ORDERED: ACETAMINOPHEN 325 MG TABLET ONE (22:40)
[2021-03-21] MEDS ORDERED: MORPHINE 4 MG/ML SYR ONE (23:08)
[2021-03-21] MEDS ORDERED: PROMETHAZINE INJ 25 MG/ML AMP ONE (23:09)
[2021-03-21] MEDS ORDERED: NA CHLORIDE 0.9% 50 ML ONE (23:09)
--- NOTE | 2021-03-21 23:10 | ER ---
Nurse's Notes [facility] Name: Joyce Duran Age: 40 yrs Sex: Female : 1980 Arrival Date: 03/21/2021 Time: 19:29 Bed 10 Private MD: Diagnosis: Positive Covid 19. Upper respiratory infection Presentation: 03/21 20:05 Chief complaint: Patient states: was exposed to COVID 2 days ago, has been having diff iw breathing and chest heaviness, head feels foggy, hard to think straight, no fever. Coronavirus screen: Client presents with at least one sign or symptom that may indicate coronavirus-19. Ebola Screen: Patient negative for fever greater than or equal to 101.5 degrees Fahrenheit, and additional compatible Ebola Virus Disease symptoms Patient denies exposure to infectious person. Patient denies travel to an Ebola-affected area in the 21 days before illness onset. No symptoms or risks identified at this time. Initial Sepsis Screen: Does the patient meet any 2 criteria? No. Patient's initial sepsis screen is negative. Does the patient have a suspected source of infection? No. Patient's initial sepsis screen is negative. Risk Assessment: Do you want to hurt yourself or someone else? Patient reports no desire to harm self or others. Onset of symptoms was March 19, 2021. 20:05 Method Of Arrival: Ambulatory iw 20:05 Acuity: PALLAVI 3 iw Triage Assessment: 23:23 General: Appears in no apparent distress. Pain: Complains of pain in abdomen. ms4 Respiratory: Onset: The symptoms/episode began/occurred. Respiratory: the patient has moderate shortness of breath. 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 - Social history:: Smoking status: Patient reports the use of cigarette tobacco products, denies chronic smoking, but will smoke occasionally. Screenin:29 Abuse screen: Denies threats or abuse. Denies injuries from another. Nutritional ms4 screening: No deficits noted. Tuberculosis screening: No symptoms or risk factors identified. Fall Risk None identified. Assessment: 21:05 Reassessment: Patient appears in no apparent distress at this time. Patient and/or iw family updated on plan of care and expected duration. Pain level reassessed. Patient is alert, oriented x 3, equal unlabored respirations, skin warm/dry/pink. 22:26 General: Appears uncomfortable, Behavior is calm, cooperative. Pain: Complains of pain ms4 in abdomen. Neuro: No deficits noted. Cardiovascular: No deficits noted. Respiratory: Reports shortness of breath cough that is. GI: Reports nausea, vomiting. 22:27 Cardiovascular: Rhythm is regular. Respiratory: Airway is patent Respiratory effort is ms4 even, unlabored, Breath sounds are clear bilaterally. Vital Signs: 20:05 BP 132 / 102; Pulse 115; Resp 18; Temp 97.2; Pulse Ox 99% on R/A; Weight 61.23 kg; iw Height 5 ft. 3 in. (160.02 cm); 21:05 Pulse 98; Pulse Ox 100% ; iw 22:28 BP 121 / 96; Pulse 100; Resp 18; Pulse Ox 98% ; Pain 2/10; ms4 23:04 BP 131 / 89; Pulse 116; Resp 22; Pulse Ox 98% ; Pain 8/10; ms4 23:24 Pain 4/10; ms4 20:05 Body Mass Index 23.91 (61.23 kg, 160.02 cm) iw ED Course: 19:29 Patient arrived in ED. wm 20:07 Triage completed. iw 21:01 CXR XRAY In Process Unspecified. EDMS 21:08 Chi Hinkle MD is Attending Physician. pkl 22:24 Shirley Alex RN is Primary Nurse. ms4 22:25 CBC with Diff Sent. ms4 22:28 Inserted saline lock: 22 gauge in left antecubital area, using aseptic technique. ms4 22:29 Patient has correct armband on for positive identification. ms4 23:20 IV discontinued, intact, bleeding controlled, No redness/swelling at site. ld1 23:23 No provider procedures requiring assistance completed. ms4 23:23 Antipyretic given from triage as ordered by the ER provider. Arm band placed on. ms4 Administered Medications: 22:25 Drug: Tylenol 650 mg Route: PO; ms4 23:25 Follow up: Response: No adverse reaction ms4 22:26 Drug: Zofran (Ondansetron) 4 mg Route: IVP; Site: left antecubital; ms4 23:28 Follow up: Response: No adverse reaction ms4 22:26 Drug: NS 0.9% 1000 ml Route: IV; Rate: 1 bolus; Site: left antecubital; ms4 23:24 Follow up: Response: No adverse reaction; IV Status: Completed infusion; IV Intake: ms4 1000ml 23:03 Drug: Promethazine 12.5 mg Route: IVP; Site: left antecubital; ms4 23:24 Follow up: Response: No adverse reaction ms4 23:25 Follow up: Response: No adverse reaction ms4 23:25 Follow up: Response: No adverse reaction ms4 23:03 Drug: morphine 4 mg Route: IVP; Site: left antecubital; ms4 23:24 Follow up: Response: No adverse reaction ms4 23:25 Follow up: Response: No adverse reaction ms4 23:27 Follow up: Response: No adverse reaction ms4 Intake: 23:24 IV: 1000ml; Total: 1000ml. ms4 Outcome: 23:09 Discharge ordered by . remy 23:20 Discharged to home ambulatory. ld1 23:20 Condition: stable 23:20 Discharge instructions given to patient, Instructed on discharge instructions, follow up and referral plans. medication usage, Demonstrated understanding of instructions, follow-up care, medications, Prescriptions given X 1. 23:21 Patient left the ED. ld1 Signatures: Dispatcher [employer] EDMS Chi Hinkle MD MD pkl Williams, Irene, RN RN iw Ida Newton RN RN ld1 Jenniffer Barrientos Mikaela, RN RN ms4 Corrections: (The following items were deleted from the chart) 20:08 20:05 Pulse 115bpm; Resp 18bpm; Pulse Ox 99% RA; Temp 97.2F; 61.23 kg; Height 5 ft. 3 iw in.; BMI: 23.9; iw 23:23 20:07 PMHx: Kidney stones; iw ms4
--- NOTE | 2021-03-21 23:10 | EDPHYS ---
Physician Documentation [facility] Name: Joyce Duran Age: 40 yrs Sex: Female : 1980 Arrival Date: 03/21/2021 Time: 19:29 Bed 10 Private MD: ED Physician Chi Hinkle HPI: 03/21 21:27 This 40 yrs old Female presents to ER via Ambulatory with complaints of pkl Breathing Difficulty, EXPOSURE TO + COVID. 21:27 The patient or guardian reports cough, described as mild, with no sputum, flu symptoms, pkl myalgias. Onset: The symptoms/episode began/occurred 3 day(s) ago. Associated signs and symptoms: Pertinent positives: headache, shortness of breath. Patient exposed to Co-worker with positive Covid 19 last week. 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 - Social history:: Smoking status: Patient reports the use of cigarette tobacco products, denies chronic smoking, but will smoke occasionally. ROS: 21:31 Eyes: Negative for injury, pain, redness, and discharge, ENT: Negative for injury, pkl pain, and discharge, Neck: Negative for injury, pain, and swelling, Cardiovascular: Negative for chest pain, palpitations, and edema. 21:31 Respiratory: Positive for cough, with no reported sputum, shortness of breath. 21:31 Abdomen/GI: Negative for nausea. 21:31 Back: Negative for acute changes. 21:31 : Negative for urinary symptoms. 21:31 MS/extremity: Negative for acute changes. 21:31 Skin: Negative for rash. 21:31 Neuro: Negative for headache. Exam: 21:31 Head/Face: Normocephalic, atraumatic. Eyes: Pupils equal round and reactive to light, pkl extra-ocular motions intact. Lids and lashes normal. Conjunctiva and sclera are non-icteric and not injected. Cornea within normal limits. Periorbital areas with no swelling, redness, or edema. ENT: Nares patent. No nasal discharge, no septal abnormalities noted. Tympanic membranes are normal and external auditory canals are clear. Oropharynx with no redness, swelling, or masses, exudates, or evidence of obstruction, uvula midline. Mucous membranes moist. Neck: Trachea midline, no thyromegaly or masses palpated, and no cervical lymphadenopathy. Supple, full range of motion without nuchal rigidity, or vertebral point tenderness. No Meningismus. Chest/axilla: Normal chest wall appearance and motion. Nontender with no deformity. No lesions are appreciated. Cardiovascular: Regular rate and rhythm with a normal S1 and S2. No gallops, murmurs, or rubs. Normal PMI, no JVD. No pulse deficits. Respiratory: Lungs have equal breath sounds bilaterally, clear to auscultation and percussion. No rales, rhonchi or wheezes noted. No increased work of breathing, no retractions or nasal flaring. Abdomen/GI: Soft, non-tender, with normal bowel sounds. No distension or tympany. No guarding or rebound. No evidence of tenderness throughout. Back: No spinal tenderness. No costovertebral tenderness. Full range of motion. Skin: Warm, dry with normal turgor. Normal color with no rashes, no lesions, and no evidence of cellulitis. MS/ Extremity: Pulses equal, no cyanosis. Neurovascular intact. Full, normal range of motion. Neuro: Awake and alert, GCS 15, oriented to person, place, time, and situation. Cranial nerves II-XII grossly intact. Motor strength 5/5 in all extremities. Sensory grossly intact. Cerebellar exam normal. Normal gait. Vital Signs: 20:05 BP 132 / 102; Pulse 115; Resp 18; Temp 97.2; Pulse Ox 99% on R/A; Weight 61.23 kg; iw Height 5 ft. 3 in. (160.02 cm); 21:05 Pulse 98; Pulse Ox 100% ; iw 22:28 BP 121 / 96; Pulse 100; Resp 18; Pulse Ox 98% ; Pain 2/10; ms4 23:04 BP 131 / 89; Pulse 116; Resp 22; Pulse Ox 98% ; Pain 8/10; ms4 23:24 Pain 4/10; ms4 20:05 Body Mass Index 23.91 (61.23 kg, 160.02 cm) iw MDM: 21:08 Patient medically screened. pkl 23:05 Data reviewed: vital signs, nurses notes, lab test result(s), radiologic studies, plain pkl films. ED course: Discussed lab and X' rays result with patient. Advised to follow up with PCP next week. To quarantine for 10 days. Patient understood instructions. 03/21 21:24 Order name: CBC with Diff pkl 03/21 21:24 Order name: Chem 7; Complete Time: 22:42 pkl 03/21 21:24 Order name: Lactate; Complete Time: 22:42 pkl 03/21 21:24 Order name: Strep; Complete Time: 22:42 pkl 03/21 21:25 Order name: CBC with Automated Diff; Complete Time: 22:32 EDMS 03/21 20:09 Order name: CXR XRAY; Complete Time: 22:32 iw 03/21 21:30 Order name: D-Dimer; Complete Time: 22:43 pkl 03/21 21:33 Order name: UA pkl 03/21 21:33 Order name: SARS-COV-2 RT PCR; Complete Time: 22:32 EDMS 03/21 21:42 Order name: Urine Dipstick-Ancillary; Complete Time: 22:32 EDMS 03/21 22:35 Order name: Throat Culture EDMS 03/21 22:39 Order name: Urine Microscopic Only EDMS 03/21 22:39 Order name: Urine Dipstick-Ancillary (obtain specimen); Complete Time: 22:40 mw2 Administered Medications: 22:25 Drug: Tylenol 650 mg Route: PO; ms4 23:25 Follow up: Response: No adverse reaction ms4 22:26 Drug: Zofran (Ondansetron) 4 mg Route: IVP; Site: left antecubital; ms4 23:28 Follow up: Response: No adverse reaction ms4 22:26 Drug: NS 0.9% 1000 ml Route: IV; Rate: 1 bolus; Site: left antecubital; ms4 23:24 Follow up: Response: No adverse reaction; IV Status: Completed infusion; IV Intake: ms4 1000ml 23:03 Drug: Promethazine 12.5 mg Route: IVP; Site: left antecubital; ms4 23:24 Follow up: Response: No adverse reaction ms4 23:25 Follow up: Response: No adverse reaction ms4 23:25 Follow up: Response: No adverse reaction ms4 23:03 Drug: morphine 4 mg Route: IVP; Site: left antecubital; ms4 23:24 Follow up: Response: No adverse reaction ms4 23:25 Follow up: Response: No adverse reaction ms4 23:27 Follow up: Response: No adverse reaction ms4 Disposition Summary: 03/21/21 23:09 Discharge Ordered Location: Home pkl Problem: new pkl Symptoms: have improved pkl Condition: Stable pkl Diagnosis - Positive Covid 19. Upper respiratory infection pkl Followup: pkl - With: Private Physician - When: 2 - 3 days - Reason: Re-evaluation by your physician Discharge Instructions: - Discharge Summary Sheet pkl Forms: - Medication Reconciliation Form pkl - Thank You Letter pkl - Antibiotic Education pkl - Prescription Opioid Use pkl Prescriptions: - Zofran 4 mg Oral Tablet - take 1 tablet by ORAL route every 12 hours As needed; 12 tablet; Refills: 0, pkl Product Selection Permitted Signatures: Dispatcher [employer] EDChi Nunez MD MD pkl Kelly Shin RN RN Jaime Bledsoe 2 Shirley Alex RN RN ms4 Corrections: (The following items were deleted from the chart) 20:34 20:10 CORONAVIRUS+MR.LAB.BRZ ordered. EDCO EDMS 23:23 20:07 PMHx: Kidney stones; ms4
[2021-03-21 23:24] LABS: Urine Bacteria <20 /HPF (<20); Urine RBC <5 /HPF (NONE SEEN); Urine Urothelial Cells <5 /HPF (NONE SEEN)
[2021-03-22 01:17] VITALS: TEMP 97.2
[2021-03-22 01:21] VITALS: O2SAT 98
[2021-03-22 01:22] VITALS: BP 131/89
== END 2021-03-21 23:21 | disposition home or self-care (01) ==
LOC: ER 19:27
DX: U07.1 COVID-19 (principal); J06.9 Acute upper respiratory infection, unspecified; F17.210 Nicotine dependence, cigarettes, uncomplicated
CPT/HCPCS: 96361; 87070; 85025; 80048; 36415; 85379; 87081; 83605; 71045; 96375; 96374; 99284; U0003; J2550; J7030; J2405; 81003; 81015

== ENCOUNTER 2021-12-28 19:31 | Inpatient (IN) | payer OTHER ==
--- OUTSIDE RECORDS SUMMARY | 2021-12-28 19:36 | XMS REPORT | Continuity of Care Document ---
:1980 Author Organization [facility] t Address [address] [place] [address] Care Team Providers Name Role Phone Pcp, Does Not Have A Primary Care Physician Jose Angel Bear MD Attending Clinician Doctor Unassigned, Name Attending Clinician Unavailable DEBRA ENG Attending Clinician Unavailable ELIDA Attending Clinician Unavailable ABDULLAHI CERDA Admitting Clinician Unavailable Payers Payer Name Policy Type Policy Number Effective Date Expiration Date S ource Problems Condition Condition Condition Status Onset Resolution Last Treating Co mments Source Name Details Category Date Date Treatment Clinician Date Pelvic Pelvic Disease Active Univers pain pain 2-03 ity of 00:00: Medical Branch Adnexal Adnexal Disease Active Overview: Univ ers mass mass 1-24 Formattin ity of 00:00: g of this note Medical might be Branch different from the original. Added automatic ally from request for surgery [id number] Obesity Obesity Disease Active Univers (BMI (BMI 1-21 ity of 30-39.9) 30-39.9) 00:00: Medical Branch Cysts of Cysts of Disease Active Unive rs both both 6-25 ity of ovaries ovaries 00:00: Medical Branch Irritable Irritable Disease Active Uni vers bowel bowel 6-23 ity of syndrome syndrome 00:00: [place] with with 00 Medical constipati constipati Br anch on on Ureteral Ureteral Disease Active Overview: Un sol calculus calculus 1-14 Formattin ity of 00:00: g of this [place] 00 note Medical might be Branch different from the original. Added automatic ally from request for surgery [id number] Calculus Calculus Disease Active Overview: Un sol of kidney of kidney 1-14 Formattin i ty of 00:00: g of this [place] 00 note Medical might be Branch different from the original. Added automatic ally from request for surgery [id number] Ureteral Ureteral Disease Active Overview: Un sol stent stent -14 Formattin ity of retained retained 00:00: g of this [place] as 00 note Medical might be Branch different from the original. Added automatic ally from request for surgery [id number] RANJANA (acute RANJANA (acute Disease Active 2018-08 U nivers kidney kidney 2-06 ity of injury) injury) 00:00: [place] 00 Medical Branch Tobacco Tobacco Disease Active Univers use use 6-17 ity of 00:00: [place] 00 Medical Branch Allergies, Adverse Reactions, Alerts This patient has no known allergies or adverse reactions. Social History Social Habit Start Date Stop Date Quantity Comments Source Exposure to Not sure University of SARS-CoV-2 [place] [facility] (event) Branch History of Cigarette Smoker Universi ty of tobacco use [place] [facility] History SDOH University o f Alcohol Frequency [place] [facility] ed[facility] History SDOH University o f Alcohol Std [place] [facility] Drinks Branch History SDMN University o f Alcohol Binge [place] [facility] Alcohol intake 2021-09-21 2021-09-21 Current drinker Unive rsity of 00:00:00 00:00:00 of alcohol [place] [facility] (finding) Branch Alcohol Comment 2021-01-12 2021-01-12 occasional Universit y of 00:00:00 00:00:00 drinking [facility] Tobacco Comment 2021-01-12 2021-01-12 only social with Uni versity of 00:00:00 00:00:00 drinking [facility] Tobacco use and 2015-01-30 2015-01-30 Never used Universit y of exposure 00:00:00 00:00:00 [facility] Sex Ass[birth year] At [birth year] Universit y of 00:00:00 00:00:00 [facility] Smoking Status Start Date Stop Date Source Current some day smoker 2015-01-30 00:00:00 Univ ersity of [facility] Medications Ordered Filled Start Stop Current Ordering Indication Dosage Frequency Signature Comments Components Source Medication Medication Date Date Medication? Clinician (SIG) Name Name Lactobacill Yes Take by Un sol us 2-18 mouth. ity of acidophilus 09:06: [place] (PROBIOTIC Medical ORAL) Branch traMADoL 50 Yes 50mg Take 50 mg Univers mg tablet 218 by mouth ity of 09:06: every 8 [place] (eight) Medical hours as Branch needed for Pain (scale 4-6). LINZESS 290 Yes Univer s mcg Cap 6-21 ity of 00:00: [facility] famotidine Yes Univers 20 mg 5-09 ity of tablet 00:00: [facility] Vital Signs Vital Name Observation Time Observation Value Comments Source Systolic blood 2021-10-05 15:04:00 122 mm[Hg[facility] Diastolic blood 2021-10-05 15:04:00 84 mm[Hg] Unive rsity [facility] Heart rate 2021-10-05 15:04:00 80 /min [facility] Body temperature 2021-10-05 15:04:00 37.06 [facility] Respiratory rate 2021-10-05 15:04:00 18 /min [facility] Body weight 2021-10-05 15:04:00 75.297 kg [facility] BMI 2021-10-05 15:04:00 30.35 kg/m2 [facility] Procedures This patient has no known procedures. Encounters Start End Encounter Admission Attending Care Care Encounter Source Date/Time Date/Time Type Type Clinicians Facility Department ID 2021-10-05 2021-10-05 Office Ad, [facility] [id number] [facility] 08:30:00 09:51:27 Visit Sandy OLIVER [id number] ity of ABISAI [id number] Maya DIAS [id number] Md dical [address] 2021-02-09 2021-02-09 Office Ad, [facility] [id number] 10:08:01 13:21:25 Visit Sandy Oliver [id number] [place] [id number] Jade [id number] 2021-02-09 2021-02-09 Orders Doctor MELANY [id number] 00:00:00 00:00:00 Only Unassigned, MARCELINA [id number] [place] [facility] [id number] Results Test Test Test Comments Results Result Source Description Time Comments CT, CHEST WITH 2019-07- Reason for FINAL REPORT PATIENT ID: IV CONTRAST- PE 20 exam:->BACK [id number] TECHNIQUE: CT TEST DESIGN 06:01:00 PAINReason for [...] for FINAL REPORT PATIENT ID: 20 exam:->post [id number] EXAM: CT of the 04:08:00 ureteral abdomen [...] within 95-100% range.RAD, CHEST, 1 VIEW, NON [id number] 03:24:00Reason for exam:->BACK PAINReason for exam:->SHORTNESS OF [...] MDReport Verified Date/Time: 08/06/2019 03:24:23 PREGNANCY SCREEN, [id number] 21:20:00 Test Item Value Reference Range Interpretation Comments TEST URINE (BEAKER) (test Negative code = 583) URINALYSIS W/ REFLEX URINE [id number] 21:19:00 Test Item Value Reference Range Interpretation [...] SOURCE(BEAKER) (test code = 2795) BASIC METABOLIC [id number] 21:18:00 Test Item Value Reference Range Interpretation [...] ESTIMATED GFR. CBC W/PLT COUNT & AUTO [id number] 21:07:00 Test Item Value Reference Range Interpretation [...] PERCENT (BEAKER) (test code = 2801) BLOOD [id number] 00:00:00 Test Item Value Reference Range Interpretation Comments CULTURE (BEAKER) (test No growth in 5 days code = 1095) BLOOD [id number] 00:00:00 Test Item Value Reference Range Interpretation Comments CULTURE (BEAKER) (test No growth in 5 days code = 1095) SCREEN, [id number] 07:02:00 Test Item Value Reference Range Interpretation Comments TEST URINE (BEAKER) (test Negative code = 583) BASIC METABOLIC [id number] 03:43:00 Test Item Value Reference Range Interpretation [...] ESTIMATED GFR. CBC W/PLT COUNT & AUTO [id number] 02:58:00 Test Item Value Reference Range Interpretation [...] (BEAKER) (test code = 2801) BASIC METABOLIC [id number] 06:50:00 Test Item Value Reference Range Interpretation [...] ESTIMATED GFR. CBC W/PLT COUNT & AUTO [id number] 04:00:00 Test Item Value Reference Range Interpretation [...] (BEAKER) (test code = 2801) U/S, RENAL, [id number] 02:21:00Reason for exam:->akiFINAL REPORT Renal ultrasound dated [...] Date/Time: 07/24/2019 02:21:25 RAD, ABDOMEN/KUB, 1 VIEW [id number] 01:26:00Reason for exam:->stent positioningShould this be performed at the bedside?->YesFINAL REPORT CLINICAL HISTORY: Stent positioning COMPARISON: None. FINDINGS:2 supine views of the abdomen are submitted. Bilateral ureteral stents appear appropriately positioned. The abdominal bowel gas pattern is normal. There is no evidence of organomegaly or ascites. Thereis no acute bony abnormality. The lung bases are clear. Signed: Apolinar Beltranort Verified Date/Time: 07/24/2019 01:26:46 CBC W/PLT COUNT & AUTO [id number] 06:40:00 Test Item Value Reference Range Interpretation [...] (BEAKER) (test code = 2801) BASIC METABOLIC [id number] 06:32:00 Test Item Value Reference Range Interpretation [...] GFR. FL, FLUORO, NON-SPECIFIC, UP TO 1 [id number] 02:47:00Reason for exam:- >left ureteral stent placementFINAL REPORT Examination: Retrograde pyelography 75 fluoroscopic spot views were obtained during the procedure by the ordering service. Images are nondiagnostic as no radiologist was present at the time of imaging. Fluoroscopic time was not provided. Please see the procedurereport for details. Signed: Apolinar Beltran MDReport Verified Date/Time: 07/23/2019 02:47:24 LACTIC ACID, [id number] 02:22:00 Test Item Value Reference Range Interpretation Comments LACTATE BLOOD VENOUS (2) (BEAKER) 1.0 mmol/L 0.5-2.2 (test code = 2872) LACTIC ACID, [id number] 23:42:00 Test Item Value Reference Range Interpretation Comments LACTATE BLOOD VENOUS (2) (BEAKER) 0.5 mmol/L 0.5-2.2 (test code = 2872) [id number] 22:29:00 Test Item Value Reference Range Interpretation Comments PROCALCITONIN (BEAKER) (test code 0.11 ng/mL <0.05 H = 3036) SEPSIS RISK (ng/mL)Low: 0.05-0.50Intermediate: 0.51-2.00High: >=2.01TROPONIN [id number] 22:25:00 Test Item Value Reference Range Interpretation [...] acute neurological disease, and persistent tachyarrhythmia.BASIC METABOLIC [id number] 22:23:00 Test Item Value Reference Range Interpretation [...] 1092) DATA TO CALCULA TE ESTIMATED GFR. [id number] 22:19:00 Test Item Value Reference Range Interpretation Comments MAGNESIUM (BEAKER) 1.9 mg/dL 1.6-2.6 Specimen slightly (test code = 627) hemolyzed URIC [id number] 22:19:00 Test Item Value Reference Range Interpretation Comments URIC ACID (BEAKER) 5.0 mg/dL 2.6-7.2 Specimen slightly (test code = 773) hemolyzed HEPATIC FUNCTION [id number] 22:19:00 Test Item Value Reference Range Interpretation [...] Specimen slightly (test code = 347) hemolyzed [id number] 22:19:00 Test Item Value Reference Range Interpretation Comments LIPASE (BEAKER) (test code = 749) 5 U/L 8-78 L LACTIC ACID, [id number] 22:15:00 Test Item Value Reference Range Interpretation Comments LACTATE BLOOD VENOUS (2) (BEAKER) 0.8 mmol/L 0.5-2.2 (test code = 2872) CBC W/PLT COUNT & AUTO [id number] 22:05:00 Test Item Value Reference Range Interpretation [...] % 0-1 PERCENT (BEAKER) (test code = 6125) CREATININE, RANDOM [id number] 22:01:00 Test Item Value Reference Range Interpretation Comments CREATININE URINE (BEAKER) (test 99.2 mg/dL code = 375) Reference Range: No NormalsSODIUM, RANDOM [id number] 22:01:00 Test Item Value Reference Range Interpretation Comments SODIUM URINE (BEAKER) (test code = 85 meq/L 243) Reference Range: No NormalsURINALYSIS WITH MICROSCOPIC IF [id number] 21:59:00 Test Item Value Reference Range Interpretation [...] 463) SOURCE(BEAKER) (test code = 2795) URINALYSIS [id number] 21:59:00 Test Item Value Reference Range Interpretation Comments RBC UA (BEAKER) (test code = 519) 7 /HPF WBC UA (BEAKER) (test code = 520) 13 /HPF SQUAMOUS EPITHELIAL (BEAKER) (test 1 /HPF code = 516) YEAST (BEAKER) (test code = 1585) Rare SCREEN, [id number] 21:56:00 Test Item Value Reference Range Interpretation Comments TEST URINE (BEAKER) (test Negative code = 583)
[2021-12-28 20:14] LABS: Urine Blood 2+ (Negative); Urine Glucose Negative (Negative); Urine Protein 3+ (Negative); Urine Specific Gravity 1.025 (1.005-1.030); Urine pH 5.5 (5.0-7.0)
[2021-12-28] MEDS ORDERED: KETOROLAC 30 MG/ML INJ ONE (20:20)
[2021-12-28] MEDS ORDERED: ONDANSETRON 4 MG/2 ML VIAL ONE (20:20)
[2021-12-28] MEDS ORDERED: Ringers Lactate 1,000 ML IV ONE (20:20)
--- NOTE | 2021-12-28 20:47 | RAD REPORT ---
EXAM DESCRIPTION: CT - Stone Protocol - 12/28/2021 8:27 pm CLINICAL HISTORY: Flank pain. bilateral flank pain COMPARISON: Stone Protocol dated 11/28/2020 TECHNIQUE: Axial images were obtained without oral or IV contrast. Lack of contrast limits solid org an and vascular assessment. The [id number] spans the entirety of the system partially obscuring uppermost abdomen and lung bases. Coronal reformatted images were obtained and reviewed. All CT scans are performed using dose optimization technique as appropriate and may include automated exposure control or mA/KV adjustment according to patient size. FINDINGS: The lower lung steinberg are clear. Small hiatal hernia. Imaged portions of the liver and spleen show no suspicious findings on non-contrast imaging. The panc reas and adrenal glands are normal. No pathologic lymphadenopathy in the abdomen or pelvis. Bilateral nephrolithiasis is present without hydronephrosis. No bowel obstruction, free air, free fluid or abscess. Normal appendix noted.6.5 cm right adnexal cys t. No significant bony abnormality. IMPRESSION: Bilateral nephrolithiasis without hydronephrosis. 6.5 cm right adnexal cyst.
[2021-12-28] MEDS ORDERED: KETAMINE HCL 500 MG/5 ML VIAL ONE (21:07)
[2021-12-28] MEDS ORDERED: NA CHLORIDE 0.9% 100 ML IV ONE (21:07)
[2021-12-28 21:25] LABS: Absolute Lymphocytes (CBC) 1.1 K/uL (0.7-4.9); Hematocrit 42.5 % (36.0-45.0); Lymphocytes % 9.7 % (15.3-44.8); RBC Red Blood Cell Count 4.86 M/uL (3.86-4.86)
[2021-12-28 21:27] LABS: Urine Specific Gravity/Preg 1.025 (1.005-1.030)
[2021-12-28 21:34] LABS: Bilirubin Total 0.5 mg/dL (0.2-1.0); Potassium 3.4 mmol/L (3.5-5.1); Protein, Total 9.2 g/dL (6.4-8.2)
[2021-12-28] MEDS ORDERED: PROMETHAZINE INJ 25 MG/ML AMP ONE (22:00)
[2021-12-28] MEDS ORDERED: MORPHINE 4 MG/ML SYR ONE (22:01)
[2021-12-28 22:48] LABS: Urine Bacteria >50 /HPF (<20); Urine Mucus 3+ /HPF (NONE SEEN)
--- NOTE | 2021-12-28 22:56 | EDPHYS ---
Physician Documentation [facility] Name: Joyce Duran Age: 41 yrs Sex: Female : 1980 Arrival Date: 12/28/2021 Time: 19:32 Bed 18 Private MD: ED Physician Yusef Coello HPI: 12/28 20:01 This 41 yrs old Female presents to ER via Unassigned with complaints of Back ms3 Pain, Nausea/Vomiting. 20:01 The patient presents with pain. ms3 20:02 The patient presents with Bilateral flank pain. Onset: The symptoms/episode ms3 began/occurred acutely, last night. The symptoms do not radiate. Associated signs and symptoms: Pertinent positives: nausea and vomiting, Pertinent negatives: fever. The symptoms are described as achy. Modifying factors: The symptoms are alleviated by nothing, the symptoms are aggravated by nothing. Severity of pain: At its worst the pain was severe today, in the emergency department the pain is unchanged. 41-year-old female with past medical history of pyelonephritis and kidney stones presents for bilateral flank pain. Patient states pain is 10/10 and aching. Patient denies alleviating or inciting factors. Patient endorses chills, nausea, vomiting. Patient denies fevers.. 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 - Social history:: Smoking status: Patient denies any tobacco usage or history of. ROS: 20:02 ENT: Negative for injury, pain, and discharge, Neck: Negative for injury, pain, and ms3 swelling, Cardiovascular: Negative for chest pain, and palpitations. Respiratory: Negative for shortness of breath, cough, wheezing, and pleuritic chest pain, Skin: Negative for injury, rash, and discoloration. 20:02 Constitutional: Positive for chills, Negative for fever. 20:02 All other systems are negative. Exam: 20:02 Head/Face: Normocephalic, atraumatic. ENT: Nares patent. No nasal discharge, no ms3 septal abnormalities noted. Tympanic membranes are normal and external auditory canals are clear. Oropharynx with no redness, swelling, or masses, exudates, or evidence of obstruction, uvula midline. Mucous membranes moist. Neck: Trachea midline, no cervical lymphadenopathy. Supple, full range of motion without nuchal rigidity, or vertebral point tenderness. No Meningismus. Chest/axilla: Normal chest wall appearance and motion. Nontender with no deformity. Cardiovascular: Regular rate and rhythm with a normal S1 and S2. No gallops, murmurs, or rubs. Normal PMI, no JVD. No pulse deficits. Respiratory: Lungs have equal breath sounds bilaterally, clear to auscultation and percussion. No rales, rhonchi or wheezes noted. No increased work of breathing, no retractions or nasal flaring. 20:02 Constitutional: The patient appears in obvious pain. 20:02 Abdomen/GI: Inspection: abdomen appears normal, Bowel sounds: normal, Palpation: abdomen is soft and non-tender, No CVA tenderness. 20:02 Back: ROM is normal, CVA tenderness, is absent. Vital Signs: 20:58 BP 125 / 76; Pulse 73; Resp 18; Temp 98.3; Pulse Ox 100% on R/A; Pain 10/10; ian 21:07 BP 144 / 90; Pulse 78; Resp 18; Pulse Ox 100% on R/A; Pain 9/10; ian 22:03 BP 141 / 56; Pulse 76; Resp 16; Pulse Ox 100% on R/A; Pain 4/10; ian 23:23 BP 134 / 65; Pulse 88; Resp 16; Temp 98.5; Pulse Ox 100% on R/A; ian 05/14 00:09 BP 104 / 47; Pulse 68; Resp 18; Pulse Ox 99% on R/A; Pain 6/10; ian 00:50 BP 130 / 76; Pulse 70; Resp 18; Temp 98.3; Pulse Ox 100% on R/A; ian MDM: 12/28 19:59 Patient medically screened. ms3 20:02 Differential diagnosis: Pyelonephritis, Kidney stone vs N/V. ms3 23:09 Data reviewed: vital signs, nurses notes, lab test result(s), radiologic studies. Data ms3 interpreted: Pulse oximetry: on room air is 100 %. Interpretation: normal. Counseling: I had a detailed discussion with the patient and/or guardian regarding: the historical points, exam findings, and any diagnostic results supporting the discharge/admit diagnosis, lab results, radiology results, the need for further work-up and treatment in the hospital. ED course: Discussed case with KEN Manzano, and he accepts patient on behalf of Dr Mauro. All questions answered. Discussed plan with patient and she understands/ agrees with plan. Patient remains in stable condition in the ED.. 12/28 20:01 Order name: CBC with Diff; Complete Time: 21:43 ms3 12/28 20:01 Order name: CMP; Complete Time: 21:43 ms3 12/28 20:14 Order name: Urine Dipstick-Ancillary; Complete Time: 21:00 EDMS 12/28 20:19 Order name: Urine --Ancillary (enter results); Complete Time: 21:43 mw2 12/28 22:20 Order name: Urine Microscopic Only; Complete Time: 22:52 tw5 12/28 22:51 Order name: Urine Culture EDMS 12/28 20:07 Order name: Stone Protocol; Complete Time: 21:00 EDMS 12/28 23:07 Order name: COVID-19 SARS RT PCR (Document "Date of Onset" if Symptomatic); Complete mw2 Time: 05:05 12/28 20:01 Order name: IV Saline Lock; Complete Time: 20:22 ms3 12/28 20:01 Order name: Labs collected and sent; Complete Time: 20:22 ms3 12/28 20:01 Order name: Urine Test (obtain specimen); Complete Time: 20:19 ms3 Administered Medications: 20:21 Drug: Ketorolac 10 mg Route: IVP; Site: left antecubital; ian 21:48 Follow up: Response: No adverse reaction; No change in condition ian 20:22 Drug: Zofran (Ondansetron) 4 mg Route: IVP; Site: left antecubital; ian 21:48 Follow up: Response: No adverse reaction; No change in condition ian 20:22 Drug: Lactated Ringers Solution 1000 ml Route: IV; Rate: 4000 ml/hr; Site: left ian antecubital; 21:06 Drug: Ketamine 10 mg Route: IVP; Site: left antecubital; ian 21:48 Follow up: Response: No adverse reaction; Pain is decreased ian 22:03 Drug: morphine 4 mg Route: IVP; Site: left antecubital; ian 22:11 Follow up: Response: No adverse reaction; Marked relief of symptoms ian 22:03 Drug: Phenergan (promethazine) 12.5 mg Route: IM; Site: left gluteus; ian 22:11 Follow up: Response: No adverse reaction; Marked relief of symptoms ian 12/29 00:37 Drug: Zofran (Ondansetron) 4 mg Route: IVP; Site: left antecubital; ian 00:45 Follow up: Response: No adverse reaction; No change in condition ian 00:45 Drug: ProTONIX (pantoprazole) 40 mg Route: IVP; Site: left antecubital; ian Disposition Summary: 12/28/21 23:09 Hospitalization Ordered Hospitalization Status: Observation ms3 Provider: Bobby Mauro ms3 Location: Telemetry/MedSurg (observation)(12/28/21 23:09) ms3 Condition: Stable(12/28/21 23:09) ms3 Problem: new ms3 Symptoms: are unchanged ms3 Bed/Room Type: Standard ms3 Room Assignment: 205(12/29/21 00:44) cg Diagnosis - elevated creatinine ms3 - Nausea with vomiting, unspecified ms3 - Bilateral flank pain ms3 - Nephrolithiasis ms3 Forms: - Medication Reconciliation Form ms3 - SBAR form ms3 Signatures: Dispatcher [employer] EDMS Jose Juan Novoa FNP-C [employer]PERVISOR [employer]-Cla1 Nimo Cardoza RN RN cg Yusef Coello DO DO ms3 Monica Poe RN RN bo Corrections: (The following items were deleted from the chart) 12/28 20:04 20:02 Abdomen Pelvis Wo Con+CT.RAD.BRZ ordered. EDMS EDMS 23:05 22:55 Home ms3 ms3 23:05 22:55 Stable ms3 ms3 23:05 22:55 Bilateral nephrolithiasis ms3 ms3 23:05 22:55 Hematuria, unspecified ms3 ms3 23:05 22:55 Low back pain ms3 ms3 23:05 22:57 elevated creatitine ms3 ms3 12/29 00:44 12/28 23:09 ms3 cg
--- NOTE | 2021-12-28 22:56 | ER ---
Nurse's Notes [facility] Name: Joyce Duran Age: 41 yrs Sex: Female : 1980 Arrival Date: 12/28/2021 Time: 19:32 Bed 18 Private MD: Diagnosis: elevated creatinine;Nausea with vomiting, unspecified;Bilateral flank pain;Nephrolithiasis Presentation: 12/28 19:53 Chief complaint: Patient states: N/V and flank pain. Coronavirus screen: Vaccine ian status: Patient reports receiving the 2nd dose of the covid vaccine. Ebola Screen: Patient negative for fever greater than or equal to 101.5 degrees Fahrenheit, and additional compatible Ebola Virus Disease symptoms Patient denies exposure to infectious person. Patient denies travel to an Ebola-affected area in the 21 days before illness onset. Initial Sepsis Screen: Does the patient meet any 2 criteria? No. Patient's initial sepsis screen is negative. Does the patient have a suspected source of infection? No. Patient's initial sepsis screen is negative. Risk Assessment: Do you want to hurt yourself or someone else? Patient reports no desire to harm self or others. Onset of symptoms was December 27, 2021. 19:53 Method Of Arrival: Ambulatory ian 19:53 Acuity: PALLAVI 3 ian Triage Assessment: 20:59 General: Appears uncomfortable, Behavior is calm, cooperative. Pain: Complains of pain ian in back. Musculoskeletal: No deficits noted. 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 - Social history:: Smoking status: Patient denies any tobacco usage or history of. Screenin:59 Abuse screen: Denies threats or abuse. Denies injuries from another. Nutritional ian screening: No deficits noted. Tuberculosis screening: No symptoms or risk factors identified. Fall Risk None identified. Assessment: 20:58 Reassessment: I recv'd the pt to room #18 \\T\\ 1952. Orders were completed faith. The pt is ian accompanied by her mother. 23:22 Reassessment: The pt continues retching occasionally, despite the medications. Covid ian swab was sent. Her mother has not returned, yet, but the pt is to be hospitalized. All labs sent. 12/29 00:13 Reassessment: Dong, , . He would like to be contacted when the pt ian is moved upstairs. 00:47 Reassessment: Registration called to "flip" the pt. ian 00:50 Reassessment: The pt's was called to tell him of her room assignment. ian 00:54 Reassessment: I have attempted to call report to the 2nd floor, but was on indefinite ian ringing, before it disconnected. I will attempt again. 00:57 Reassessment: Report called and the pt will be transported via wc. ian Vital Signs: 12/28 20:58 BP 125 / 76; Pulse 73; Resp 18; Temp 98.3; Pulse Ox 100% on R/A; Pain 10/10; ian 21:07 BP 144 / 90; Pulse 78; Resp 18; Pulse Ox 100% on R/A; Pain 9/10; ian 22:03 BP 141 / 56; Pulse 76; Resp 16; Pulse Ox 100% on R/A; Pain 4/10; ian 23:23 BP 134 / 65; Pulse 88; Resp 16; Temp 98.5; Pulse Ox 100% on R/A; ian 12/29 00:09 BP 104 / 47; Pulse 68; Resp 18; Pulse Ox 99% on R/A; Pain 6/10; ian 00:50 BP 130 / 76; Pulse 70; Resp 18; Temp 98.3; Pulse Ox 100% on R/A; ian ED Course: 12/28 19:32 Patient arrived in ED. bp1 19:33 Yusef Coello DO is Attending Physician. ms3 19:49 Monica Poe, RN is Primary Nurse. ian 20:21 Urine --Ancillary (enter results) Sent. ian 20:21 Stone Protocol Sent. ian 20:22 CBC with Diff Sent. ian 20:23 CMP Sent. ian 20:29 Stone Protocol In Process Unspecified. EDMS 20:56 Urine --Ancillary (enter results) Sent. ian 20:58 Triage completed. ian 21:00 No provider procedures requiring assistance completed. ian 21:00 Arm band placed on . ian 21:08 Bed in low position. Call light in reach. Side rails up X 1. Adult w/ patient. ian 22:53 Serge Beltran MD is Referral Physician. ms3 23:05 Bobby Mauro MD is Hospitalizing Provider. ms3 23:23 Urine Culture Sent. ian 23:23 COVID-19 SARS RT PCR (Document "Date of Onset" if Symptomatic) Sent. ian 23:24 Patient admitted, IV remains in place. ian Administered Medications: 20:21 Drug: Ketorolac 10 mg Route: IVP; Site: left antecubital; ian 21:48 Follow up: Response: No adverse reaction; No change in condition ian 20:22 Drug: Zofran (Ondansetron) 4 mg Route: IVP; Site: left antecubital; ian 21:48 Follow up: Response: No adverse reaction; No change in condition ian 20:22 Drug: Lactated Ringers Solution 1000 ml Route: IV; Rate: 4000 ml/hr; Site: left ian antecubital; 21:06 Drug: Ketamine 10 mg Route: IVP; Site: left antecubital; ian 21:48 Follow up: Response: No adverse reaction; Pain is decreased ian 22:03 Drug: morphine 4 mg Route: IVP; Site: left antecubital; ian 22:11 Follow up: Response: No adverse reaction; Marked relief of symptoms ian 22:03 Drug: Phenergan (promethazine) 12.5 mg Route: IM; Site: left gluteus; ian 22:11 Follow up: Response: No adverse reaction; Marked relief of symptoms ian 12/29 00:37 Drug: Zofran (Ondansetron) 4 mg Route: IVP; Site: left antecubital; ian 00:45 Follow up: Response: No adverse reaction; No change in condition ian 00:45 Drug: ProTONIX (pantoprazole) 40 mg Route: IVP; Site: left antecubital; ian Medication: 12/28 21:08 VIS not applicable for this client. ian Outcome: 21:08 Condition: stable ian 22:55 Discharge ordered by . ms3 23:09 Decision to Hospitalize by Provider. ms3 23:24 Admitted to ian 12/29 01:21 Patient left the ED. ian Signatures: Dispatcher [employer] EDMS Yusef Coello DO DO ms3 Paniauga, Christine bp1 O'Liang, Monica, RN RN ian
[2021-12-29] MEDS ORDERED: ONDANSETRON 4 MG/2 ML VIAL ONE (00:34)
[2021-12-29] MEDS ORDERED: PANTOPRAZOLE 40 MG INJ ONE (00:44)
--- NOTE | 2021-12-29 00:53 | P.HP ---
Certification for Inpatient Patient admitted to: Observation With expected LOS: <2 Midnights Patient will require the following post-hospital care: None Practitioner: I am a practitioner with admitting privileges, knowledge of patient current condition, hospital course, and medical plan of care. Services: Services provided to patient in accordance with Admission requirements found in Title 42 Section 412.3 of the Code of Federal Regulations Patient History Date of Service: 12/29/21 Reason for admission: Intractable vomiting History of Present Illness: 41-year-old female with history of kidney stones presents emergency department for nausea and vomiting/bilateral flank pain. Patient reports that her pain and vomiting began approximately 24 hours ago has been nonstop all day, she is given multiple rounds of pain medication and antiemetics in the ER but still continues to vomit. Patient reports feeling similar whenever she had kidney stones and pyelonephritis in the past. Her labs were significant for mild leukocytosis, acute kidney injury, hypokalemia her urinalysis was negative for nitrites or leuk esterase urine microscopic with greater than 50 bacteria but 20-50 squamous cells as well as no white blood cells doubt UTI at this time CT stone protocol demonstrated bilateral nephrolithiasis without any hydronephrosis or ureteral stones. Given patient's intractable vomiting ED prior wishes to admit for further evaluation and management. Allergies No Known Drug Allergies Allergy (Verified 12/17/16 09:44) Unknown Home Medications: Pnv38/Iron Cbn&Gluc/FA/Dss/Dha [Citranatal Assure Combo Pack] 1 each PO DAILY 02/11/13 Esomeprazole Mag Trihydrate [Nexium] 40 mg PO DAILY 12/18/16 Codeine/APAP [Tylenol W/Codeine #3 tab] 1 tab PO Q6HP PRN #24 tab 09/13/18 - Past Medical/Surgical History Diabetic: No -: kidney stones 10/2012 -: previous c/s 01/2013 & 12/2016 Psychosocial/ Personal History: Patient lives at home with her family - Family History Father -: Hypertension Notes: Hepatitis C - Social History Smoking Status: Never smoker Alcohol use: No CD- Drugs: No Caffeine use: No Place of Residence: Home Review of Systems 10-point ROS is otherwise unremarkable Gastrointestinal: Nausea, Vomiting, Abdominal Pain Physical Examination - Physical Exam General: Alert, In no apparent distress, Oriented x3 (70) HEENT: Atraumatic, PERRLA, Mucous membr. moist/pink, EOMI, Sclerae nonicteric Neck: Supple, 2+ carotid pulse no bruit, No LAD, Without JVD or thyroid abnormality Respiratory: Clear to auscultation bilaterally, Normal air movement Cardiovascular: Regular rate/rhythm, Normal S1 S2 Capillary refill: <2 Seconds Gastrointestinal: Normal bowel sounds, No tenderness (No CVA tenderness) Musculoskeletal: No tenderness Integumentary: No rashes Neurological: Normal speech, Normal strength at 5/5 x4 extr, Normal tone, Normal affect Lymphatics: No axilla or inguinal lymphadenopathy - Studies Laboratory Data (last 24 hrs) 12/28/21 20:40: Sodium 134 L, Potassium 3.4 L, BUN 23 H, Creatinine 1.83 H, Glucose 161 H, Total Bilirubin 0.5, AST 21, ALT 23, Alkaline Phosphatase 66 12/28/21 20:40: WBC 11.8 H, Hgb 14.8, Hct 42.5, Plt Count 331 Assessment and Plan - Plan Assessment: Intractable vomiting, bilateral flank pain Hypokalemia Plan: Intractable vomiting, bilateral flank pain: N.p.o., advance to clear liquids as tolerated, as needed pain medications and antiemetics. Cover with Rocephin as patient had similar symptoms when she pyelonephritis in the past CT was done without contrast questionable UTI. Urine culture. Patient with bilateral nephrolithiasis without hydronephrosis or other acute urological findings. No fever chills noted. Hypokalemia: Protocol in place. DVT PPX: Lovenox Code status: Full Discharge Plan: Home Plan to discharge in: 24 Hours - Advance Directives Does patient have a Living Will: No Does patient have a Durable POA for Healthcare: No - Code Status/Comfort Care Code Status Assessed: Yes (Full code) Critical Care: No Time Spent Managing Pts Care (In Minutes): 55
[2021-12-29] MEDS ORDERED: SODIUM CHLORIDE 0.9% 10ML INJ IV PRN (01:02)
[2021-12-29] MEDS: NA CHLORIDE 0.9% 1,000 ML IV SCH ×3 (01:14→15:55)
[2021-12-29] MEDS: KCL 20 MEQ/100 mL IVPB 20 MEQ/100 ML BAG IV SCH ×2 (01:18→03:27)
[2021-12-29] MEDS ORDERED: MORPHINE 2 MG/ML SYR IV PRN ×2 (01:25→04:02)
[2021-12-29] MEDS: PROMETHAZINE INJ 25 MG/ML AMP IV PRN ×4 (01:41→15:47)
[2021-12-29] MEDS ORDERED: CEFTRIAXONE 1,000 MG in NA CHLORIDE 0.9% 50 ML IVPB SCH (02:00)
[2021-12-29] MEDS: ONDANSETRON 4 MG/2 ML VIAL IV PRN ×3 (02:47→19:29)
[2021-12-29] MEDS ORDERED: MORPHINE 2 MG/ML SYR IV ONE ×2 (03:50)
[2021-12-29 04:37] LABS: Albumin 3.9 g/dL (3.4-5.0); Bilirubin Total 0.2 mg/dL (0.2-1.0); Potassium 3.8 mmol/L (3.5-5.1); Protein, Total 7.5 g/dL (6.4-8.2)
[2021-12-29 04:53] LABS: Absolute Lymphocytes (CBC) 0.5 K/uL (0.7-4.9); Hematocrit 37.6 % (36.0-45.0); MPV 7.8 fL (7.6-11.3); RBC Red Blood Cell Count 4.31 M/uL (3.86-4.86)
[2021-12-29] MEDS: MORPHINE 2 MG/ML SYR IV PRN ×4 (08:45→15:48)
[2021-12-29] MEDS: ENOXAPARIN 40 MG/0.4 ML SQ SCH (08:45)
[2021-12-29] MEDS: PANTOPRAZOLE 40 MG INJ IVP SCH ×2 (08:45→21:16)
[2021-12-29] MEDS ORDERED: KCL 20 MEQ/100 mL IVPB 20 MEQ/100 ML BAG IV ONE (14:00)
--- NOTE | 2021-12-29 15:32 | RAD REPORT ---
EXAM DESCRIPTION: US - Pelvis Complete - 12/29/2021 3:17 pm CLINICAL HISTORY: RT ADX CYST Pelvic pain. COMPARISON: Transvaginal Study Probe dated 11/28/2020 FINDINGS: The uterus is normal in size, shape and echotexture. The uterus measures 9.4 cm The endometrial stripe measures 9 mm, within normal limits The left ovary was not visualized. The right ovary has a 5 mm x 3.8 cm minimally complex cyst. Blood flow is present within the right ovary. IMPRESSION: Left ovary not visualized. Minimally complex right ovarian cyst. The right ovary has a v ascular flow. No emergent findings.
--- NOTE | 2021-12-29 15:32 | RAD REPORT ---
EXAM DESCRIPTION: US - Transvaginal Study Probe - 12/29/2021 3:17 pm CLINICAL HISTORY: new cyst, h/o multiple adnexal cysts s/p excision Pelvic pain. COMPARISON: Pelvis Complete dated 12/29/2021 FINDINGS: The uterus is normal in size, shape and echotexture. The uterus measures 9.4 cm The endometrial stripe measures 9 mm, within normal limits The left ovary was not visualized. The right ovary has a 5 mm x 3.8 cm minimally complex cyst. Blood flow is present within the right ovary. IMPRESSION: Left ovary not visualized. Minimally complex right ovarian cyst. The right ovary has a v ascular flow. No emergent findings.
[2021-12-29] MEDS: CEFTRIAXONE 1,000 MG in NA CHLORIDE 0.9% 50 ML IVPB SCH (18:56)
[2021-12-29] MEDS: HYDROMORPHONE HCL 1 MG/ML INJ IV PRN (19:28)
[2021-12-30] MEDS: HYDROMORPHONE HCL 1 MG/ML INJ IV PRN ×4 (00:35→22:56)
[2021-12-30] MEDS: PROMETHAZINE INJ 25 MG/ML AMP IV PRN ×3 (00:35→22:56)
[2021-12-30] MEDS: NA CHLORIDE 0.9% 1,000 ML IV SCH ×4 (00:44→19:52)
[2021-12-30 05:57] LABS: Absolute Lymphocytes (CBC) 1.6 K/uL (0.7-4.9); Hematocrit 33.5 % (36.0-45.0); Lymphocytes % 21.5 % (15.3-44.8); MPV 7.6 fL (7.6-11.3); RBC Red Blood Cell Count 3.79 M/uL (3.86-4.86)
--- NOTE | 2021-12-30 06:14 | P.PN ---
Date of Service: 12/30/21 Subjective: Improving, pain is less frequent and severe Nausea is also less frequent and severe, tolerated some sips of clear liquids Still requiring antiemetics ROS: 10 point ROS as noted above, otherwise negative Physical exam GEN: Alert, oriented, NAD HEENT: Normal conjunctiva, sclera anicteric CV: Regular rate and rhythm, no edema Pulm: Nonlabored respirations on room air ABD: Soft, mild suprapubic discomfort, nondistended no CVA tenderness, no tenderness along paraspinal muscles Integumentary: No rashes Neuro: Normal speech, normal affect Problem List acute pyelonephritis R adnexal cyst RANJANA hypokalemia improving with antibiotics, IVF, pain control suspect b/l flank pain secondary to pyelonephritis nonobstructing nephrolithiasis seen on CT; no hydronephrosis advance diet, wean IVF afebrile f/u cultures R adnexal cyst - pt s/p excision of bilateral adnexal cysts ~2-3 months ago, now with development of new cyst in short time frame U/S obtained, no emergent findings, 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
[2021-12-30 06:15] LABS: Albumin 3.1 g/dL (3.4-5.0); Bilirubin Total 0.2 mg/dL (0.2-1.0); Potassium 3.5 mmol/L (3.5-5.1); Protein, Total 6.1 g/dL (6.4-8.2)
[2021-12-30] MEDS: ONDANSETRON 4 MG/2 ML VIAL IV PRN (07:33)
[2021-12-30] MEDS: CEFTRIAXONE 1,000 MG in NA CHLORIDE 0.9% 50 ML IVPB SCH ×2 (07:34→19:51)
[2021-12-30] MEDS: PANTOPRAZOLE 40 MG INJ IVP SCH (07:34)
[2021-12-30] MEDS: ENOXAPARIN 40 MG/0.4 ML SQ SCH (07:35)
[2021-12-30] MEDS ORDERED: POTASSIUM CL SA 10 MEQ TAB PO ONE (09:00)
[2021-12-31] MEDS: PROMETHAZINE INJ 25 MG/ML AMP IV PRN ×4 (05:08→20:55)
[2021-12-31] MEDS: HYDROMORPHONE HCL 1 MG/ML INJ IV PRN ×4 (05:08→20:54)
[2021-12-31 06:01] LABS: Potassium 3.6 mmol/L (3.5-5.1)
[2021-12-31] MEDS ORDERED: POTASSIUM CL SA 10 MEQ TAB PO ONE (06:04)
--- NOTE | 2021-12-31 06:18 | P.PN ---
Date of Service: 12/31/21 Subjective: improving, still required IV pain medication overnight, but less often intermittent nausea, tolerating liquids ROS: 10 point ROS as noted above, otherwise negative Physical exam GEN: Alert, oriented, NAD HEENT: Normal conjunctiva, sclera anicteric CV: Regular rate and rhythm, no edema Pulm: Nonlabored respirations on room air ABD: Soft, mild suprapubic discomfort, nondistended no CVA tenderness, no tenderness along paraspinal muscles Neuro: Normal speech, normal affect Problem List acute pyelonephritis R adnexal cyst RANJANA hypokalemia improving with antibiotics, IVF, pain control suspect b/l flank pain secondary to pyelonephritis; less likely due to cyst, less likely endometritis /endometriosis. 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
[2021-12-31] MEDS: NA CHLORIDE 0.9% 1,000 ML IV SCH ×2 (08:53→14:19)
[2021-12-31] MEDS: CEFTRIAXONE 1,000 MG in NA CHLORIDE 0.9% 50 ML IVPB SCH ×2 (08:54→20:53)
[2021-12-31] MEDS: PANTOPRAZOLE 40 MG INJ IVP SCH (08:54)
[2021-12-31] MEDS: ENOXAPARIN 40 MG/0.4 ML SQ SCH (08:54)
[2021-12-31] MEDS ORDERED: DOCUSATE NA 100 MG CAP PO PRN (14:00)
[2021-12-31 17:18] VITALS: O2SAT 98
[2022-01-01] MEDS: NA CHLORIDE 0.9% 1,000 ML IV SCH (00:06)
[2022-01-01 00:45] VITALS: BMI 30.2
[2022-01-01] MEDS: CODEINE 30MG/APAP 300MG TAB PO PRN ×2 (03:02→08:41)
[2022-01-01] MEDS: PROMETHAZINE INJ 25 MG/ML AMP IV PRN ×2 (03:02→08:39)
[2022-01-01 05:28] LABS: Absolute Lymphocytes (CBC) 2.1 K/uL (0.7-4.9); Hematocrit 36.2 % (36.0-45.0); Lymphocytes % 35.6 % (15.3-44.8); MPV 7.4 fL (7.6-11.3); RBC Red Blood Cell Count 4.13 M/uL (3.86-4.86)
[2022-01-01 05:42] LABS: Potassium 3.6 mmol/L (3.5-5.1)
[2022-01-01] MEDS ORDERED: CEFTRIAXONE 1000 MG/VIAL ONE (08:33)
[2022-01-01] MEDS: PANTOPRAZOLE 40 MG INJ IVP SCH (08:41)
[2022-01-01] MEDS: ENOXAPARIN 40 MG/0.4 ML SQ SCH (08:43)
[2022-01-01] MEDS: CEFTRIAXONE 1,000 MG in NA CHLORIDE 0.9% 50 ML IVPB SCH (08:44)
[2022-01-01] MEDS ORDERED: POTASSIUM CL SA 10 MEQ TAB PO ONE (09:00)
[2022-01-01 12:17] VITALS: BP 135/85; TEMP 97.9
--- NOTE | 2022-01-01 12:50 | P.DS ---
Admission Date: 12/29/21 Discharge Date: 01/01/22 Disposition: ROUTINE DISCHARGE Discharge Condition: FAIR Reason for Admission: Intractable vomiting - Problems (1) Acute pyelonephritis Current Visit: Yes Status: Acute (2) Ovarian cyst Current Visit: Yes Status: Acute (3) Intractable nausea and vomiting Current Visit: Yes Status: Acute Brief History of Present Illness: 41-year-old female with history of kidney stones presents emergency department for nausea and vomiting/bilateral flank pain. She was given multiple rounds of pain medication and antiemetics in the ER but still continued to vomit. Patient reported feeling similar whenever she had kidney stones and pyelonephritis in the past. Her labs were significant for mild leukocytosis, acute kidney injury, hypokalemia. Her urinalysis was negative for nitrites or leuk esterase urine microscopic with greater than 50 bacteria but 20-50 squamous cells as well as no white blood cells. CT stone protocol demonstrated bilateral nephrolithiasis without any hydronephrosis or ureteral stones. Given patient's intractable vomiting, she was admitted for further management. Hospital Course: Diagnosis Acute pyelonephritis Bilateral nephrolithiasis R adnexal cyst RANJANA hypokalemia Hospital course Patient admitted to the medical floor and treated with IV antibiotics, IV fluid and IV opioids for pain control B/l flank pain deemed secondary to pyelonephritis; differential diagnosis include pain from ovarian cyst or endometriosis or renal colic from bilateral nephrolithiasis. Urine culture: Mixed growth Patient clinically improved, pain is significantly improved and has tolerated diet. She has been afebrile with stable vitals Patient deemed stable for discharge. She is discharged with oral cefpodoxime and Flagyl and referred to follow-up with Dr. Ibarra as outpatient regarding the ovarian cyst. Vital Signs/Physical Exam: Temp Pulse Resp BP Pulse Ox 97.9 F 68 16 135/85 97 01/01/22 12:00 01/01/22 12:00 01/01/22 12:00 01/01/22 12:00 01/01/22 12:00 Laboratory Data at Discharge: WBC 5.9 K/uL (4.3-10.9) D 01/01/22 05:19 Hgb 12.5 g/dL (12.0-15.0) 01/01/22 05:19 Hct 36.2 % (36.0-45.0) 01/01/22 05:19 Plt Count 261 K/uL (152-406) 01/01/22 05:19 Sodium 139 mmol/L (136-145) 01/01/22 05:19 Potassium 3.6 mmol/L (3.5-5.1) 01/01/22 05:19 BUN 12 mg/dL (7-18) 01/01/22 05:19 Creatinine 0.55 mg/dL (0.55-1.3) 01/01/22 05:19 Glucose 75 mg/dL (74-106) 01/01/22 05:19 Total Bilirubin 0.2 mg/dL (0.2-1.0) 12/30/21 05:30 AST 18 U/L (15-37) 12/30/21 05:30 ALT 20 U/L (12-78) 12/30/21 05:30 Alkaline Phosphatase 39 U/L (45-117) L 12/30/21 05:30 Home Medications: Linaclotide [Linzess] 1 cap PO DAILY 12/29/21 Cefpodoxime Proxetil [Vantin] 200 mg PO BID #14 tablet 01/01/22 Codeine/APAP [Tylenol #3*] 1 tab PO Q4H PRN #20 tab 01/01/22 metroNIDAZOLE [Flagyl] 500 mg PO Q8H #21 tablet 01/01/22 New Medications: metroNIDAZOLE [Flagyl] 500 mg PO Q8H #21 tablet Codeine/APAP [Tylenol #3*] 1 tab PO Q4H PRN #20 tab PRN Reason: Pain Scale 5-7 (Moderate) Cefpodoxime Proxetil [Vantin] 200 mg PO BID #14 tablet Diet: Regular Activity: Ad moira Followup: Dolly Ibarra MD [ACTIVE - CAN ADMIT] - 1-2 Weeks NONE,NONE [Primary Care Provider] - 1 Week
[2022-01-02] MEDS ORDERED: PANTOPRAZOLE 40MG TABLET PO SCH (06:30)
== END 2022-01-01 14:21 | disposition home or self-care (01) | DRG 690 ==
LOC: ER 19:31 → ERHOLD 12-29 00:41 → 2ND 12-29 00:51 → OBSVTOIN 12-29 19:53
PROVIDERS: ADMIT Hospitalist; ATTEND Internal Medicine
DX: N10 Acute pyelonephritis (principal); N17.9 Acute kidney failure, unspecified; E87.6 Hypokalemia; N83.201 Unspecified ovarian cyst, right side; N20.0 Calculus of kidney; Z20.822 Contact with and (suspected) exposure to COVID-19
CPT/HCPCS: 36415; 74176; 76377; 76830; 76856; 80048; 80053; 81003; 81015; 81025; 84132; 84145; 85025; 86140; 87040; 87086; 87088; 96372; 96374; 96375; 99285; C9113; G0378; J1170; J1650; J2270; J2405; J2550; J3480; J7030; J7120; U0003

== ENCOUNTER 2022-07-19 14:03 | Emergency (ER) | payer OTHER ==
--- OUTSIDE RECORDS SUMMARY | 2022-07-19 14:09 | XMS REPORT | Continuity of Care Document ---
:1980 Author Organization [facility] t Address [address] [place] [address] Care Team Providers Name Role Phone PCP, PATIENT DOES NOT HAVE A Primary Care Physician Unavaila ble SANDY BEAR Attending Clinician Unavailable Sandy Bear MD Attending Clinician Stephen Quintanilla MD Attending Clinician STEPHEN QUINTANILLA Attending Clinician Unavailable Pob, Adc Lab Main Attending Clinician Unavailable Only, Adc Test Attending Clinician Unavailable Doctor Unassigned, [place] Attending Clinician Unavailable 2, Adc Lab Attending Clinician Unavailable Pcp, Patient Does Not Have A Attending Clinician [phone] YOSSI POTTER Attending Clinician Unavailable Draw, Clc-Bls Lab Attending Clinician Unavailable Yossi Potter MD Attending Clinician Ene Webster Attending Clinician ENE DE PAZ A Attending Clinician Unavailable Carol Shen Attending Clinician CAROL SPENCER Attending Clinician Unavailable Rm, Adc Surg Spec Procedure Attending Clinician Unavailable HAYLEE ENG Attending Clinician Unavailable ELVIS MARRERO Attending Clinician Unavailable SANDY BEAR Admitting Clinician Unavailable Sandy Bear MD Admitting Clinician ENE DE PAZ Admitting Clinician Unavailable Stephen Quintanilla MD Admitting Clinician ILAN CERDA Admitting Clinician Unavailable Payers Payer Name Policy Type Policy Number Effective Date Expiration Date Gopal deal [facility] [id number] 2019 CHOICE [place] 00:00:00 Problems Condition Condition Condition Status Onset Resolution [...] Added automatic ally from request for surgery [id number] Obesity Obesity Disease Active Univers (BMI (BMI [...] Added automatic ally from request for surgery [id number] Calculus Calculus Disease Active Overview: Un sol of kidney of kidney 1-14 Formattin i ty of 00:00: g of this note Medical might be Branch different from the original. Added automatic ally from request for surgery [id number] Ureteral Ureteral Disease Active Overview: Un sol stent stent 1-14 Formattin ity of retained retained 00:00: g of this [place] as 00 note Medical might be Branch different from the original. Added automatic ally from request for surgery [id number] RANJANA (acute RANJANA (acute Disease Active 2018-[address] [facility] kidney 2-06 [facility] injury) injury) 00:[facility] Medical 00 Center Left Left Disease Active 2018-[address] [facility] [address] ureteral ureteral 2-06 [facility] stone stone 00:00: Medical 00 Center Renal Renal Disease Active 2018-[address] calculus, calculus, 2-06 [facility] bilateral bilateral 00:00: Medi aleksey 00 Center Leukocytos Leukocytos Disease Active 2018-[address] is is 206 [facility] 00:00: Medical 00 [place] Hyponatrem Hyponatrem Disease Active 2018-[address] ia ia 2-06 [facility] 00:00: Medical 00 [place] Sepsis Sepsis Disease Active 2018-[address] 2-05 [facility] 00:00: Medical 00 [place] Obstructiv Obstructiv Disease Active 2018-[address] e uropathy e uropathy 05 [facility] kes 00:00: Medical 00 Center Tobacco Tobacco Disease Active Univers use use 6-17 ity of 00:00: [address] Branch Allergies, Adverse Reactions, Alerts Allergy Allergy Status Severity Reaction(s) Onset Inactive Treating Comm ents Source Name Type Date Date Clinician NO KNOWN Drug Active Univers ALLERGIE Class ity of [facility] Social History Social Habit Start Date Stop Date Quantity Comments Source History of Cigarette Smoker Universi ty of tobacco use [facility] Branch History SDOH [facility] Alcohol Std Medical Cente r Drinks History SDOH [facility] Alcohol Binge Medical Raciel ter History SDOH [facility] Alcohol Comment Medical C enter Exposure to 2021-12-24 2022-01-03 Not sure University of SARS-CoV-2 00:00:00 14:15:00 [facility] (event) Branch Alcohol intake 2019-08-05 2019-08-05 [facility]00 of alcohol [facility] (finding) Tobacco Comment 2019-07-25 2019-07-25 since [address] [facility] 00:[facility]00 [facility] Center Tobacco use and 2019-07-25 2019-07-[address] [facility] exposure 00:00:00 00:00:00 Medical Center History SDOH 2019-07-25 2019-07-[address] [facility] Alcohol Frequency 00:00:00 00:00:00 Medical Center Sex Assigned At [address] [facility] 00:00:00 00:00:00 Medical Center Smoking Status Start Date Stop Date Source Occasional tobacco 2021-01-12 00:00:00 [facility] [place] smoker Medical Branch Former smoker 2019-07-25 00:00:2019-07-[address] [facility] Medical 00:00:00 Center Medications Ordered Filled Start Stop Current Ordering Indication Dosage Frequency Signature Comments Components Source Medication Medication Date Date Medication? Clinician (SIG) Name Name Lactobacill Yes Take by Uni vers us 5-19 mouth. ity of acidophilus 14:27: [place] (PROBIOTIC 44 Medical ORAL) Branch traMADoL 50 Yes 50mg Take 50 mg Univers mg tablet 5-19 by mouth ity of 14:27: every 8 [place] [address] (eight) Medical hours as Branch needed for Pain (scale 4-6). Lactobacill 0 Yes Take by Uni vers us 5-19 mouth. ity of acidophilus 14:27: [place] (PROBIOTIC 44 Medical ORAL) Branch traMADoL 50 Yes 50mg Take 50 mg Univers mg tablet 5-19 by mouth ity of 14:27: every 8 [place] [address] (eight) Medical hours as Branch needed for Pain (scale 4-6). Lactobacill Yes Take by Uni vers us 5-19 mouth. ity of acidophilus 14:27: [place] (PROBIOTIC 44 Medical ORAL) Branch traMADoL 50 0 Yes 50mg Take 50 mg Univers mg tablet 5-19 by mouth ity of 14:27: every 8 [place] [address] (eight) Medical hours as Branch needed for Pain (scale 4-6). LINZESS 290 2020-0 Yes Univer s mcg Cap 6-21 ity of 00:00: [place] Medical [facility] LINZESS 290 2020-0 Yes Univer s mcg Cap 6-21 ity of 00:00: [place] Medical [facility] LINZESS 290 2020-0 Yes Univer s mcg Cap 6-21 ity of 00:00: [place] [facility] famotidine 0 Yes Univers 20 mg 5-09 ity of tablet 00:00: [place] [facility] famotidine 0 Yes Univers 20 mg 5-09 ity of tablet 00:00: Medical Branch famotidine 0 Yes Univers 20 mg 5-09 ity of tablet 00:00: [place] Medical [facility] ranitidine 2018-08 Yes 150mg Take [address] (ZANTAC) 2-09 mg by [facility] 150 MG 19:54: mouth 2 Medical tablet 17 (two) Center times daily as needed for Heartburn. Vital Signs Vital Name Observation Time Observation Value Comments Source Systolic blood 2022-01-03 19:26:00 132 mm[Hg] Univer sity of pressure [facility] Diastolic blood 2022-01-03 19:26:00 86 mm[Hg] Unive rsity of [facility] Heart rate 2022-01-03 19:26:00 93 /min [facility] Body temperature 2022-01-03 19:26:00 36.94 [facility] Respiratory rate 2022-01-03 19:26:00 18 /min [facility] Body height 2022-01-03 19:26:00 157.5 cm [facility] Body weight 2022-01-03 19:26:00 73.936 kg [facility] BMI 2022-01-03 19:26:00 29.81 kg/m2 [facility] Procedures This patient has no known procedures. Plan of Care Planned Activity Planned Date Details Comments Source Future Scheduled 2022-04-[address] [facility] Test 00:00:00 (#1) [code = Medical Center INFLUENZA VACCINE (#1)] Future Scheduled 2021-08-[address] [facility] Test 00:00:00 (12+) [code = [facility] Center DEPRESSION SCREENING (12+)] Future Scheduled 2020-08-[address] [facility] Test 00:00:00 Counseling and Medical Cente r Screening (12+) [code = Tobacco Cessation Counseling and Screening (12+)] Future Scheduled [address] [facility] Test 00:00:00 malignant neoplasm of Medica l Center cervix (procedure) [code = 389971244] Future Scheduled 2001 DTAP/TDAP/TD VACCINES [facility] Test 00:00:00 (1 - Tdap) [code = Medical C enter DTAP/TDAP/TD VACCINES (1 - Tdap)] Future Scheduled 2000 HEPATITIS C SCREENING [facility] Test 00:00:00 [code = HEPATITIS C Medical Center SCREENING] Future Scheduled 1983-01-16 COVID-19 VACCINE (#1) [facility] Test 00:00:00 [code = COVID-[address] VACCINE (#1)] Encounters Start End Encounter Admission Attending Care Care Encounter Source Date/Time Date/Time Type Type Clinicians Facility Department ID 2022-07-31 2022-07-31 Outpatient R HAMLETOLIVIER [facility] [id number] Univers 09:45:00 09:45:00 SANDY guevara [facility] 2022-07-02 2022-07-02 [facility] [id number] Univers 00:00:00 00:00:00 Sandy OLIVER [id number] ity [facility] [id number] [phone] Nv dical [facility] [address] [facility] 2022-01-03 2022-01-03 Office [facility] [id number] Univers 15:00:00 16:34:21 Visit Stephen OLIVER [id number] i ty of [facility] [id number] [phone] Nv dical [facility] [address] [facility] 2022-01-03 2022-01-03 Out[facility] [id number] Univers 14:30:00 15:00:32 SANDY pool [facility] 2022-01-03 2022-01-03 [facility] [id number] Univers 14:30:00 15:00:32 Visit Sandy OLIVER [id number] ity of [place] 4.2.7.2.686 [place] [phone] Nv dical [address] 2022-01-03 2022-01-03 Outpatient R SOCORRO [facility] [id number] Univers 15:00:00 15:00:00 STEPHEN itpool [facility] 2022-01-03 2022-01-03 Outpatient R MARIANELA [facility] [id number] Univers 09:45:00 09:45:00 SANDYAMIE guevara [facility] 2021-10-05 2021-10-05 Outpatient R MARIANELA [facility] [id number] Univers 08:30:00 09:51:27 SANDY itpool of [facility] 2021-10-05 2021-10-05 Office [facility] [id number] Univers 08:30:00 09:51:27 Visit Sandy OLIVER [id number] ity of [id number] [phone] Nv dical NAL [address] [facility] 2021-09-21 2021-09-21 Telephone [facility] [id number] Univers 00:00:00 00:00:00 Sandy ORTIZTON [id number] ity of [place].2.[place] [phone] Nv dical NAL [address] [facility] 2021-09-20 2021-09-20 Outpatient R [facility] [id number] Univers 06:55:00 13:16:00 SANDY itpool of [facility] 2021-09-20 2021-09-20 Hospital [facility] [id number] Univers 06:55:00 13:16:00 Encounter Sandy ORTIZTON [id number] ity of [place] 4.2.7.2.[place] SURGICAL [id number] [facility] [address] 2021-09-20 2021-09-20 Surgery [facility] 1.2.840.114 [id number] Univers 08:00:00 10:44:00 Sandy ORTIZTON [id number] ity of [place] 4.2.7.2.686 [place]GICAL [phone] [facility] [address] 2021-09-19 2021-09-19 Neuropsychology Medical Consultant Aryan, Adc Lab Main [facility] [id number] 40.114 [id number] Univers 09:00:00 09:15:00 Visit AdSandy jaramillo [id number] ity of [place] 4.2.7.2.[place] [phone] Nv dical NAL [address] [facility] 2021-09-19 2021-09-19 Laboratory Only, Adc Test [facility] 1.2.840. 114 [id number] Univers 08:45:00 09:00:00 Only Adum, Sandy OLIVER [id number] ity [facility] 4.2.7.2.686 [place] [phone] [facility] [address] 2021-09-19 2021-09-19 Outpatient [facility] [id number] Univers 08:45:00 08:45:00 SANDY itpool [facility] 2021-09-19 2021-09-19 Orders Doctor MELANY 1.2.840.114 [id number] Univers 00:00:00 00:00:00 Only Unassigned, MARCELINA [id number] ity [facility] 4.2.7.2.686 [place] [phone] [address] 2021-09-07 2021-09-07 Outpatient R ADUM, [facility] [id number] Univers 09:30:00 10:41:18 SANDY guevara [facility] 2021-09-07 2021-09-07 Office Ad, [facility] 1.2.840.114 [id number] Univers 09:30:00 10:41:18 Visit Sandy OLIVER [id number] itDay [facility] 4.2.7.2.686 [facility] PROFESSIO [phone] Nv dical NAL [address] [facility] 2021-09-07 2021-09-07 Outpatient R ADUM, [facility] [id number] Univers 09:30:00 10:41:18 SANDY itpool [facility] 2021-08-23 2021-08-23 Neuropsychology Medical Consultant 2, Adc Lab [facility] 1.2.840.114 [id number] Univers 11:00:00 11:06:03 Visit Sandy Bear [id number] ity [facility] [id number] [place] [phone] Nv dical NAL [address] [facility] 2021-08-23 2021-08-23 Outpatient R ADUM, [facility] [id number] Univers 11:00:00 11:00:00 SANDY itpool [facility] 2021-08-20 2021-08-20 Telephone Pcp, [facility] [id number] Univers 00:00:00 00:00:00 Patient [place] [id number] i ty of Does Not [facility] 4.2.7.2.686 [place] as Have A PROFESSIO [phone] Nv dical NAL [address] [facility] 2021-05-23 2021-05-23 [facility] [id number] Univers 09:30:00 09:30:00 SANDY ity [facility] 2021-05-15 2021-05-15 Outpatient R [facility] [id number] Univers 11:00:00 11:00:00 ity [facility] 2021-05-11 2021-05-11 Telephone Adum, [facility] [id number] Univers 00:00:00 00:00:00 Sandy L [place] [id number] ity of [place] 4.2.7.2.[place] [phone] Nv dical nal [address] [place] [address] 2021-05-02 2021-05-02 Hospital [facility] 1.2.840.114 [id number] Univers 10:00:00 23:59:00 Encounter Sandy L [place] [id number] ity of [place] [id number] [place] [phone] [facility] [address] [place] [address] 2021-05-02 2021-05-02 Outpatient R AD, [facility] [id number] Univers 00:00:00 00:00:00 SANDY ity [facility] 2021-03-12 2021-03-12 Outpatient [facility] [id number] Univers 15:30:00 15:30:00 YOSSI guevara o f [facility] 2021-02-09 2021-02-09 Office [facility] 1.2.840.114 [id number] 10:08:01 13:21:25 Visit Sandy L [place] 350.1.13.10 [place] 4.2.7.2.686 Professio [phone] nal [address] [place] [address] 2021-02-09 2021-02-09 Office Marianela, [facility] 1.2.840.114 [id number] Univers 10:08:01 13:21:25 Visit Sandy Oliver [id number] ity of [place] 4.2.7.2.[place] Profess[place] [phone] Nv dical [address] 2021-02-09 2021-02-09 Outpatient R MARIANELA [facility] [id number] Univers 10:00:00 10:00:00 SANDY itpool of [facility] 2021-02-09 2021-02-09 Orders Doctor MELANY 1.2.840.114 [id number] 00:00:00 00:00:00 Only Unassigned, MARCELINA [id number] [place] [facility] 4.2.7.2.686 [id number] 009 2021-02-09 2021-02-09 Orders Doctor MELANY 1.2.840.114 [id number] Univers 00:00:00 00:00:00 Only Unassigned, MARCELINA [id number] ity of [place] [facility] 4.2.7.2.686 [place] as [id number] [address] 2021-02-07 2021-02-07 Neuropsychology Medical Consultant Draw, Clc-Bls Lab [facility] 1.2.8 40.114 [id number] Univers 15:19:20 15:34:20 Visit Yossi [facility] [id number] ity of [place]2.7.2.686 [place] [phone] [facility] [address] 2021-02-07 2021-02-07 Office Lisbeth [facility] 1.2.840.114 [id number] Univers 14:39:19 15:09:19 Visit Yossi A Health 350.1.13.10 ity of [place] 4[place]2.7.2.686 [place] [phone] [facility] [address] 2021-02-07 2021-02-07 Outpatient R LISBETH [facility] [id number] Univers 14:30:00 14:30:00 [place] ity o f [facility] 2021-01-24 2021-01-24 Hospital [facility] 1.2.840.114 [id number] Univers 18:00:00 23:59:00 Encounter Sandy Walter Ariel [id number] ity of [place] 4.2.7.2.686 [place] [phone] [facility] [address] 2021-01-24 2021-01-24 Outpatient R [facility] [id number] Univers 00:00:00 00:00:00 SANDY itpool [facility] 2021-01-12 2021-01-12 Office [facility] 1.2.840.114 [id number] Univers 15:08:30 16:14:17 Visit Sandy Walter Ariel [id number] ity of [place] 4.2.7.2.686 [place] [facility] [phone] [facility] 134 [facility] 2021-01-12 2021-01-12 Outpatient R [facility] [id number] Univers 15:00:00 15:00:00 SANDY itpool [facility] 2021-01-12 2021-01-12 Orders Doctor MELANY 1.2.840.114 [id number] Univers 00:00:00 00:00:00 Only Unassigned, MARCELINA 350.1.13.10 ity of [place] [facility] 4.2.7.2.686 [place] as [phone] [facility] [address] 2020-12-15 2020-12-15 Telephone [facility] [id number] Univers 00:00:00 00:00:00 Ene Oliver 350.1.13.10 ity of [place] 4.2.7.2.[place] [phone] Nv dical nal [address] [facility] 2020-12-15 2020-12-15 Case [facility], [facility] 1.2.840.114 [id number] Univers 00:00:00 00:00:00 Management Ene Oliver 350.1.13.10 ity of [place] 4.2.7.2.686 [place] [phone] Nv dical nal 204 [facility] 2020-12-11 2020-12-11 Hospital [facility] [id number] Univers 10:30:00 23:59:00 Encounter Stephen Oliver 350.1.13.10 ity of [place] 4.2.7.2.686 [place] [phone] [address] 2020-12-11 2020-12-11 Outpatient [facility] [id number] Univers 00:00:00 00:00:00 STEPHEN ity [facility] 2020-12-04 2020-12-04 Neuropsychology Medical Consultant Aryan, Marlys Lab Main [facility] 1.2.8 40.114 [id number] Univers 12:18:25 12:33:25 Visit Ene De Paz 350.1.13.10 ity [facility] 4.2.7.2.686 [place] [phone] Nv dical [facility] 353 [facility] 2020-12-04 2020-12-04 Outpatient [facility] [id number] Univers 12:15:00 12:15:00 [facility] 2020-11-24 2020-11-24 Outpatient R [facility] [id number] Univers 00:00:00 00:00:00 STEPHEN ity [facility] 2020-11-17 2020-11-17 Outpatient R [facility] [id number] Univers 00:00:00 00:00:00 STEPHEN ity [facility] 2020-11-09 2020-11-09 Office [facility] 1.2.840.114 [id number] Univers 13:13:03 13:47:16 Visit Stephen Oliver 350.1.13.10 i ty of [place] 4.2.7.2.[place] [phone] Nv dical nal 204 [facility] 2020-11-09 2020-11-09 Outpatient [facility] [id number] Univers 13:00:00 13:00:00 STEPHEN ity [facility] 2020-11-09 2020-11-09 Orders Doctor MELANY 1.2.840.114 [id number] Univers 00:00:00 00:00:00 Only Unassigned, MARCELINA 350.1.13.10 ity of [place] [facility] 4.2.7.2.686 [place] as [phone] [address] 2020-09-25 2020-09-25 Outpatient [facility] [id number] Univers 09:30:00 09:30:00 STEPHEN ity [facility] 2020-07-31 2020-07-31 Outpatient R [facility] [id number] Univers 09:30:00 09:30:00 STEPHEN ity [facility] 2020-05-15 2020-05-15 Office [facility] 1.2.840.114 [id number] Univers 15:52:26 16:31:00 Visit Stephen Oliver 350.1.13.10 i ty of [place] 4.2.7.2.[place] [phone] Nv dic[address] 2020-05-15 2020-05-15 Outpatient [facility] [id number] Univers 16:15:00 16:15:00 STEPHEN ity [facility] 2020-03-06 2020-03-06 Outpatient R [facility] [id number] Univers 09:30:00 09:30:00 ity [facility] 2020-03-02 2020-03-02 Orders Doctor MOSLEY 1.2.840.114 [id number] Univers 00:00:00 00:00:00 Only Unassigned, MARCELINA 350.1.13.10 ity of [place] [facility] 4.2.7.2.686 [place] as [phone] [address] 2020-02-09 2020-02-09 Office [facility] [id number] Univers 14:46:23 15:52:57 Visit Carol Jones RESPIRATORY MEDICINE PHYSICIAN 350.1.13.10 it y of [facility] 4.2.7.2.686 [place] as MATERNAL [phone] Med ical & CHILD 107 [facility] 2020-02-09 2020-02-09 Outpatient R TJ [facility] [id number] Univers 14:30:00 14:30:00 CAROL guevara [facility] 2020-02-09 2020-02-09 Orders Doctor MELANY 1.2.840.114 [id number] Univers 00:00:00 00:00:00 Only Unassigned, MARCELINA 350.1.13.10 ity of [place] [facility] 4.2.7.2.686 [place] as [phone] [address] 2020-02-04 2020-02-04 Telephone [facility] 1.2.840.114 [id number] Univers 00:00:00 00:00:00 Stephen Oliver 350.1.13.10 i ty of [place] 4[place].2.[place] [phone] Nv dicnv nal 188 [facility] 2020-01-31 2020-01-31 Telephone [facility] 1.2.840.114 [id number] Univers 00:00:00 00:00:00 Stephen Ariel 350.1.13.10 i ty of [place] 4.2.7.2.[place] [phone] Nv dicnv nal 204 [facility] 2020-01-25 2020-01-25 Outpatient [facility] [id number] Univers 09:32:27 23:59:00 ENE guevara [facility] 2020-01-25 2020-01-25 [facility] 1.2.840.114 [id number] Univers 09:00:00 23:59:00 Encounter Ene Oliver 350.1.13.10 ity of [place] 4[place].2.[place] [phone] [facility] [address] 2019-11-24 2019-11-24 Orders Doctor MOSLEY 1.2.840.114 [id number] Univers 00:00:00 00:00:00 Only Unassigned, MARCELINA 350.1.13.10 ity of [place] [facility] 4.2.7.2.686 [place] as [phone] [address] 2019-11-18 2019-11-18 Telephone [facility] [id number] Univers 00:00:00 00:00:00 Ene Smith Ariel 350.1.13.10 ity of [place] 4[place].7.2.[place] [address] [phone] [facility] 377 [facility] 2019-11-16 2019-11-16 Telephone [facility] [id number] Univers 00:00:00 00:00:00 Ene mSith [place] 350.1.13.10 ity of [place] 4.2.7.2.[place] [phone] [address] 2019-09-27 2019-09-27 Office [facility] 1.2.840.114 [id number] Univers 09:00:38 11:30:09 Visit Rm, Adc Surg Spec Procedure [place] 3 50.1.13.10 ity of [place] 4.2.7.2.[place] [phone] [facility] 204 [facility] 2019-09-27 2019-09-27 Orders Doctor MELANY 1.2.840.114 [id number] Univers 00:00:00 00:00:00 Only Unassigned, MARCELINA 350.1.13.10 ity of [place] [facility] 4.2.7.2.686 [place] as [phone] [address] 2019-09-10 2019-09-10 Telephone [facility] 1.2.840.114 [id number] Univers 00:00:00 00:00:00 Stephen [place] 350.1.13.10 i ty of [place] 4.2.7.2.[place] [address] [phone] [facility] 204 [facility] 2019-09-09 2019-09-09 [facility] [id number] Univers 06:25:00 11:31:00 Encounter Stephen [place] 350.1.13.10 ity of [place] 4.2.7.2.686 [place] Surgical [phone] [facility] [address] 2019-09-09 2019-09-09 Orders Doctor MELANY 1.2.840.114 [id number] Univers 00:00:00 00:00:00 Only Unassigned, MARCELINA 350.1.13.10 ity of [place] [facility] 4.2.7.2.686 [place] as [phone] [facility] [address] 2019-09-08 2019-09-08 [facility] 1.2.840.114 [id number] Univers 10:15:00 23:59:00 Encounter Ene Smith Ariel 350.1.13.10 ity of [place] 4.2.7.2.686 [place] [phone] [facility] 802 [place] 2019-09-03 2019-09-03 Neuropsychology Medical Consultant Marlys Bae[facility] Main [facility] 1.2.8 40.114 [id number] Univers 14:41:10 14:56:10 Visit Stephen Quintanilla [id number] ity [id number] [phone] N[place] dical nal 353 [facility] 2019-09-03 2019-09-03 Orders Doctor MELANY [id number] Univers 00:00:00 00:00:00 Only Unassigned, MARCELINA [id number] ity of [place] [facility] [id number] [place] as [phone] [address] 2019-09-02 2019-09-02 Orders Doctor MELANY [id number] Univers 00:00:00 00:00:00 Only Unassigned, MARCELINA [id number] ity of [place] [facility] [id number] [place] [phone] [address] 2019-09-02 2019-09-02 Telephone [facility] [id number] Univers 00:00:00 00:00:00 Stephen Ariel [id number] i [id number] [phone] N[place] dical nal 204 [facility] 2019-08-31 2019-08-31 Prep For Zandra NMMATT [id number] Univers 00:00:00 00:00:00 Surgery Ene Oliver [id number] it[id number] [phone] Nv dical nal [address] [facility] 2019-08-31 2019-08-31 Case ALEXSANDER De Paz 1.2.840.114 [id number] Univers 00:00:00 00:00:00 Management Ene Oliver [id number] [id number] [phone] Nv dical nal [address] Results Test Test Test Comments Results Result Source Description Time Comments CT, CHEST WITH 2019-07- Reason for FINAL REPORT PATIENT ID: IV CONTRAST- PE 20 exam:->BACK [id number] TECHNIQUE: CT TEST DESIGN 06:01:00 PAINReason for [...] for FINAL REPORT PATIENT ID: 20 exam:->post [id number] EXAM: CT of the 04:08:00 ureteral abdomen and pelvis, with stentingReason for contrast CLINICAL exam:->SHORTNESS HISTORY: Abdominal pain OF BREATHIs the post ureteral stenting. patient TECHNIQUE: CT of the ?->NoWhat abdomen and pelvis was is the patient's performed with sedation intravenous contrast requirement?->No administration. This exam Sedation was performed according to our departmental dose [...] within 95-100% range.RAD, CHEST, 1 VIEW, NON [id number] 03:24:00Reason for exam:->BACK PAINReason for exam:->SHORTNESS OF BREATHIs the patient ?->NoShould this be performed at the bedside?->YesFINAL REPORT INDICATION: BACK PAINSHORTNESS OF BREATH COMPARISON: None TECHNIQUE: Single frontal view of the chest. FINDINGS: Lungs and pleura: Clear lungs. No effusion.Heart and me diastinum: Normal heart size. Unremarkable mediastinal contours.Osseous structures: No acute abnormality.Other: None. IMPRESSION: No acute intrathoracic abnormality. Signed: Bebeto Lawson MDReport Verified Date/Time: 08/06/2019 03:24:23 EN, [id number] 21:20:00 Test Item Value Reference Range Interpretation Comments TEST URINE (BEAKER) (test Negative code = 583) URINALYSIS W/ REFLEX URINE [id number] 21:19:00 Test Item Value Reference Range Interpretation [...] SOURCE(BEAKER) (test code = 2795) BASIC METABOLIC [id number] 21:18:00 Test Item Value Reference Range Interpretation [...] ESTIMATED GFR. CBC W/PLT COUNT & AUTO [id number] 21:07:00 Test Item Value Reference Range Interpretation [...] PERCENT (BEAKER) (test code = 2801) BLOOD [id number] 00:00:00 Test Item Value Reference Range Interpretation Comments CULTURE (BEAKER) (test No growth in 5 days code = 1095) BLOOD [id number] 00:00:00 Test Item Value Reference Range Interpretation Comments CULTURE (BEAKER) (test No growth in 5 days code = 1095) SCREEN, [id number] 07:02:00 Test Item Value Reference Range Interpretation Comments TEST URINE (BEAKER) (test Negative code = 583) BASIC METABOLIC [id number] 03:43:00 Test Item Value Reference Range Interpretation [...] ESTIMATED GFR. CBC W/PLT COUNT & AUTO [id number] 02:58:00 Test Item Value Reference Range Interpretation [...] (BEAKER) (test code = 2801) BASIC METABOLIC [id number] 06:50:00 Test Item Value Reference Range Interpretation [...] ESTIMATED GFR. CBC W/PLT COUNT & AUTO [id number] 04:00:00 Test Item Value Reference Range Interpretation [...] (BEAKER) (test code = 2801) U/S, RENAL, [id number] 02:21:00Reason for exam:->akiFINAL REPORT Renal ultrasound dated 07/23/2019 CLINICAL HISTORY: RANJANA, bilateral stent placement COMPARISON: None Comment: Real-time transabdominal renal ultrasound was performed. Right kidney measures 12.5 x 4.7 x 4.9 cm. Left kidney measures 11.3 x 6.6 x 5.3 cm. Right renal cortex measures 1.1 cm. Left renal cortex measures 1.7 cm. Renal parenchymal echogenicity: Normal There isno hydronephrosis. A nonobstructing stone is present in the mid to upper portion of the right renal collecting system, measuring 4 mm. A left-sided nonobstructing stone in the midportion measures 5 mm.No cyst is identified on either kidney. Doppler ultrasound demonstrates a patent main renal artery and vein bilaterally. The distal portions of bilateral ureteral stents are noted in the partially decompressed urinary bladder. Impression: Bilateral nonobstructing kidney stones. No hydronephrosis. Partially visualized ureteral stents in the urinary bladder. Signed: Apolinar Hidalgo MDReport Verified Date/Time: 07/24/2019 02:21:25 RAD, ABDOMEN/KUB, 1 VIEW [id number] 01:26:00Reason for exam:->stent positioningShould this be performed at the bedside?->YesFINAL REPORT CLINICAL HISTORY: Stent positioning COMPARISON: None. FINDINGS: 2 s upine views of the abdomen are submitted. Bilateral ureteral stents appear appropriately positioned.The abdominal bowel gas pattern is normal. There is no evidence of organomegaly or ascites. There isno acute bony abnormality. The lung bases are clear. Signed: Apolinar Hidalgo MDReport Verified Date/Time: 07/24/2019 01:26:46 W/PLT COUNT & AUTO [id number] 06:40:00 Test Item Value Reference Range Interpretation [...] (BEAKER) (test code = 2801) BASIC METABOLIC [id number] 06:32:00 Test Item Value Reference Range Interpretation [...] GFR. FL, FLUORO, NON-SPECIFIC, UP TO 1 [id number] 02:47:00Reason for exam:- >left ureteral stent placementFINAL REPORT Examination: Retrograde pyelography 75 fluoroscopic spot views were obtained during the procedure by the ordering service. Images are nondiagnostic as no radiologist wa s present at the time of imaging. Fluoroscopic time was not provided. Please see the procedure report for details. Signed: Apolinar Hidalgo MDRepdeaconess incarn[facility] Verified Date/Time: 07/23/2019 02:47:24 LACTIC ACID, [id number] 02:22:00 Test Item Value Reference Range Interpretation Comments LACTATE BLOOD VENOUS (2) (BEAKER) 1.0 mmol/L 0.5-2.2 (test code = 2872) LACTIC ACID, [id number] 23:42:00 Test Item Value Reference Range Interpretation Comments LACTATE BLOOD VENOUS (2) (BEAKER) 0.5 mmol/L 0.5-2.2 (test code = 2872) [id number] 22:29:00 Test Item Value Reference Range Interpretation Comments PROCALCITONIN (BEAKER) (test code 0.11 ng/mL <0.05 H = 3036) SEPSIS RISK (ng/mL)Low: 0.05-0.50Intermediate: 0.51-2.00High: >=2.01TROPONIN [id number] 22:25:00 Test Item Value Reference Range Interpretation [...] acute neurological disease, and persistent tachyarrhythmia.BASIC METABOLIC [id number] 22:23:00 Test Item Value Reference Range Interpretation [...] 1092) DATA TO CALCULA TE ESTIMATED GFR. [id number] 22:19:00 Test Item Value Reference Range Interpretation Comments MAGNESIUM (BEAKER) 1.9 mg/dL 1.6-2.6 Specimen slightly (test code = 627) hemolyzed URIC [id number] 22:19:00 Test Item Value Reference Range Interpretation Comments URIC ACID (BEAKER) 5.0 mg/dL 2.6-7.2 Specimen slightly (test code = 773) hemolyzed HEPATIC FUNCTION [id number] 22:19:00 Test Item Value Reference Range Interpretation [...] Specimen slightly (test code = 347) hemolyzed [id number] 22:19:00 Test Item Value Reference Range Interpretation Comments LIPASE (BEAKER) (test code = 749) 5 U/L 8-78 L LACTIC ACID, [id number] 22:15:00 Test Item Value Reference Range Interpretation Comments LACTATE BLOOD VENOUS (2) (BEAKER) 0.8 mmol/L 0.5-2.2 (test code = 2872) CBC W/PLT COUNT & AUTO [id number] 22:05:00 Test Item Value Reference Range Interpretation [...] (BEAKER) (test code = 2801) CREATININE, RANDOM [id number] 22:01:00 Test Item Value Reference Range Interpretation Comments CREATININE URINE (BEAKER) (test 99.2 mg/dL code = 375) Reference Range: No NormalsSODIUM, RANDOM [id number] 22:01:00 Test Item Value Reference Range Interpretation Comments SODIUM URINE (BEAKER) (test code = 85 meq/L 243) Reference Range: No NormalsURINALYSIS WITH MICROSCOPIC IF [id number] 21:59:00 Test Item Value Reference Range Interpretation [...] 463) SOURCE(BEAKER) (test code = 2795) URINALYSIS [id number] 21:59:00 Test Item Value Reference Range Interpretation Comments RBC UA (BEAKER) (test code = 519) 7 /HPF WBC UA (BEAKER) (test code = 520) 13 /HPF SQUAMOUS EPITHELIAL (BEAKER) (test 1 /HPF code = 516) YEAST (BEAKER) (test code = 1585) Rare SCREEN, [id number] 21:56:00 Test Item Value Reference Range Interpretation Comments TEST URINE (BEAKER) (test Negative code = 583)
[2022-07-19 15:10] LABS: Urine Blood 1+ (Negative); Urine Glucose Negative (Negative); Urine Protein 2+ (Negative); Urine Specific Gravity >=1.030 (1.005-1.030)
[2022-07-19] MEDS ORDERED: ONDANSETRON 4 MG/2 ML VIAL ONE (15:29)
[2022-07-19] MEDS ORDERED: MORPHINE 4 MG/ML SYR ONE (15:29)
[2022-07-19] MEDS ORDERED: NA CHLORIDE 0.9% 1,000 ML ONE (15:29)
[2022-07-19] MEDS ORDERED: FAMOTIDINE 20 MG/2 ML VIAL IV ONE (15:29)
[2022-07-19 16:04] LABS: Absolute Lymphocytes (CBC) 1.7 K/uL (0.7-4.9); Hematocrit 45.6 % (36.0-45.0); Lymphocytes % 17.6 % (15.3-44.8); MCV 89.1 fL (80-100); MPV 7.6 fL (7.6-11.3); RBC Red Blood Cell Count 5.11 M/uL (3.86-4.86)
[2022-07-19 16:14] LABS: Albumin 4.4 g/dL (3.4-5.0); Bilirubin Total 0.5 mg/dL (0.2-1.0); Potassium 3.9 mmol/L (3.5-5.1); Protein, Total 8.8 g/dL (6.4-8.2)
--- NOTE | 2022-07-19 16:50 | RAD REPORT ---
EXAM DESCRIPTION: CT - Stone Protocol - 07/19/2022 4:42 pm CLINICAL HISTORY: Flank pain. flank pain COMPARISON: Stone Protocol dated 12/28/2021; Transvaginal Study Probe dated 07/01/2022; Pelvis Comple te dated 12/29/2021; Transvaginal Study Probe dated 12/29/2021 TECHNIQUE: Axial images were obtained without oral or IV contrast. Lack of contrast limits solid org an and vascular assessment. The [id number]-bz-lmtm spans the entirety of the system partially obscuring uppermost abdomen and lung bases. Coronal reformatted images were obtained and reviewed. All CT scans are performed using dose optimization technique as appropriate and may include automated exposure control or mA/KV adjustment according to patient size. FINDINGS: The lower lung steinberg are clear. Imaged portions of the liver and spleen show no suspicious findings on non-contrast imaging. The panc reas and adrenal glands are normal. No pathologic lymphadenopathy in the abdomen or pelvis. Numerous small stones are present in the calices of both kidneys. No hydronephrosis. No bowel obstruction, free air, free fluid or abscess. Normal appendix noted.Large cystic appearing p elvic mass measuring 11 x 8 cm noted, recent ultrasound assessment favoring endometrioma. No significant bony abnormality. IMPRESSION: Bilateral nephrolithiasis is present without hydronephrosis. 11 cm cystic pelvic mass is present with recent sonographic workup demonstrating features suggesting an endometrioma.
[2022-07-19 17:42] LABS: Urine Blood 2+ (Negative); Urine Glucose Negative (Negative); Urine Protein 1+ (Negative); Urine Specific Gravity >=1.030 (1.005-1.030); Urine pH 5.5 (5.0-7.0)
[2022-07-19 18:09] LABS: Urine Mucus 2+ /HPF (None Seen)
--- NOTE | 2022-07-19 18:52 | RAD REPORT ---
EXAM DESCRIPTION: US - Abdomen Exam Limited - 07/19/2022 6:31 pm CLINICAL HISTORY: ABD PAIN COMPARISON: ABDOMINAL EXAM LIMITED dated 12/23/2013 FINDINGS: The gallbladder demonstrates no gallstones. No pericholecystic fluid or gallbladder wall t hickening. The common bile duct is normal measuring 2 mm. The liver demonstrates no findings of intrahepatic biliary dilatation. IMPRESSION: Unremarkable examination.
--- NOTE | 2022-07-19 19:16 | ER ---
Nurse's Notes [facility] Name: Joyce Duran Age: 42 yrs Sex: Female : 1980 Arrival Date: 07/19/2022 Time: 14:07 Bed Treatment Private MD: Diagnosis: Calculus of kidney-bilateral;Mass of Uterus Presentation: 07/19 14:41 Chief complaint: Patient states: right-sided upper and lower abdominal pain tht kb3 radiates into right flank and right groin x2 days with associated N/V. Pt diagnosed with uterine mass 2 weeks ago and awaiting [employer] Helper appointment on 07/31. Coronavirus screen: Vaccine status: Patient reports being unvaccinated. Client denies travel out of the [place] in the last 14 days. Ebola Screen: Patient negative for fever greater than or equal to 101.5 degrees Fahrenheit, and additional compatible Ebola Virus Disease symptoms Patient denies exposure to infectious person. Patient denies travel to an Ebola-affected area in the 21 days before illness onset. Initial Sepsis Screen: Does the patient meet any 2 criteria? No. Patient's initial sepsis screen is negative. Does the patient have a suspected source of infection? No. Patient's initial sepsis screen is negative. Risk Assessment: Do you want to hurt yourself or someone else? Patient reports no desire to harm self or others. Onset of symptoms was July 17, 2022. 14:41 Method Of Arrival: Ambulatory kb3 14:41 Acuity: PALLAVI 3 kb3 Triage Assessment: 14:44 General: Appears in no apparent distress. uncomfortable, Behavior is calm, cooperative. kb3 Pain: Complains of pain in right upper quadrant and right lower quadrant Pain radiates to right mid back, right low back and right femoral area Pain currently is 7 out of 10 on a pain scale. GI: Reports lower abdominal pain, upper abdominal pain, nausea, vomiting. 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 Last tetanus immunization: unknown. - Social history:: Smoking status: Patient reports the use of cigarette tobacco products, denies chronic smoking, but will smoke occasionally, Patient uses street drugs, marijuana. Screenin:55 Abuse screen: Denies threats or abuse. Denies injuries from another. Nutritional ss screening: No deficits noted. Tuberculosis screening: Never had TB. Fall Risk None identified. Assessment: 20:17 GI: tw5 Vital Signs: 14:41 BP 122 / 82; Pulse 127; Resp 24; Temp 98.6; Pulse Ox 100% ; Weight 75.3 kg; Height 5 kb3 ft. 2 in. (157.48 cm); Pain 7/10; 18:37 BP 128 / 81; Pulse 101; Resp 18; Temp 98.4; Pulse Ox 100% ; jh5 14:41 Body Mass Index 30.36 (75.30 kg, 157.48 cm) kb3 ED Course: 14:07 Patient arrived in ED. rg4 14:07 Jean Marie Royal PA is PHCP. cp 14:07 Josué Hurd MD is Attending Physician. cp 14:44 Triage completed. kb3 14:44 Arm band placed on right wrist. kb3 15:06 Eleanor Cummings, HUBERT is Primary Nurse. jh5 16:44 CT Stone Protocol In Process Unspecified. EDMS 18:33 US Abdomen Limited: gallbladder In Process Unspecified. EDMS 19:13 Serge Beltran MD is Referral Physician. cp 20:17 Patient has correct armband on for positive identification. tw5 20:17 No provider procedures requiring assistance completed. IV discontinued, intact, tw5 bleeding controlled, No redness/swelling at site. Pressure dressing applied. Administered Medications: 15:43 Drug: NS 0.9% 1000 ml Route: IV; Rate: 1 bolus; Site: right antecubital; jh5 15:43 Drug: Pepcid (famotidine) 20 mg Route: IVP; Site: right antecubital; jh5 15:43 Drug: Zofran (Ondansetron) 4 mg Route: IVP; Site: right antecubital; jh5 15:43 Drug: morphine 4 mg Route: IVP; Infused Over: 4 mins; Site: right antecubital; jh5 20:16 Drug: Phenergan (promethazine) 25 mg Route: IM; Site: Ventrogluteal LEFT; tw5 20:16 Follow up: Response: No adverse reaction; Medication administered at discharge. tw5 20:16 Drug: Ketorolac 30 mg Route: IVP; Site: right antecubital; tw5 20:16 Follow up: Response: No adverse reaction tw Medication: 20:17 VIS not applicable for this client. Outcome: 19:15 Discharge ordered by . yeni 20:17 Discharged to home ambulatory, with family. tw 20:17 Condition: good 20:17 Discharge instructions given to patient, Instructed on discharge instructions, follow up and referral plans. Demonstrated understanding of instructions, follow-up care, medications, Prescriptions given X 1. 20:17 Patient left the ED. 5 Signatures: Dispatcher [employer] EDRebeca Mauricio RN RN Jean Marie Smiley PA PA cp Garcia, Rubi rg4 Maria G Morris tw5 Eleanor Cummings RN RN jh5 Taniya Venegas RN RN kb3
--- NOTE | 2022-07-19 19:16 | EDPHYS ---
Physician Documentation [facility] Name: Joyce Duran Age: 42 yrs Sex: Female : 1980 Arrival Date: 07/19/2022 Time: 14:07 Bed Treatment Private MD: ED Physician Josué Hurd HPI: 07/19 15:15 This 42 yrs old Female presents to ER via Ambulatory with complaints of cp Abdominal Pain, Vomiting. 15:15 The patient presents with abdominal pain left flank and right flank pain. The symptoms cp radiate to back, abdomen. Associated signs and symptoms: Pertinent positives: nausea and vomiting. 15:15 Onset: The symptoms/episode began/occurred 2 day(s) ago. cp 15:15 Severity of pain: in the emergency department the pain is unchanged despite home cp interventions. Patient reports recent diagnosis of uterine mass and has appt with [facility] later this month. Denies vaginal bleeding. 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 Last tetanus immunization: unknown. - Social history:: Smoking status: Patient reports the use of cigarette tobacco products, denies chronic smoking, but will smoke occasionally, Patient uses street drugs, marijuana. ROS: 15:20 Constitutional: Negative for body aches, chills, fever, poor PO intake. cp 15:20 Eyes: Negative for injury, pain, redness, and discharge. cp 15:20 ENT: Negative for drainage from ear(s), ear pain, sore throat, difficulty swallowing, difficulty handling secretions. 15:20 Cardiovascular: Negative for chest pain, edema, palpitations. 15:20 Respiratory: Negative for cough, shortness of breath, wheezing. 15:20 Abdomen/GI: Positive for abdominal pain, nausea and vomiting, Negative for diarrhea, constipation, black/tarry stool, rectal bleeding. 15:20 Back: Positive for flank pain, bilaterally. 15:20 : Negative for urinary symptoms, vaginal bleeding, vaginal discharge. 15:20 Skin: Negative for rash. 15:20 Neuro: Negative for altered mental status, dizziness, headache, weakness. 15:20 All other systems are negative. Exam: 15:25 Constitutional: The patient appears in no acute distress, alert, awake, non-toxic, well cp developed, well nourished, uncomfortable. 15:25 Head/Face: Normocephalic, atraumatic. cp 15:25 Eyes: Periorbital structures: appear normal, Conjunctiva: normal, no exudate, no injection, Sclera: no appreciated abnormality, Lids and lashes: appear normal, bilaterally. 15:25 ENT: External ear(s): are unremarkable, Nose: is normal, Mouth: Lips: moist, Oral mucosa: moist, Posterior pharynx: Airway: no evidence of obstruction, patent. 15:25 Neck: ROM/movement: is normal, is supple, without pain, no range of motions limitations. 15:25 Chest/axilla: Inspection: normal. 15:25 Cardiovascular: Rate: tachycardic, Rhythm: regular, Edema: is not appreciated, JVD: is not appreciated. 15:25 Respiratory: the patient does not display signs of respiratory distress, Respirations: normal, no use of accessory muscles, no retractions, labored breathing, is not present, Breath sounds: are clear throughout, no decreased breath sounds, no stridor, no wheezing. 15:25 Abdomen/GI: Inspection: abdomen appears normal, Bowel sounds: active, all quadrants, Palpation: soft, in all quadrants, moderate abdominal tenderness, in the posterior aspect of right lateral abdomen, anterior aspect of right lateral abdomen, posterior aspect of left lateral abdomen, anterior aspect of left lateral abdomen, right upper quadrant and right lower quadrant, rebound tenderness, is not appreciated, involuntary guarding, is not appreciated. 15:25 Back: pain, that is moderate, of the mid back area, ROM is normal. 15:25 Skin: no rash present. 15:25 Neuro: Orientation: to person, place \T\ time. Mentation: is normal, Motor: moves all fours, strength is normal, Sensation: is normal. Vital Signs: 14:41 BP 122 / 82; Pulse 127; Resp 24; Temp 98.6; Pulse Ox 100% ; Weight 75.3 kg; Height 5 kb3 ft. 2 in. (157.48 cm); Pain 7/10; 18:37 BP 128 / 81; Pulse 101; Resp 18; Temp 98.4; Pulse Ox 100% ; jh5 14:41 Body Mass Index 30.36 (75.30 kg, 157.48 cm) kb3 MDM: 14:49 Patient medically screened. cp 16:00 Differential diagnosis: appendicitis, bowel obstruction, cholecystitis, Cholelithiasis, cp Endometriosis, gastritis, non-specific abd pain, pancreatitis, Pyelonephritis, Ureterolithiasis, urinary tract infection. 19:15 Data reviewed: vital signs, nurses notes, lab test result(s), radiologic studies, CT cp scan, ultrasound. 19:15 Counseling: I had a detailed discussion with the patient and/or guardian regarding: the cp historical points, exam findings, and any diagnostic results supporting the discharge/admit diagnosis, lab results, radiology results, to return to the emergency department if symptoms worsen or persist or if there are any questions or concerns that arise at home. Response to treatment: the patient's symptoms have mildly improved after treatment. Special discussion: Based on the patient's Hx, exam, and Dx evaluation, there is no indication for emergent surgery or inpatient Tx. It is understood by the patient/guardian that if the Sx's persist or worsen they need to return immediately for re-evaluation. ED course: Discussed results of labs and radiology studies. CT with noted uterine mass that patient is aware of. No acute surgical findings noted. Will discharge to home for continued monitoring. 07/19 15:10 Order name: Urine Dipstick-Ancillary; Complete Time: 16:15 EDUT 07/19 16:15 Interpretation: Normal except: UKET 1+; UBLD 1+; UPROT 2+. 07/19 15:11 Order name: CBC with Diff; Complete Time: 16:15 07/19 17:02 Interpretation: Normal except: RBC 5.11; HGB 15.2; HCT 45.6; RACQUEL% 74.1. 07/19 15:11 Order name: CMP; Complete Time: 16:15 cp 07/19 15:11 Order name: Lipase; Complete Time: 16:15 cp 07/19 15:11 Order name: Urine Microscopic Only; Complete Time: 18:13 07/19 18:14 Interpretation: Normal except: URBC 5-10. 07/19 15:11 Order name: Lactate w/ 2H reflex if indic.; Complete Time: 17:01 cp 07/19 15:24 Order name: Urine --Ancillary (enter results); Complete Time: 18:13 eb 07/19 16:16 Order name: CT Stone Protocol; Complete Time: 17:01 cp 07/19 17:03 Order name: US Abdomen Limited: gallbladder; Complete Time: 18:58 cp 07/19 18:58 Interpretation: Report reviewed. cp 07/19 17:42 Order name: Urine Dipstick-Ancillary; Complete Time: 18:13 EDMS 07/19 18:14 Interpretation: Normal except: UKET 2+; UBLD 2+; UPROT 1+. cp 07/19 15:11 Order name: IV Saline Lock; Complete Time: 15:44 cp 07/19 15:11 Order name: Labs collected and sent; Complete Time: 15:44 cp 07/19 15:11 Order name: Urine Dipstick-Ancillary (obtain specimen); Complete Time: 17:43 cp 07/19 15:11 Order name: Urine Test (obtain specimen); Complete Time: 17:43 cp 07/19 19:12 Order name: PO challenge; Complete Time: 20:10 cp Administered Medications: 15:43 Drug: NS 0.9% 1000 ml Route: IV; Rate: 1 bolus; Site: right antecubital; jh5 15:43 Drug: Pepcid (famotidine) 20 mg Route: IVP; Site: right antecubital; jh5 15:43 Drug: Zofran (Ondansetron) 4 mg Route: IVP; Site: right antecubital; jh5 15:43 Drug: morphine 4 mg Route: IVP; Infused Over: 4 mins; Site: right antecubital; jh5 20:16 Drug: Phenergan (promethazine) 25 mg Route: IM; Site: Ventrogluteal LEFT; tw5 20:16 Follow up: Response: No adverse reaction; Medication administered at discharge. tw5 20:16 Drug: Ketorolac 30 mg Route: IVP; Site: right antecubital; tw5 20:16 Follow up: Response: No adverse reaction tw5 Disposition Summary: 07/19/22 19:15 Discharge Ordered Location: Home cp Problem: new cp Symptoms: have improved cp Condition: Stable cp Diagnosis - Calculus of kidney - bilateral cp - Mass of Uterus cp Followup: cp - With: Serge Beltran MD - When: 2 - 3 days - Reason: kidney stones Followup: cp - With: Private Physician - When: primary [facility] [employer] [facility] - Reason: uterine mass Discharge Instructions: - Discharge Summary Sheet cp - Kidney Stones cp - Nausea and Vomiting, Adult cp Forms: - Medication Reconciliation Form cp - Thank You Letter cp - Antibiotic Education cp - Prescription Opioid Use cp Prescriptions: - Diclofenac Sodium 75 mg Oral Tablet Sustained Release - take 1 tablet by ORAL route 2 times per day; 30 tablet; Refills: 0, Product cp Selection Permitted - promethazine 25 mg Oral Tablet - take 1 tablet by ORAL route every 6 hours As needed; 20 tablet; Refills: 0, cp Product Selection Permitted Addendum: 07/23/2022 13:55 Co-signature as Attending Physician, Josué Hurd MD. r n Signatures: Dispatcher [employer] Josué Walker MD MD rn Page, Corey, PA PA cp Wood, Tiffany tw5 Eleanor Cummings RN RN jh5 Taniya Venegas RN RN kb3
[2022-07-19] MEDS ORDERED: PROMETHAZINE INJ 25 MG/ML AMP ONE (20:06)
[2022-07-19] MEDS ORDERED: KETOROLAC 30 MG/ML INJ ONE (20:07)
[2022-07-19 20:29] VITALS: O2SAT 100
[2022-07-19 20:31] VITALS: BP 128/81; TEMP 98.4
== END 2022-07-19 20:17 | disposition home or self-care (01) ==
LOC: ER 14:03
DX: N20.0 Calculus of kidney (principal); N85.8 Other specified noninflammatory disorders of uterus; F17.210 Nicotine dependence, cigarettes, uncomplicated; Z87.442 Personal history of urinary calculi
CPT/HCPCS: 85025; 36415; 81025; 83605; 83690; 80053; 76377; 74176; 76705; 96375; 96372; 96374; 99283; J2550; J7030; J2405; 81003; 81015

== ENCOUNTER 2022-10-11 05:00 | Emergency (ER) | payer OTHER ==
--- OUTSIDE RECORDS SUMMARY | 2022-10-11 05:05 | XMS REPORT | Continuity of Care Document ---
:1980 Author Organization [facility] t Address [address] [place] [address] Care Team Providers Name Role Phone Pcp, Patient Does Not Have A Primary Care Physician [phone] SANDY BEAR Attending Clinician Unavailable Sandy Bear MD Attending Clinician Pob, [facility] Main Attending Clinician Unavailable Doctor Unassigned, [place] Attending Clinician Unavailable Greg Quintanilla MD Attending Clinician GREG QUINTANILLA Attending Clinician Unavailable Only, Adc Test Attending Clinician Unavailable 2, [facility] Attending Clinician Unavailable Pcp, Patient Does Not Have A Attending Clinician [phone] LYNNE POTTER Attending Clinician Unavailable Draw, [facility]-Bls Lab Attending Clinician Unavailable Lynne Potter MD Attending Clinician Ene Webster Attending Clinician ENE DE PAZ Attending Clinician Unavailable Osmin Shen Attending Clinician OSMIN SPENCER Attending Clinician Unavailable , Adc Surg Spec Procedure Attending Clinician Unavailable HAYLEE ENG Attending Clinician Unavailable ELVIS MARRERO Attending Clinician Unavailable SANDY BEAR Admitting Clinician Unavailable Sandy Bear MD Admitting Clinician ENE DE PAZ Admitting Clinician Unavailable Iraj PAULINO, Greg Admitting Clinician ILAN CERDA Admitting Clinician Unavailable Payers Payer Name Policy Type Policy Number Effective Date Expiration Date Gopal deal FORMERLY [facility] [id number] 2019 CHOICE [place] STAR 00:00:00 Problems Condition [...] Added automatic ally from request for surgery [id number] Obesity Obesity Disease Active Univers (BMI (BMI 1-21 ity of 30-39.9) 30-39.9) 00:00: Medical Branch Cyst of Cyst of Disease Active Univers right right 6-25 ity of ovary ovary 00:00: 00 Medical Branch Cysts of Cysts of Disease [...] Added automatic ally from request for surgery [id number] Calculus Calculus Disease Active Overview: Un sol of kidney of kidney 1-14 Formattin i ty of 00:00: g of this [place] 00 note Medical might be Branch different from the original. Added automatic ally from request for surgery [id number] Ureteral Ureteral Disease Active Overview: Un sol stent stent 1-14 Formattin ity of retained retained 00:00: g of this [place] 00 note Medical might be Branch different from the original. Added automatic ally from request for surgery [id number] RANJANA (acute RANJANA (acute Disease Active 2018-[address] kidney kidney 2-06 [facility]) injury) 00:00: Medical 00 [place] Left Left Disease Active 2018-[address] [facility] ureteral ureteral 2-06 [facility] stone stone 00:00: Medical 00 [place] Renal Renal Disease Active 2018-[address] [facility] calculus, calculus, 2-06 [facility] bilateral bilateral 00:00: Medi aleksey 00 Center Leukocytos Leukocytos Disease Active 2018-[address] is is 2-06 [facility] 00:00: Medical 00 [place] Hyponatrem Hyponatrem Disease Active 2018-[address] ia ia 2-06 [facility] 00:00: Medical 00 [place] Sepsis Sepsis Disease Active 2018-[address] [facility] 2-05 [facility] 00:00: Medical 00 [place] Obstructiv Obstructiv Disease Active 2018-[address] e uropathy e uropathy 2-05 [facility] kes 00:00: Medical 00 [place] Tobacco Tobacco Disease Active Univers use use 6-17 ity of 00:00: [address] Allergies, Adverse Reactions, Alerts Allergy Allergy Status Severity Reaction(s) Onset Inactive Treating Comm ents Source Name Type Date Date Clinician NO KNOWN Drug Active Univers ALLERGIE Class ity of S [facility] NO KNOWN Allergy Active [facility] Social History Social Habit Start Date Stop Date Quantity Comments Source History of Cigarette Smoker Universi ty of tobacco use [facility] History SDOH [facility] Alcohol Std Medical Cente r Drinks History SDOH [facility] Alcohol Binge Medical Raciel [facility] History SDOH [facility] Alcohol Comment Medical C enter Exposure to 2022-09-22 2022-10-02 Not sure University of SARS-CoV-2 00:00:00 10:11:00 [facility] (event) Branch Alcohol intake 2019-08-05 2019-08-05 [facility]00 [facility] alcohol [facility] (finding) Tobacco Comment 2019-07-25 2019-07-25 since [address] [facility] 00:[facility]00 [facility] Center Tobacco use and 2019-07-25 2019-07-[address] [facility] Merlyn kes exposure 00:00:00 00:00:00 Medical Center History SDOH 2019-07-25 2019-07-[address] [facility] Alcohol Frequency 00:00:00 00:00:00 Medical Center Sex Ass[birth year] At [birth year] BENITO Osullivan 00:00:00 00:00:00 Medical Center Smoking Status Start Date Stop Date Source Occasional tobacco 2022-09-25 00:00:00 [facility] smoker Medical Branch Former smoker 2019-07-25 00:00:00 2019-07-[address] [facility] 00:00:00 Center Medications Ordered Filled Start Stop Current Ordering Indication Dosage Frequency Signature Comments Components Source Medication Medication Date Date Medication? Clinician (SIG) Name Name lactated Yes 1000mL at 100 Unive rs ringers IV 2-23 mL/hr, ity of infusion 19:15: 1[place]000 [place] 1[place] 00 IV Medical Infusion, Branch CONTINUOUS , Starting on Maggy 10/10/22 at 1315, Until Discontinu ed, Routine, PACU HYDROcodone 2022- No 1{tbl} 1 tablet, Univers -acetaminop 10-10 Oral, ity of hen (NORCO 19:15: 20:35 ONCE, 1 [place] 5) 5-325 mg 00 :00 dose, On Medi aleksey tablet 1 Maggy Branch tablet 10/10/22 at 1315, Routine, PACU HYDROmorphO Yes .2mg 0.2 mg, Uni vers ne 10-10 Slow IV ity of (DILAUDID) 19:02: Push, [place] injection 25 Q5MIN PRN, Medi aleksey 0.2 mg 10 doses, Branch Starting on Maggy 10/10/22 at 1302, Until Discontinu ed, Routine, Pain (scale 7-10), PACU
Us e approved by (Faculty): PACU USE -ANESTHESI A SERVICE-HY DROMORPHON E INJECTIONS FENTanyl PF Yes 25ug 25 mcg, Uni vers (SUBLIMAZE -23 Slow IV ity of (PF)) 19:02: Push, [place] injection 25 Q5MIN PRN, Medi aleksey 25 mcg 4 doses, Branch Starting on Maggy 10/10/22 at 1302, Until Discontinu ed, Routine, Pain (scale 4-6), PACU ondansetron 2022- No 4mg 4 mg, Slow Univers (ZOFRAN 10-10 IV Push, ity of (PF)) 19:02: 20:16 PRN, 1 [place] injection 4 25 :00 dose, Medical mg Starting Branch on Maggy 10/10/22 at 1302, Until Discontinu ed, Routine, Nausea and Vomiting (N/V), PACU bupivacaine 0 Yes PRN, Univer s (preserv 10-10 Starting ity of free) 18:46: on Maggy [place] (SENSORCAIN 00 10/10/22 at Md dical E MPF) 0.25 1246, Branch % (2.5 Until mg/mL) Discontinu injection ed, Routine, Intra-op acetaminoph Yes Take by Uni vers en (TYLENOL 10-10 mouth. ity of ORAL) 15:24: [place] 22 Medical Branch lactated 0 2022- No 1000mL at 42 [facility] rs ringers IV 10-10 mL/hr, ity of infusion 14:45: 14:52 1,000 mL, [place] 1,000 mL 00 :00 IV Medical Infusion, Branch ONCE, 1 dose, On Maggy 10/10/22 at 0845, Routine, DSU Pre-op Lactobacill 2022-0 2022- No Take by Un sol us 10-10 mouth. ity of acidophilus 13:12: 00:00 [place] (PROBIOTIC 51 :00 Medical ORAL) Branch traMADoL 50 2022-0 2022- No 50mg Take 50 mg Univers mg tablet 10-10 by mouth ity o f 13:12: 00:00 every 8 [place] 51 :00 (eight) Medical hours as Branch needed for Pain (scale 4-6). Ibuprofen 2022-0 2022- No Take by Univ ers 200 mg 10-10 mouth. ity of capsule 13:12: 00:00 [place] 51 :00 Medical Branch ibuprofen 2022-0 Yes [id number] 800mg Take 1 Univers 800 mg 10-10 [id number] tablet by ity of tablet 00:00: mouth [place] 00 every 8 Medical (eight) Branch hours as needed (Pain). HYDROcodone 0 Yes [id number] 1{tbl} Take 1 Un sol -acetaminop 10-10 tablet by ity of hen 5-325 00:00: mouth [place] mg tablet 00 every 6 Medical (six) Branch hours as needed for Pain (scale 7-10) or Pain (scale 4-6). Indication s: acute pain Lactobacill 2022-0 Yes Take by Uni vers us 2-15 mouth. ity of acidophilus 15:50: [place] (PROBIOTIC 52 Medical ORAL) Branch traMADoL 50 2022-0 Yes 50mg Take 50 mg Univers mg tablet 2-15 by mouth ity of 15:50: every 8 [place] [address] (eight) Medical hours as Branch needed for Pain (scale 4-6). acetaminoph 2022-0 Yes Take by Uni vers en (TYLENOL 2-15 mouth. ity of ORAL) 15:50: [place] [address] Medical Branch Ibuprofen 2022-0 Yes Take by Unive rs 200 mg 2-15 mouth. ity of capsule 15:50: [address] Branch Lactobacill 2022-0 Yes Take by Uni vers us 2-15 mouth. ity of acidophilus 15:50: [place] (PROBIOTIC 52 Medical ORAL) Branch traMADoL 50 0 Yes 50mg Take 50 mg Univers mg tablet 2-15 by mouth ity of 15:50: every 8 [place] [address] (eight) Medical hours as Branch needed for Pain (scale 4-6). acetaminoph 2022-0 Yes Take by Uni vers en (TYLENOL 2-15 mouth. ity of ORAL) 15:50: [address] Branch Ibuprofen 2022-0 Yes Take by Unive rs 200 mg 2-15 mouth. ity of capsule 15:50: [address] Branch acetaminoph 2022-0 Yes Take by Uni vers en (TYLENOL 2-08 mouth. ity of ORAL) 10:47: [address] Ibuprofen 2022-0 Yes Take by Unive rs 200 mg 2-08 mouth. ity of capsule 10:47: [address] Branch acetaminoph 2022-0 Yes Take by Uni vers en (TYLENOL 2-08 mouth. ity of ORAL) 10:47: [address] Ibuprofen 2022-0 Yes Take by Unive rs 200 mg 2-08 mouth. ity of capsule 10:47: [address] acetaminoph 2022-0 Yes Take by Uni vers en (TYLENOL 2-08 mouth. ity of ORAL) 10:47: [address] Ibuprofen 2022-0 Yes Take by Unive rs 200 mg 2-08 mouth. ity of capsule 10:47: [place] 47 Medical Branch Lactobacill 2021-08 Yes Take by Uni vers us 2-14 mouth. ity of acidophilus 10:24: [place] (PROBIOTIC 41 Medical ORAL) Branch traMADoL 50 2021-08 Yes 50mg Take 50 mg Univers mg tablet 2-14 by mouth ity of 10:24: every 8 [place] 41 (eight) Medical hours as Branch needed for Pain (scale 4-6). Lactobacill 2021-08 Yes Take by Uni vers us 2-14 mouth. ity of acidophilus 10:24: [place] (PROBIOTIC 41 Medical ORAL) Branch traMADoL 50 2021-08 Yes 50mg Take 50 mg Univers mg tablet 2-14 by mouth ity of 10:24: every 8 [place] 41 (eight) Medical hours as Branch needed for Pain (scale 4-6). Lactobacill 2021-08 Yes Take by Uni vers us 2-14 mouth. ity of acidophilus 10:24: [place] (PROBIOTIC 41 Medical ORAL) Branch traMADoL 50 2021-08 Yes 50mg Take 50 mg Univers mg tablet 2-14 by mouth ity of 10:24: every 8 [place] 41 (eight) Medical hours as Branch needed for Pain (scale 4-6). Lactobacill 2021-08 Yes Take by Uni vers us 2-14 mouth. ity of acidophilus 10:24: [place] (PROBIOTIC 41 Medical ORAL) Branch traMADoL 50 2021-08 Yes 50mg Take 50 mg Univers mg tablet 2-14 by mouth ity of 10:24: every 8 [place] 41 (eight) Medical hours as Branch needed for Pain (scale 4-6). Lactobacill 2021-08 Yes Take by Uni vers us 2-14 mouth. ity of acidophilus 10:24: [place] (PROBIOTIC 41 Medical ORAL) Branch traMADoL 50 2021-08 Yes 50mg Take 50 mg Univers mg tablet 2-14 by mouth ity of 10:24: every 8 [place] 41 (eight) Medical hours as Branch needed for Pain (scale 4-6). Lactobacill 2021-08 Yes Take by Uni vers us 2-14 mouth. ity of acidophilus 10:24: [place] (PROBIOTIC 41 Medical ORAL) Branch traMADoL 50 2021-08 Yes 50mg Take 50 mg Univers mg tablet 2-14 by mouth ity of 10:24: every 8 [place] 41 (eight) Medical hours as Branch needed for Pain (scale 4-6). Lactobacill 2021-08 Yes Take by Uni vers us 2-14 mouth. ity of acidophilus 10:24: [place] (PROBIOTIC 41 Medical ORAL) Branch traMADoL 50 2021-08 Yes 50mg Take 50 mg Univers mg tablet 2-14 by mouth ity of 10:24: every 8 [place] 41 (eight) Medical hours as Branch needed for Pain (scale 4-6). Lactobacill 2021-08 Yes Take by Uni vers us 2-14 mouth. ity of acidophilus 10:24: [place] (PROBIOTIC 41 Medical ORAL) Branch traMADoL 50 2021-08 Yes 50mg Take 50 mg Univers mg tablet 2-14 by mouth ity of 10:24: every 8 [place] 41 (eight) Medical hours as Branch needed for Pain (scale 4-6). Lactobacill 2021-08 Yes Take by Uni vers us 2-14 mouth. ity of acidophilus 10:24: [place] (PROBIOTIC 41 Medical ORAL) Branch traMADoL 50 2021-08 Yes 50mg Take 50 mg Univers mg tablet 2-14 by mouth ity of 10:24: every 8 [place] 41 (eight) Medical hours as Branch needed for Pain (scale 4-6). Lactobacill 2021-08 Yes Take by Uni vers us 2-14 mouth. ity of acidophilus 10:24: [place] (PROBIOTIC 41 Medical ORAL) Branch traMADoL 50 2021-08 Yes 50mg Take 50 mg Univers mg tablet 2-14 by mouth ity of 10:24: every 8 [place] 41 (eight) Medical hours as Branch needed for Pain (scale 4-6). Lactobacill 2021-08 Yes Take by Uni vers us 2-14 mouth. ity of acidophilus 10:24: [place] (PROBIOTIC 41 Medical ORAL) Branch traMADoL 50 2021-08 Yes 50mg Take 50 mg Univers mg tablet 2-14 by mouth ity of 10:24: every 8 [place] 41 (eight) Medical hours as Branch needed for Pain (scale 4-6). Lactobacill 2021-08 Yes Take by Uni vers us 2-14 mouth. ity of acidophilus 10:24: [place] (PROBIOTIC 41 Medical ORAL) Branch traMADoL 50 2021-08 Yes 50mg Take 50 mg Univers mg tablet 2-14 by mouth ity of 10:24: every 8 [place] 41 (eight) Medical hours as Branch needed for Pain (scale 4-6). fabio 2021-08 Yes [id number] .35mg Take 1 Univers ne 0.35 mg 2-14 [id number] tablet by it y of tablet 00:00: mouth in [place] the Medical morning. Carla mccarthy 2021-08 Yes [id number] .35mg Take 1 Univers ne 0.35 mg 2-14 [id number] tablet by it y of tablet 00:00: mouth in [place] the Medical morning. Carla mccarthy 2021-08 Yes [id number] .35mg Take 1 Univers ne 0.35 mg 2-14 [id number] tablet by it y of tablet 00:00: mouth in [place] the Medical morning. Carla mccarthy 2021-08 Yes [id number] .35mg Take 1 Univers ne 0.35 mg 2-14 [id number] tablet by it y of tablet 00:00: mouth in [place] the Medical morning. Carla mccarthy 2021-08 Yes [id number] .35mg Take 1 Univers ne 0.35 mg 2-14 [id number] tablet by it y of tablet 00:00: mouth in [place] the Medical morning. Carla mccarthy 2021-08 Yes [id number] .35mg Take 1 Univers ne 0.35 mg 2-14 [id number] tablet by it y of tablet 00:00: mouth in [place] the Medical morning. Carla mccarthy 2021-08 Yes [id number] .35mg Take 1 Univers ne 0.35 mg 2-14 [id number] tablet by it y of tablet 00:00: mouth in [place] the Medical morning. Carla mccarthy 2021-08 Yes [id number] .35mg Take 1 Univers ne 0.35 mg 2-14 [id number] tablet by it y of tablet 00:00: mouth in [place] the Medical morning. Carla mccarthy 2021-08 Yes [id number] .35mg Take 1 Univers ne 0.35 mg 2-14 [id number] tablet by it y of tablet 00:00: mouth in [place] the Medical morning. Carla mccarthy 2021-08 Yes [id number] .35mg Take 1 Univers ne 0.35 mg 2-14 [id number] tablet by it y of tablet 00:00: mouth in [place] the Medical morning. Carla mccarthy 2021-08 Yes [id number] .35mg Take 1 Univers ne 0.35 mg 2-14 [id number] tablet by it y of tablet 00:00: mouth in [place] 00 the Medical morning. Branch norethindro 2021- Yes [id number] .35mg Take 1 Univers ne 0.35 mg 2-14 [id number] tablet by it y of tablet 00:00: mouth in [place] the Medical morning. Branch norethindro 2021- Yes [id number] .35mg Take 1 Univers ne 0.35 mg 2-14 [id number] tablet by it y of tablet 00:00: mouth in [place] the Medical morning. Branch norethindro 2021- Yes [id number] .35mg Take 1 Univers ne 0.35 mg 2-14 [id number] tablet by it y of tablet 00:00: mouth in [place] the Medical morning. Branch norethindro 2021- Yes [id number] .35mg Take 1 Univers ne 0.35 mg 2-14 [id number] tablet by it y of tablet 00:00: mouth in [place] the Medical morning. Branch Lactobacill Yes Take by Uni vers us 5-19 mouth. ity of acidophilus 14:27: [place] (PROBIOTIC 44 Medical ORAL) Branch traMADoL 50 Yes 50mg Take 50 mg Univers mg tablet 5-19 by mouth ity of 14:27: every 8 [place] [address] (eight) Medical hours as Branch needed for Pain (scale 4-6). Lactobacill 0 Yes Take by Uni vers us 5-19 mouth. ity of acidophilus 14:27: [place] (PROBIOTIC 44 Medical ORAL) Branch traMADoL 50 0 Yes 50mg Take 50 mg Univers mg tablet 5-19 by mouth ity of 14:27: every 8 [place] [address] (eight) Medical hours as Branch needed for Pain (scale 4-6). Lactobacill 0 Yes Take by Uni vers us 5-19 mouth. ity of acidophilus 14:27: [place] (PROBIOTIC 44 Medical ORAL) Branch traMADoL 50 0 Yes 50mg Take 50 mg Univers mg tablet 5-19 by mouth ity of 14:27: every 8 [place] [address] (eight) Medical hours as Branch needed for Pain (scale 4-6). LINZESS 290 0 Yes Univer s mcg Cap 6-21 ity of 00:00: [place] 00 Medical Branch LINZESS 290 2021-0 Yes Univer s mcg Cap 6-21 ity of 00:00: [place] 00 Medical Branch LINZESS 290 2021-0 Yes Univer s mcg Cap 6-21 ity of 00:00: [place] 00 Medical Branch LINZESS 290 2021-0 Yes Univer s mcg Cap 6-21 ity of 00:00: [place] 00 Medical Branch LINZESS 290 2021-0 Yes Univer s mcg Cap 6-21 ity of 00:00: [place] 00 Medical Branch LINZESS 290 2021-0 Yes Univer s mcg Cap 6-21 ity of 00:00: [place] 00 Medical Branch LINZESS 290 2021-0 Yes Univer s mcg Cap 6-21 ity of 00:00: [place] 00 Medical Branch LINZESS 290 2021-0 Yes Univer s mcg Cap 6-21 ity of 00:00: [place] 00 Medical Branch LINZESS 290 2021-0 Yes Univer s mcg Cap 6-21 ity of 00:00: [place] 00 Medical Branch LINZESS 290 2021-0 Yes Univer s mcg Cap 6-21 ity of 00:00: [place] 00 Medical Branch LINZESS 290 2021-0 Yes Univer s mcg Cap 6-21 ity of 00:00: [place] 00 Medical Branch LINZESS 290 2021-0 Yes Univer s mcg Cap 6-21 ity of 00:00: [place] 00 Medical Branch LINZESS 290 2021-0 Yes Univer s mcg Cap 6-21 ity of 00:00: [place] 00 Medical Branch LINZESS 290 2021-0 Yes Univer s mcg Cap 6-21 ity of 00:00: [place] 00 Medical Branch LINZESS 290 2021-0 Yes Univer s mcg Cap 6-21 ity of 00:00: [place] 00 Medical Branch LINZESS 290 2021-0 Yes Univer s mcg Cap 6-21 ity of 00:00: [place] 00 Medical Branch LINZESS 290 2021-0 Yes Univer s mcg Cap 6-21 ity of 00:00: [place] 00 Medical Branch LINZESS 290 2021-0 2023- No Unive rs mcg Cap 6-21 02-23 ity of 00:00: 00:00 [place] 00 :00 Medical Branch famotidine 2021-0 Yes Univers 20 mg 5-09 ity of tablet 00:00: [place] Medical Branch famotidine 2020-0 Yes Univers 20 mg 5-09 ity of tablet 00:00: [place] [facility] Branch famotidine 2020-0 Yes Univers 20 mg 5-09 ity of tablet 00:00: [place] [facility] famotidine 2020-0 Yes Univers 20 mg 5-09 ity of tablet 00:00: [place] [facility] famotidine 2020-0 Yes Univers 20 mg 5-09 ity of tablet 00:00: [place] [facility] famotidine 2020-0 Yes Univers 20 mg 5-09 ity of tablet 00:00: [place] [facility] famotidine 2020-0 Yes Univers 20 mg 5-09 ity of tablet 00:00: [place] [facility] famotidine 2020-0 Yes Univers 20 mg 5-09 ity of tablet 00:00: [place] [facility] famotidine 2020-0 Yes Univers 20 mg 5-09 ity of tablet 00:00: [place] [facility] famotidine 2020-0 Yes Univers 20 mg 5-09 ity of tablet 00:00: [place] [facility] famotidine 2020-0 Yes Univers 20 mg 5-09 ity of tablet 00:00: [place] [facility] famotidine 2020-0 Yes Univers 20 mg 5-09 ity of tablet 00:00: [place] [facility] famotidine 2020-0 Yes Univers 20 mg 5-09 ity of tablet 00:00: [place] [facility] famotidine 2020-0 Yes Univers 20 mg 5-09 ity of tablet 00:00: [place] [facility] famotidine 2020-0 Yes Univers 20 mg 5-09 ity of tablet 00:00: [address] famotidine 2020-0 Yes Univers 20 mg 5-09 ity of tablet 00:00: [address] famotidine 2020-0 Yes Univers 20 mg 5-09 ity of tablet 00:00: [address] famotidine 2020-0 Yes Univers 20 mg 5-09 ity of tablet 00:00: [address] ranitidine 2019-1 Yes 150mg Take [address] (ZANTAC) 2-09 mg by [facility] 150 MG 19:54: mouth 2 Medical tablet 17 (two) Center times daily as needed for Heartburn. ranitidine 2018-1 Yes 150mg Take [address] (ZANTAC) 2-09 mg by Ary 150 MG 19:54: mouth 2 Medical tablet 17 (two) Center times daily as needed for Heartburn. Vital Signs Vital Name Observation Time Observation Value Comments Source Respiratory rate 2022-10-10 21:01:00 11 /min [facility] Systolic blood 2022-10-10 21:00:00 129 mm[Hg] Univer sity of [facility] Diastolic blood 2022-10-10 21:00:00 84 mm[Hg] Unive rsity of [facility] Heart rate 2022-10-10 21:00:00 89 /[facility] Oxygen saturation in 2022-10-10 21:00:00 99 /min [facility] Arterial blood by [facility] Pulse oximetry Branch Body temperature 2022-10-10 19:04:00 36.56 [place] [facility] Body height 2022-10-02 22:00:00 157.5 cm Universi ty [facility] [place] [facility] Body weight 2022-10-02 22:00:00 70.308 kg Universi ty [facility] [place] [facility] BMI 2022-10-02 22:00:00 28.35 kg/m2 Universi ty [facility] [place] [facility] Systolic blood 2022-09-25 16:45:00 132 mm[Hg] Univer sity of [facility] Diastolic blood 2022-09-25 16:45:00 89 mm[Hg] Unive rsity of [facility] Heart rate 2022-09-25 16:45:00 72 /min Universi ty [facility] [place] [facility] Body temperature 2022-09-25 16:45:00 36.72 [place] [facility] Res[facility] rate 2022-09-25 16:45:00 16 /min [facility] Body height 2022-09-25 16:45:00 157.5 cm Universi ty [facility] [place] [facility] Body weight 2022-09-25 16:45:00 70.716 kg Universi ty [facility] [place] [facility] BMI 2022-09-25 16:45:00 28.51 kg/m2 Universi ty [facility] [place] [facility] Systolic blood 2022-08-30 16:45:00 117 mm[Hg] Univer sity of pressure [place] [facility] Diastolic blood 2022-08-30 16:45:00 87 mm[Hg] Unive rsity of pressure [place] [facility] Heart rate 2022-08-30 16:39:00 93 /min Universi ty of [place] [facility] Body temperature 2022-08-30 16:39:00 36.89 [place] Univ ersity of [place] [facility] Respiratory rate 2022-08-30 16:39:00 18 /min Univ ersity of [place] [facility] Body height 2022-08-30 16:39:00 157.5 cm Universi ty of [place] [facility] Body weight 2022-08-30 16:39:00 73.029 kg Universi ty of [place] [facility] BMI 2022-08-30 16:39:00 29.45 kg/m2 Universi ty of [place] [facility] Systolic blood 2022-07-31 16:24:00 123 mm[Hg] Univer sity of pressure [place] [facility] Diastolic blood 2022-07-31 16:24:00 81 mm[Hg] Unive rsity of pressure [place] [facility] Heart rate 2022-07-31 16:24:00 102 /min Universi ty of [place] [facility] Body temperature 2022-07-31 16:24:00 36.89 [place] Univ ersity of [place] [facility] Respiratory rate 2022-07-31 16:24:00 18 /min Univ ersity of [place] [facility] Body height 2022-07-31 16:24:00 160 cm Universi ty of [place] [facility] Body weight 2022-07-31 16:24:00 73.936 kg Universi ty of [place] [facility] BMI 2022-07-31 16:24:00 28.87 kg/m2 Universi ty of [place] [facility] Systolic blood 2022-01-03 19:26:00 132 mm[Hg] Univer sity of pressure [place] [facility] Diastolic blood 2022-01-03 19:26:00 86 mm[Hg] Unive rsity of pressure [place] [facility] Heart rate 2022-01-03 19:26:00 93 /min Universi ty of [place] [facility] Body temperature 2022-01-03 19:26:00 36.94 [place] Univ ersity of [place] [facility] Respiratory rate 2022-01-03 19:26:00 18 /min [facility] Body height 2022-01-03 19:26:00 157.5 cm [facility] Body weight 2022-01-03 19:26:00 73.936 kg [facility] BMI 2022-01-03 19:26:00 29.81 kg/m2 [facility] Procedures Procedure Date / Time Performing Clinician Source Performed US PELVIS COMPLETE WITH 2022-10-02 16:55:01 AdSandy jaramillo [facility] TRANSVAGINAL [facility] DISCLOSURE AND CONSENT, 2022-09-25 06:01:00 Doctor Unassigned, N o [facility] AND SURGICAL [facility] PROCEDURES DSU PRE-OP 2022-09-25 06:01:00 [facility] 2022-08-30 06:01:00 Doctor Unassigned, No [facility] SURGICAL [facility] Bran h PROCEDURES - FEMALM POCT TEST 2022-08-30 00:00:00 Sandy Bear [facility] EXTERNAL PROVIDER 2022-08-21 06:01:00 Doctor Unassigned, No [facility] Plan of Care Planned Activity Planned Date Details Comments Source Future Scheduled 2022-04-[address] [facility] Test 00:00:00 (#1) [code = [facility] INFLUENZA VACCINE (#1)] Future Scheduled 2021-08-[address] [facility] Test 00:00:00 (12+) [code = [facility] DEPRESSION SCREENING (12+)] Future Scheduled 2020-08-[address] [facility] Test 00:00:00 [facility] Screening (12+) [code = Tobacco Cessation Counseling and Screening (12+)] Future Scheduled [address] Test 00:00:00 malignant neoplasm of [facility] cervix (procedure) [code = 841394444] Future Scheduled 2001 DTAP/TDAP/TD VACCINES CH I [...] Date/Time Type Type Clinicians Facility Department ID 2022-10-23 2022-10-23 [facility] [id number] Univers 11:00:00 11:00:00 [facility] 2022-10-10 2022-10-10 [facility] [id number] Univers 08:38:00 15:24:00 [facility] 2022-10-10 2022-10-10 Hospital [facility] 1.2.840.114 [id number] Univers 08:38:00 15:24:00 Encounter [facility] [place] [id number] [facility] [address] 2022-10-09 2022-10-09 [facility] [id number] Univers 08:00:00 08:00:00 [facility] 2022-10-08 2022-10-08 School Child Care Attendant Aryan, Marlys Lab Main [facility] 1.2.8 40.114 [id number] Univers 11:00:00 11:15:00 Visit [facility].1.13.10 [facility] [place] [phone] Md dical NAL [address] BUILDING 2022-10-08 2022-10-08 [facility] [id number] Univers 11:00:00 11:00:00 SANDY [facility] 2022-10-02 2022-10-02 [facility] [id number] Univers 10:12:31 23:59:00 [facility] 2022-10-02 [facility] 1.2.840.114 [id number] Univers 09:45:00 23:59:00 Encounter Sandy Walter BENITO 350.1.13.10 ity [facility] 4.2.7.2.686 [facility] [id number] [facility] [address] 2022-09-26 2022-09-26 [facility] 1.2.840.114 [id number] Univers 00:00:00 00:00:00 Sandy L SARINA 350.1.13.10 i ty of [facility] [facility] [id number] [facility] [address] 2022-09-25 2022-09-25 [facility] [id number] Univers 10:30:00 11:10:25 SANDY guevara [facility] 2022-09-25 2022-09-25 [facility] 1.2.698.257 [id number] Univers 10:30:00 11:10:25 Visit Sandy Jose Angel SARINA 350.1.13.10 i ty of WOMEN'S 4.2.7.2.686 [facility] [id number] [address] 2022-09-24 2022-09-24 Telephone [facility] 1.2.142.142 [id number] Univers 00:00:00 00:00:00 Sandy Jose Angel OLIVER 350.1.13.10 ity [facility] [place] [phone] Md dic[address] 2022-09-16 2022-09-16 [facility] 1.2.907.183 [id number] Univers 00:00:00 00:00:00 Sandy OLIVER 350.1.13.10 ity [facility] [place] [phone] Md dical [address] 2022-08-30 2022-08-30 Out[facility] [id number] Univers 10:00:00 13:59:12 SANDY guevara [facility] 2022-08-30 2022-08-30 Office Adum, [facility] 1.2.840.114 [id number] Univers 10:00:00 13:59:12 Visit Sandy OLIVER 350.1.13.10 ity of [place] [id number] Md dical [address] 2022-08-30 2022-08-30 Orders Doctor MELANY 1.2.840.114 [id number] Univers 00:00:00 00:00:00 Only Unassigned, MARCELINA 350.1.13.10 ity of [place] [facility] 4.2.7.2.686 [place] as [phone] [address] 2022-08-21 2022-08-21 Orders Doctor MELANY 1.2.840.114 [id number] Univers 00:00:00 00:00:00 Only Unassigned, MARCELINA 350.1.13.10 ity of [place] [facility] 4.2.7.2.686 [place] as [phone] [address] 2022-08-13 2022-08-13 [facility] 1.2.840.114 [id number] Univers 00:00:00 00:00:00 Sandy BRANCH 350.1.13.10 i ty of [place] [id number] [address] 2022-07-31 2022-07-31 Outpatient R ADUM, [facility] [id number] Univers 09:45:00 11:27:35 SANDY guevara of [facility] 2022-07-31 2022-07-31 Office Adum, [facility] 1.2.634.912 [id number] Univers 09:45:00 11:27:35 Visit Sandy BRANCH 350.1.13.10 i ty of [place] [id number] [address] 2022-07-02 2022-07-02 Telephone Adum, [facility] 1.2.157.437 [id number] Univers 00:00:00 00:00:00 Sandy OLIVER 350.1.13.10 ity of [facility] 4.2.7.2.[place] [phone] Md dical NAL [address] 2022-01-03 2022-01-03 Office [facility] 1.2.840.114 [id number] Univers 15:00:00 16:34:21 Visit Greg OLIVER 350.1.13.10 i ty of [facility] 4.2.7.2.[place] [phone] Md dical [facility] [address] 2022-01-03 2022-01-03 Outpatient R ADUM, [facility] [id number] Univers 14:30:00 15:00:32 SANDY itpool [facility] 2022-01-03 2022-01-03 Office Ad, [facility] 1.2.840.114 [id number] Univers 14:30:00 15:00:32 Visit Sandy OLIVER 350.1.13.10 ity of [place].7.2.[place] [phone] Md dical [address] 2022-01-03 2022-01-03 Outpatient R IRAJ, [facility] [id number] Univers 15:00:00 15:00:00 GREG itpool [facility] 2022-01-03 2022-01-03 Outpatient R ADUM, [facility] [id number] Univers 09:45:00 09:45:00 SANDY ity [facility] 2021-10-05 2021-10-05 Outpatient R ADUM, [facility] [id number] Univers 08:30:00 09:51:27 SANDY ity [facility] 2021-10-05 2021-10-05 Office Ad, [facility] 1.2.840.114 [id number] Univers 08:30:00 09:51:27 Visit Sandy OLIVER 350.1.13.10 ity of [facility] 4.2.7.2.[place] [phone] Md dical NAL [address] [place] [address] 2021-09-21 2021-09-21 Telephone Adum, [facility] 1.2.102.356 [id number] Univers 00:00:00 00:00:00 Sandy L [place] 350.1.13.10 ity of [place].2.[place] [phone] Md dical NAL [address] 2021-09-20 2021-09-20 Outpatient R [facility], [facility] ZMT OPERATOR [id number] Univers 06:55:00 13:16:00 SANDY ity of [facility] 2021-09-20 2021-09-20 Hospital [facility] 1.2.840.114 [id number] Univers 06:55:00 13:16:00 Encounter Sandy L [place] 350.1.13.10 ity of [place] 4.2.7.2.[place] [id number] [facility] [address] 2021-09-20 2021-09-20 Surgery [facility] 1.2.840.114 [id number] Univers 08:00:00 10:44:00 Sandy L [place] 350.1.13.10 ity of [place].2.[place].2.[place] [id number] [facility] [address] 2021-09-19 2021-09-19 School Child Care Attendant Aryan, Adc Lab Main [facility] 1.2.8 40.114 [id number] Univers 09:00:00 09:15:00 Visit Adum, Sandy Walter [place] 350.1.13.10 ity of [place] 4.2.7.2.[place] [phone] Md dical [facility] [address] 2021-09-19 2021-09-19 Laboratory Only, Adc Test [facility] 1.2.840. 114 [id number] Univers 08:45:00 09:00:00 Only Adella, Sandy Walter [place] 350.1.13.10 ity of [place] 4.2.7.2.[place] C[place] [id number] [facility] [address] 2021-09-19 2021-09-19 Outpatient R [facility] [id number] Univers 08:45:00 08:45:00 SANDY ity of [facility] 2021-09-19 2021-09-19 Orders Doctor MELANY 1.2.840.114 [id number] Univers 00:00:00 00:00:00 Only Unassigned, MARCELINA 350.1.13.10 ity of [place] [facility] 4.2.7.2.686 [place] as [phone] [address] 2021-09-07 2021-09-07 [facility] [id number] Univers 09:30:00 10:41:18 SANDY guevara [facility] 2021-09-07 2021-09-07 [facility] 1.2.840.114 [id number] Univers 09:30:00 10:41:18 Visit Sandy OLIVER 350.1.13.10 ity of [place] 4[place].7.2.[place] [phone] Md dical NAL [address] [place] [address] 2021-09-07 2021-09-07 [facility] [id number] Univers 09:30:00 10:41:18 SANDYAMIE guevara [facility] 2021-08-23 2021-08-23 School Child Care Attendant 2, Adc Lab [facility] 1.2.840.114 [id number] Univers 11:00:00 11:06:03 Visit RichardSandy jaramillo 350.1.13.10 ity [facility] 4.2.7.2.[place] [phone] Md dical NAL [address] 2021-08-23 2021-08-23 Outpatient [facility] [id number] Univers 11:00:00 11:00:00 SANDY pool [facility] 2021-08-20 2021-08-20 Telephone Pcp, [facility] 1.2.610.697 [id number] Univers 00:00:00 00:00:00 Patient BENITO 350.1.13.10 i ty of Does Not [place] 4.2.7.2.686 [place] as Have A PROFESSIO [phone] Md dical NAL [address] 2021-05-23 2021-05-23 Outpatient [facility] [id number] Univers 09:30:00 09:30:00 SANDY ity of [facility] 2021-05-15 2021-05-15 Outpatient R [facility] [id number] Univers 11:00:00 11:00:00 ity of [facility] 2021-05-11 2021-05-11 Telephone [facility] 1.2.263.536 [id number] Univers 00:00:00 00:00:00 Sandy L [place] 350.1.13.10 ity of [place].2.[place] [phone] Md dical [address] 2021-05-02 2021-05-02 [facility] 1.2.840.114 [id number] Univers 10:00:00 23:59:00 Encounter Sandy Walter [place] 350.1.13.10 ity of [place].7.2.[place] [id number] [facility] [address] [place] [address] 2021-05-02 2021-05-02 Outpatient R [facility] [id number] Univers 00:00:00 00:00:00 SANDY ity of [facility] 2021-03-12 2021-03-12 Outpatient [facility] [id number] Univers 15:30:00 15:30:00 LYNNE miramontesy o f [facility] 2021-02-09 2021-02-09 Office [facility] 1.2.840.114 [id number] Univers 10:08:01 13:21:25 Visit Sandy [place] 350.1.13.10 ity of [place].2.[place] [phone] Md dical [address] 2021-02-09 2021-02-09 Office [facility] 1.2.840.114 [id number] 10:08:01 13:21:25 Visit Sandy Walter [place] 350.1.13.10 [place] 4.2.7.2.686 Professio [id number] [address] 2021-02-09 2021-02-09 Outpatient [facility] [id number] Univers 10:00:00 10:00:00 SANDY guevara of [facility] 2021-02-09 2021-02-09 Orders Doctor MELANY 1.2.840.114 [id number] Univers 00:00:00 00:00:00 Only Unassigned, MARCELINA 350.1.13.10 ity of [place] [facility] 4.2.7.2.686 [place] as [phone] [address] 2021-02-09 2021-02-09 Orders Doctor MELANY 1.2.840.114 [id number] 00:00:00 00:00:00 Only Unassigned, MARCELINA 350.1.13.10 [place] [facility] 4.2.7.2.686 [id number] 009 2021-02-07 2021-02-07 School Child Care Attendant Draw, Clc-Bls Lab [facility] 1.2.8 40.114 [id number] Univers 15:19:20 15:34:20 Visit Lynne [facility] 350.1.13.10 [place]y of [place] [phone] [facility] [address] 2021-02-07 2021-02-07 Office [facility] 1.2.840.114 [id number] Univers 14:39:19 15:09:19 Visit Lynne [facility] 350.1.13.10 [place] of [place] [phone] [facility] [address] 2021-02-07 2021-02-07 Outpatient R [facility] [id number] Univers 14:30:00 14:30:00 BATISTA ity o f [facility] 2021-01-24 2021-01-24 [facility] 1.2.840.114 [id number] Univers 18:00:00 23:59:00 Encounter Sandy Oliver 350.1.13.10 ity of [place].2.[place] [phone] [place] [address] 2021-01-24 2021-01-24 Outpatient R AD, [facility] [id number] Univers 00:00:00 00:00:00 SANDY guevara [facility] 2021-01-12 2021-01-12 Office [facility] 1.2.840.114 [id number] Univers 15:08:30 16:14:17 Visit Sandy Walter Ben[place] 350.1.13.10 ity of [place].2.[place] [phone] Md dical [facility] [address] [facility] 2021-01-12 2021-01-12 Outpatient R ADUM, [facility] [id number] Univers 15:00:00 15:00:00 SANDY guevara [facility] 2021-01-12 2021-01-12 Orders Doctor MELANY 1.2.840.114 [id number] Univers 00:00:00 00:00:00 Only Unassigned, MARCELINA 350.1.13.10 ity of [place] [facility] 4.2.7.2.686 [place] as [phone] [facility] [address] 2020-12-15 2020-12-[address] [facility] 1.2.505.054 [id number] Univers 00:00:00 00:00:00 Ene Oliver 350.1.13.10 ity of [place] [phone] Md dical [facility] [address] [facility] 2020-12-15 2020-12-15 Case [facility] 1.2.840.114 [id number] Univers 00:00:00 00:00:00 Management Ene Oliver 350.1.13.10 ity of [place].2.[place] [phone] Md dical [facility] 2020-12-11 2020-12-11 [facility] 1.2.475.118 [id number] Univers 10:30:00 23:59:00 Encounter Greg Oliver 350.1.13.10 ity of [place] 4[place].2.[place] [phone] [facility] [address] 2020-12-11 2020-12-11 Outpatient [facility] [id number] Univers 00:00:00 00:00:00 GREG ity [facility] 2020-12-04 2020-12-04 School Child Care Attendant Aryan, Marlys Lab Main [facility] 1.2.8 40.114 [id number] Univers 12:18:25 12:33:25 Visit Ene De Paz 350.1.13.10 ity of [place] 4[place]2.7.2.[place] [phone] Md dical nal [address] [facility] 2020-12-04 2020-12-04 Outpatient [facility] [id number] Univers 12:15:00 12:15:00 ENE [facility] 2020-11-24 2020-11-24 [facility] [id number] Univers 00:00:00 00:00:00 [facility] 2020-11-17 2020-11-17 Out[facility] [id number] Univers 00:00:00 00:00:00 [facility] 2020-11-09 2020-11-09 Office [facility] 1.2.840.114 [id number] Univers 13:13:03 13:47:16 Visit Greg Benito 350.1.13.10 i ty of [place].2.[place] [phone] Md dical nal [address] [facility] 2020-11-09 2020-11-09 Outpatient [facility] [id number] Univers 13:00:00 13:00:00 GREG ity [facility] 2020-11-09 2020-11-09 Orders Doctor MOSLEY 1.2.840.114 [id number] Univers 00:00:00 00:00:00 Only Unassigned, MARCELINA 350.1.13.10 ity of [place] [facility] 4.2.7.2.686 [place] as [phone] [facility] [address] 2020-09-25 2020-09-25 Outpatient R [facility]ZWERIUC [facility] [id number] Univers 09:30:00 09:30:00 GREG ity [facility] 2020-07-31 2020-07-31 Outpatient R DANGELOFRANCISCAMiahUC [facility] [id number] Univers 09:30:00 09:30:00 GREG ity [facility] 2020-05-15 2020-05-15 [facility] 1.2.840.114 [id number] Univers 15:52:26 16:31:00 Visit Greg [place] 350.1.13.10 i ty [facility] 4.2.7.2.[place] [phone] Md dical [address] 2020-05-15 2020-05-15 Outpatient R [facility] [id number] Univers 16:15:00 16:15:00 [facility] ity [facility] 2020-03-06 2020-03-06 Outpatient R [facility] [id number] Univers 09:30:00 09:30:00 ity [facility] 2020-03-02 2020-03-02 Orders Doctor MELANY 1.2.840.114 [id number] Univers 00:00:00 00:00:00 Only Unassigned, MARCELINA 350.1.13.10 ity of [place] [facility] 4.2.7.2.686 [place] as [phone] [address] 2020-02-09 2020-02-09 Office [facility] 1.2.335.223 [id number] Univers 14:46:23 15:52:57 Visit Osmin Jones WILDLIFE CONTROL OPERATOR 350.1.13.10 it y of [facility] 4.2.7.2.686 [place] as MATERNAL [phone] Med ical & CHILD [address] [place] [address] 2020-02-09 2020-02-09 Outpatient R [facility] [id number] Univers 14:30:00 14:30:00 OSMIN [facility]CH[facility] 2020-02-09 2020-02-09 Orders Doctor MOSLEY 1.2.840.114 [id number] Univers 00:00:00 00:00:00 Only UnassignedMARCELINA 350.1.13.10 ity of [place] [facility] 4.2.7.2.686 [place] as [phone] [facility] [address] 2020-02-04 2020-02-04 Telephone [facility] 1.2.840.114 [id number] Univers 00:00:00 00:00:00 Greg [place] 350.1.13.10 i ty of [place] [phone] [facility] [address] [facility] 2020-01-31 2020-01-31 Telephone [facility] 1.2.840.114 [id number] Univers 00:00:00 00:00:00 Greg [place] 350.1.13.10 i ty of [place] 4[place].2.[place] [phone] [facility] [address] [facility] 2020-01-25 2020-01-25 Outpatient R [facility] [id number] Univers 09:32:27 23:59:00 ENE itpool [facility] 2020-01-25 2020-01-25 [facility] 1.2.840.114 [id number] Univers 09:00:00 23:59:00 Encounter Ene Oliver 350.1.13.10 ity of [place] [phone] [facility] [address] 2019-11-24 2019-11-24 Orders Doctor MELANY 1.2.840.114 [id number] Univers 00:00:00 00:00:00 Only Unassigned, MARCELINA 350.1.13.10 ity of [facility] 4.2.7.2.686 [place] as [phone] [facility] [address] 2019-11-18 2019-11-18 Telephone [facility] 1.2.115.085 [id number] Univers 00:00:00 00:00:00 Ene Oliver 350.1.13.10 ity of [place] [phone] [facility] [address] [facility] 2019-11-16 2019-11-16 Telephone [facility] 1.2.165.481 [id number] Univers 00:00:00 00:00:00 Ene Oliver 350.1.13.10 ity of [place] [phone] [facility] [address] [facility] 2019-09-27 2019-09-27 Office [facility] 1.2.840.114 [id number] Univers 09:00:38 11:30:09 Visit Rm, Adc Surg Spec Procedure [place] [address] 50.1.13.10 ity of [place] 4[place].2.[place] [phone] [facility] nal [address] [facility] 2019-09-27 2019-09-27 Orders Doctor MELANY 1.2.840.114 [id number] Univers 00:00:00 00:00:00 Only Unassigned, MARCELINA 350.1.13.10 ity of [place] [facility] 4.2.7.2.686 [place] as [phone] [address] 2019-09-10 2019-09-10 Telephone [facility] 1.2.840.114 [id number] Univers 00:00:00 00:00:00 Greg Oliver 350.1.13.10 i ty of [place] [phone] [facility] [address] [facility] 2019-09-09 2019-09-09 [facility] 1.2.477.449 [id number] Univers 06:25:00 11:31:00 Encounter Greg [place] 350.1.13.10 ity of [place] 4[place]2.7.2.[place] Surgical [phone] [facility] [address] 2019-09-09 2019-09-09 Orders Doctor MELANY 1.2.840.114 [id number] Univers 00:00:00 00:00:00 Only Unassigned, MARCELINA 350.1.13.10 ity of [place] [facility] 4.2.7.2.686 [place] as [phone] [facility] [address] 2019-09-08 2019-09-08 [facility] 1.2.840.114 [id number] Univers 10:15:00 23:59:00 Encounter Ene Oliver 350.1.13.10 ity of [place].2.[place] [phone] [facility] [address] 2019-09-03 2019-09-03 School Child Care Attendant Aryan, Marlys Lab Main [facility] 1.2.8 40.114 [id number] Univers 14:41:10 14:56:10 Visit Greg Quintanilla 350.1.13.10 ity of [place].2.[place] [phone] Md dical nal [address] [facility] 2019-09-03 2019-09-03 Orders Doctor MELANY 1.2.840.114 [id number] Univers 00:00:00 00:00:00 Only Unassigned, MARCELINA 350.1.13.10 ity of [place] [facility] 4.2.7.2.686 [place] as [phone] [address] 2019-09-02 2019-09-02 Orders Doctor MELANY 1.2.840.114 [id number] Univers 00:00:00 00:00:00 Only Unassigned, MARCELINA 350.1.13.10 ity of [place] [facility] 4.2.7.2.686 [place] as [phone] [address] 2019-09-02 2019-09-02 Telephone Dangelodavid [facility] 1.2.840.114 [id number] Univers 00:00:00 00:00:00 Greg Oliver 350.1.13.10 i ty of [place] [phone] Md dical nal [address] [facility] 2019-08-31 2019-08-31 Prep For Zandra, [facility] 1.2.840.114 [id number] Univers 00:00:00 00:00:00 Surgery Ene Oliver 350.1.13.10 ity of [place].2.[place] [phone] Md dical nal [address] [facility] 2019-08-31 2019-08-31 Case Zandra, [facility] 1.2.840.114 [id number] Univers 00:00:00 00:00:00 Management Ene Oliver 350.1.13.10 [facility] [place] 4.2.7.2.686 Maya Hansen [phone] Md dical [facility] [address] [facility] Results Test Description Test Time Test Comments Results Result Comments Source POCT TEST 2022-08-30 16:41:00 Test Item Value Reference Range Interpretation Comme nts POCT PREG (test code = 1605) Negative On board controls acceptable with C Line (test code = 3574) Yes POCT PREG LOT # (test code = 3575) POCT PREG TEST DATE (test code = 3576) [id number] 16:41:00 Test Item Value Reference Range Interpretation Comments POCT PREG (test code = 1605) Negative On board controls acceptable with C Yes Line (test code = 3574) POCT PREG LOT # (test code = 3575) POCT PREG TEST DATE (test code = 3576) [facility]- PE TEST DESIGN 2019-08-06 06:01:00Reason for exam:->BACK PAINReason for exam:->SHORTNESS OF BREATHIs the patient ?->NoWhat is the patient's sedation requirement?->No SedationFINAL REPORT TECHNIQUE: CT scan of the chest WITH intravenous contrast. Dose modulation, iterative reconstruction, and/or weight-based adjustment of the mA/kV was utilized to reduce the radiation dose to as low as reasonably achievable. INDICATION: Positive d-dimer, back pain, andshortness of breath. COMPARISON: None. FINDINGS: LINES/TUBES: None. PULMONARY ARTERIES: Proximal to the bifurcation of the main pulmonary artery, the main pulmonary artery is 2.5 cm in diameter. No filling defects within the pulmonary arteries to suggest pulmonary embolus. LUNGS AND AIRWAYS: The lungsand airways are normal without focal abnormality. PLEURA: The pleural spaces are clear. HEART AND MEDIASTINUM: No significant mediastinal, hilar, or axillary lymphadenopathy. The heart and pericardium are within normal limits. SOFT TISSUES AND BONES: Unremarkable. UPPER ABDOMEN: Bilateral ureter stents are present. Small hiatal hernia. IMPRESSION:No pulmonary embolism or acute cardiopulmonary abnormality. Lungs are clear. Signed: Bebeto Lawson MDReport Verified Date/Time: 08/06/2019 06:01:51 [facility] [id number] 04:08:00Reason for exam:->post ureteral stentingReason for exam:->SHORTNESS OF BREATHIs the patient ?->NoWhat is the patient's sedation requirement?->No SedationFINAL REPORT EXAM: CT of the abdomen and pelvis, with contrast CLINICAL HISTORY: Abdominal pain post ureteral stenting. TECHNIQUE: CT of the abdomen and pelvis was performed with intravenous contrast administration. This exam was performed according to our departmental dose optimization program which includes automated exposure control, adjustment of the mA and/or kV according topatient's size and/or use of iterative reconstructive technique. COMPARISON: None FINDINGS: LOWER CHEST: Mild bibasilar dependent atelectasis. Mild discoid atelectasis in the right middle lobe.LIVER: Within normal limits.BILE DUCTS: Within normal limits.GALL BLADDER: Within normal limits.PANCREAS: Within normal limits.SPLEEN: Within normal limits.ADRENALS: Within normal limits.KIDNEYS/URETERS: Bilateral double-J nephroureteral stents in place. Punctate nonobstructing bilateral renal stones measuringup to 5 mm in the left kidney. 3 mm nonobstructing stone in the left distal ureter. No hydroureteronephrosis or perinephric stranding. URINARY BLADDER: Within normal limits.REPRODUCTIVE ORGANS: 3 cm left ovarian cyst and 2.8 cm right ovarian cyst, almost certainly benign and requires no additional imaging follow-up. Unremarkable uterus. BOWEL/MESENTERY: No bowel obstruction or abnormal wall thickening. Normal appendix.PERITONEUM/RETROPERITONEUM: No free air, free fluid or fluid collection. VESSELS: Within normal limits. LYMPH NODES: No abdominal or pelvic lymphadenopathy.SOFT TISSUES: Within normallimits.BONES: Within normal limits. IMPRESSION: Bilateral nephroureteral stents in place.Punctate bilateral nonobstructing renal stones. Punctate nonobstructing left distal ureteral stone.No hydroureteronephrosis or perinephric stranding. Signed: Ricky Schaffer MDReport Verified Date/Time: 08/06/2019 04:08:20 D-DIMER 2019-08-06 03:25:00 Test Item Value Reference Range Interpretation Comments D-DIMER QUANTITATIVE (BEAKER) 2.87 MG/L FEU <0.50 H (test code = 671) Intended Use: The D-Dimer Assay can be [...] within 95-100% range.RAD, CHEST, 1 VIEW, NON [id number] 03:24:00Reason for exam:->BACK PAINReason for exam:->SHORTNESS OF [...] Lawson MDReport Verified Date/Time: 08/06/2019 03:24:23 EN, [id number] 21:20:00 Test Item Value Reference Range Interpretation Comments TEST URINE (BEAKER) (test Negative code = 583) URINALYSIS W/ REFLEX URINE [id number] 21:19:00 Test Item Value Reference Range Interpretation [...] SOURCE(BEAKER) (test code = 2795) BASIC METABOLIC [id number] 21:18:00 Test Item Value Reference Range Interpretation [...] ESTIMATED GFR. CBC W/PLT COUNT & AUTO [id number] 21:07:00 Test Item Value Reference Range Interpretation [...] PERCENT (BEAKER) (test code = 2801) BLOOD [id number] 00:00:00 Test Item Value Reference Range Interpretation Comments CULTURE (BEAKER) (test No growth in 5 days code = 1095) BLOOD [id number] 00:00:00 Test Item Value Reference Range Interpretation Comments CULTURE (BEAKER) (test No growth in 5 days code = 1095) SCREEN, [id number] 07:02:00 Test Item Value Reference Range Interpretation Comments TEST URINE (BEAKER) (test Negative code = 583) BASIC METABOLIC [id number] 03:43:00 Test Item Value Reference Range Interpretation [...] ESTIMATED GFR. CBC W/PLT COUNT & AUTO [id number] 02:58:00 Test Item Value Reference Range Interpretation [...] (BEAKER) (test code = 2801) BASIC METABOLIC [id number] 06:50:00 Test Item Value Reference Range Interpretation [...] ESTIMATED GFR. CBC W/PLT COUNT & AUTO [id number] 04:00:00 Test Item Value Reference Range Interpretation [...] (BEAKER) (test code = 2801) U/S, RENAL, [id number] 02:21:00Reason for exam:->akiFINAL REPORT Renal ultrasound dated 07/23/2019 CLINICAL HISTORY: RANJANA, bilateral stent placement COMPARISON: None Comment: Real-time transabdominal renal ultrasound was performed. Right kidney measures 12.5 x 4.7 x 4.9 cm. Left kidney measures 11.3 x 6.6 x 5.3 cm. Right renal cortexmeasures 1.1 cm. Left renal cortex measures 1.7 [...] stents in the urinary bladder. Signed: Donnell Hidalgo [employer]ard Verified Date/Time: 07/24/2019 02:21:25 RAD, ABDOMEN/KUB, 1 VIEW [id number] 01:26:00Reason for exam:->stent positioningShould this be performed at the bedside?->YesFINAL REPORT CLINICAL HISTORY: Stent positioning COMPARISON: None. FINDINGS: 2 s upine views of the abdomen are submitted. Bilateral ureteral stents appear appropriately positioned.The abdominal bowel gas pattern is normal. There is no evidence of organomegaly or ascites. There isno acute bony abnormality. The lung bases are clear. Signed: Donnell Hidalgoeport Verified Date/Time: 07/24/2019 01:26:46 W/PLT COUNT & AUTO [id number] 06:40:00 Test Item Value Reference Range Interpretation [...] (BEAKER) (test code = 2801) BASIC METABOLIC [id number] 06:32:00 Test Item Value Reference Range Interpretation [...] GFR. FL, FLUORO, NON-SPECIFIC, UP TO 1 [id number] 02:47:00Reason for exam:- >left ureteral stent placementFINAL REPORT Examination: Retrograde pyelography 75 fluoroscopic spot views were obtained during the procedure by the ordering service. Images are nondiagnostic as no radiologist wa s present at the time of imaging. Fluoroscopic time was not provided. Please see the procedure report for details. Signed: Donnell Hidalgo MDReport Verified Date/Time: 07/23/2019 02:47:24 Electronicallysigned by: DONNELL HIDALGO M.D. on 07/23/2019 02:47 AMLACTIC ACID, [id number] 02:22:00 Test Item Value Reference Range Interpretation Comments LACTATE BLOOD VENOUS (2) (BEAKER) 1.0 mmol/L 0.5-2.2 (test code = 2872) LACTIC ACID, [id number] 23:42:00 Test Item Value Reference Range Interpretation Comments LACTATE BLOOD VENOUS (2) (BEAKER) 0.5 mmol/L 0.5-2.2 (test code = 2872) [id number] 22:29:00 Test Item Value Reference Range Interpretation Comments PROCALCITONIN (BEAKER) (test code 0.11 ng/mL <0.05 H = 3036) SEPSIS RISK (ng/mL)Low: 0.05-0.50Intermediate: 0.51-2.00High: >=2.01TROPONIN [id number] 22:25:00 Test Item Value Reference Range Interpretation [...] acute neurological disease, and persistent tachyarrhythmia.BASIC METABOLIC [id number] 22:23:00 Test Item Value Reference Range Interpretation [...] 1092) DATA TO CALCULA TE ESTIMATED GFR. [id number] 22:19:00 Test Item Value Reference Range Interpretation Comments MAGNESIUM (BEAKER) 1.9 mg/dL 1.6-2.6 Specimen slightly (test code = 627) hemolyzed URIC [id number] 22:19:00 Test Item Value Reference Range Interpretation Comments URIC ACID (BEAKER) 5.0 mg/dL 2.6-7.2 Specimen slightly (test code = 773) hemolyzed HEPATIC FUNCTION [id number] 22:19:00 Test Item Value Reference Range Interpretation [...] Specimen slightly (test code = 347) hemolyzed [id number] 22:19:00 Test Item Value Reference Range Interpretation Comments LIPASE (BEAKER) (test code = 749) 5 U/L 8-78 L LACTIC ACID, [id number] 22:15:00 Test Item Value Reference Range Interpretation Comments LACTATE BLOOD VENOUS (2) (BEAKER) 0.8 mmol/L 0.5-2.2 (test code = 2872) CBC W/PLT COUNT & AUTO [id number] 22:05:00 Test Item Value Reference Range Interpretation [...] (BEAKER) (test code = 2801) CREATININE, RANDOM [id number] 22:01:00 Test Item Value Reference Range Interpretation Comments CREATININE URINE (BEAKER) (test 99.2 mg/dL code = 375) Reference Range: No NormalsSODIUM, RANDOM [id number] 22:01:00 Test Item Value Reference Range Interpretation Comments SODIUM URINE (BEAKER) (test code = 85 meq/L 243) Reference Range: No NormalsURINALYSIS WITH MICROSCOPIC IF [id number] 21:59:00 Test Item Value Reference Range Interpretation [...] 463) SOURCE(BEAKER) (test code = 2795) URINALYSIS [id number] 21:59:00 Test Item Value Reference Range Interpretation Comments RBC UA (BEAKER) (test code = 519) 7 /HPF WBC UA (BEAKER) (test code = 520) 13 /HPF SQUAMOUS EPITHELIAL (BEAKER) (test 1 /HPF code = 516) YEAST (BEAKER) (test code = 1585) Rare SCREEN, [id number] 21:56:00 Test Item Value Reference Range Interpretation Comments TEST URINE (BEAKER) (test Negative code = 583)
[2022-10-11] MEDS ORDERED: PROMETHAZINE INJ 25 MG/ML AMP ONE ×2 (05:23→08:01)
[2022-10-11] MEDS ORDERED: MORPHINE 4 MG/ML SYR ONE ×2 (05:24→08:02)
[2022-10-11 05:41] LABS: Absolute Lymphocytes (CBC) 1.2 K/uL (0.7-4.9); Hematocrit 37.9 % (36.0-45.0); Lymphocytes % 5.7 % (15.3-44.8); MPV 7.4 fL (7.6-11.3); RBC Red Blood Cell Count 4.26 M/uL (3.86-4.86)
[2022-10-11 05:53] LABS: Albumin 4.2 g/dL (3.4-5.0); Potassium 3.2 mmol/L (3.5-5.1); Protein, Total 7.9 g/dL (6.4-8.2)
[2022-10-11] MEDS ORDERED: ONDANSETRON 4 MG/2 ML VIAL ONE (06:09)
[2022-10-11] MEDS ORDERED: HYDROMORPHONE HCL 1 MG/ML INJ ONE (06:09)
--- NOTE | 2022-10-11 07:00 | ER ---
Nurse's Notes [facility] Name: Joyce Duran Age: 42 yrs Sex: Female : 1980 Arrival Date: 10/11/2022 Time: 05:01 Bed 5 Private MD: Diagnosis: Abdominal pain, unspecified-Intractable;Vomiting-Intractable Presentation: 10/11 05:14 Chief complaint: Patient states: "I had a 16cm cyst removed from my right ovary at [facility] vc1 yesterday morning. Now the pain is so bad and I can't stop vomiting.". Coronavirus screen: Vaccine status: Patient reports being unvaccinated. At this time, the client does not indicate any symptoms associated with coronavirus-19. Ebola Screen: No symptoms or risks identified at this time. Initial Sepsis Screen: Does the patient meet any 2 criteria? HR > 90 bpm. No. Patient's initial sepsis screen is negative. Does the patient have a suspected source of infection? No. Patient's initial sepsis screen is negative. Risk Assessment: Do you want to hurt yourself or someone else? Patient reports no desire to harm self or others. Onset of symptoms was October 11, 2022. 05:14 Method Of Arrival: Ambulatory vc1 05:14 Acuity: PALLAVI 3 vc1 Triage Assessment: 05:18 General: Appears in no apparent distress. uncomfortable, Behavior is calm, cooperative, vc1 appropriate for age. Pain: Complains of pain in abdomen Pain does not radiate. Pain currently is 10 out of 10 on a pain scale. Noted to be crying, grimacing, Also complains of nausea, vomiting. EENT: No deficits noted. No signs and/or symptoms were reported regarding the EENT system. Neuro: Level of Consciousness is awake, alert, obeys commands, Oriented to person, place, time, situation, Appropriate for age. Cardiovascular: No deficits noted. Respiratory: Airway is patent Respiratory effort is even, unlabored, Respiratory pattern is regular, symmetrical. GI: Reports lower abdominal pain, upper abdominal pain, nausea, vomiting. : No deficits noted. No signs and/or symptoms were reported regarding the genitourinary system. Derm: No deficits noted. No signs and/or symptoms reported regarding the dermatologic system. Musculoskeletal: No deficits noted. No signs and/or symptoms reported regarding the musculoskeletal system. 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 - Social history:: Smoking status: Patient reports the use of cigarette tobacco products, 1 ppd. - Family history:: not pertinent. - Hospitalizations: : No recent hospitalization is reported. Screenin:19 [facility] ED Fall Risk Assessment (Adult) History of falling in the last 3 months, vc1 including since admission No falls in past 3 months (0 pts) Confusion or Disorientation No (0 pts) Intoxicated or Sedated No (0 pts) Impaired Gait No (0 pts) Mobility Assist Device Used No (0 pt) Altered Elimination No (0 pt) Score/Fall Risk Level 0 - 2 = Low Risk Oriented to surroundings, Maintained a safe environment, Assessed \\T\\ reinforced patient's understanding of fall precautions. Abuse screen: Denies threats or abuse. Nutritional screening: No deficits noted. Tuberculosis screening: No symptoms or risk factors identified. Assessment: 05:15 General: Appears uncomfortable, Behavior is cooperative. General: Appears. Pain: kd3 Complains of pain in abdomen. GI: Pt is actively vomiting bile. 07:00 Reassessment: Report received from car shifter RN. ll1 07:20 Reassessment: No changes from previously documented assessment. Patient and/or family ll1 updated on plan of care and expected duration. Pain level reassessed. N/V and abd pain. Dr. Hurd informed. 07:30 Reassessment: No changes from previously documented assessment. Dr. Hurd at . ll1 08:10 Reassessment: No changes from previously documented assessment. Patient and/or family ll1 updated on plan of care and expected duration. Pain level reassessed. Patient is alert, oriented x 3, equal unlabored respirations, skin warm/dry/pink. 08:43 Reassessment: No changes from previously documented assessment. Patient and/or family ll1 updated on plan of care and expected duration. Pain level reassessed. Patient is alert, oriented x 3, equal unlabored respirations, skin warm/dry/pink. 09:30 Reassessment: No changes from previously documented assessment. Patient and/or family ll1 updated on plan of care and expected duration. Pain level reassessed. Patient is alert, oriented x 3, equal unlabored respirations, skin warm/dry/pink. Vital Signs: 05:14 BP 158 / 119; Pulse 103; Temp 99.5; Pulse Ox 100% ; Weight 70.31 kg; Height 5 ft. 3 in. vc1 (160.02 cm); Pain 10/10; 06:08 BP 142 / 94; Pulse 101; Resp 16; Pulse Ox 99% on R/A; kd3 06:49 BP 176 / 82; Pulse 77; Resp 20 S; Pulse Ox 99% on R/A; as6 07:40 BP 146 / 95; Pulse 78; Pulse Ox 100% ; ll1 09:30 BP 140 / 93; Pulse 90; Resp 19; Pulse Ox 100% on R/A; ll1 05:14 Body Mass Index 27.46 (70.31 kg, 160.02 cm) vc1 ED Course: 05:01 Patient arrived in ED. jj6 05:01 Josué Hurd MD is Attending Physician. rn 05:14 Nely Villegas, HUBERT is Primary Nurse. kd3 05:17 Triage completed. vc1 05:19 Arm band placed on right wrist. vc1 05:28 Inserted saline lock: 20 gauge in right antecubital area, using aseptic technique. as6 Blood collected. 06:09 Patient has correct armband on for positive identification. Bed in low position. Call kd3 light in reach. Side rails up X2. 06:26 CT Abd/Pelvis - IV Contrast Only In Process Unspecified. EDMS 07:01 initiated a transfer with Viky from the [facility] transfer center at the request of the patient/ She was just discharged yesterday from [facility] (formerly [facility]). 07:[address] 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 Hurd for patient transfer consultation.eb 07:26 administrative approval given by Viky Felipe / patient has been accepted to [facility] L\\T\\D/ Dr. Sandy Bear has accepted the patient in transfer/ report to be called to [phone]/ they are having to call a nurse in to take the patient and is asking us to delay calling for a little bit/. 07:41 No provider procedures requiring assistance completed. Patient transferred, IV remains ll1 in place. 07:42 SARS RAPID Sent. 1 08:31 Primary Nurse role handed off by Nely Villegas, RN 1 08:31 Alfredo Simpson, RN is Primary Nurse. 1 Administered Medications: 05:23 Drug: Phenergan (promethazine) 12.5 mg Route: IVP; Site: right antecubital; kd3 06:08 Follow up: Response: No adverse reaction; Nausea is decreased kd3 05:24 Drug: morphine 4 mg Route: IVP; Infused Over: 4 mins; Site: right antecubital; kd3 06:08 Follow up: Response: No adverse reaction; Pain is decreased kd3 05:28 Drug: NS 0.9% 1000 ml Route: IV; Rate: 1 bolus; Site: right antecubital; kd3 07:41 Follow up: IV Status: Completed infusion; IV Intake: 1000ml 1 06:08 Drug: Dilaudid (HYDROmorphone) 1 mg Route: IVP; Site: right antecubital; kd3 07:42 Follow up: Response: No adverse reaction; Pain is decreased; RASS: Alert and Calm (0) 1 06:08 Drug: Zofran (Ondansetron) 4 mg Route: IVP; Site: right antecubital; kd3 07:42 Follow up: Response: No adverse reaction; Nausea unchanged; RASS: Alert and Calm (0) 1 08:04 Drug: Phenergan (promethazine) 12.5 mg Route: IVP; Site: right antecubital; ll1 09:41 Follow up: Response: No adverse reaction; Nausea is decreased; RASS: Alert and Calm (0) 1 08:05 Drug: morphine 4 mg {Note: pain 9/10 RASS 0.} Route: IVP; Infused Over: 4 mins; Site: 1 right antecubital; 09:41 Follow up: Response: No adverse reaction ll1 09:42 Follow up: Response: No adverse reaction; Pain is decreased; RASS: Alert and Calm (0) [facility] Medication: 05:20 VIS not applicable for this client. vc1 Intake: 07:41 IV: 1000ml; Total: 1000ml. 1 Outcome: 07:00 ER care complete, transfer ordered by MD. bernal 07:41 Condition: stable ll1 07:41 Instructed on the need for transfer. 08:42 Transferred by ground EMS to [facility], Transfer form ll1 completed. Note: report called to Kaci Echols RN at [facility] L\\T\\D 09:40 Patient left the ED. ll1 Signatures: Dispatcher [employer] EDMS Josué Hurd MD MD rn Botello, Elizabeth eb Lewis, Lynsay, RN RN ll1 Cherelle Salcidoj6 Parish Mcdermott RN RN as6 Nely Villegas RN RN kd3 Patricia Saini RN RN vc1 Corrections: (The following items were deleted from the chart) 07:37 07:01 initiated a transfer with Viky from the [facility] transfer center guerda croft
--- NOTE | 2022-10-11 07:00 | EDPHYS ---
Physician Documentation [facility] Name: Joyce Duran Age: 42 yrs Sex: Female : 1980 Arrival Date: 10/11/2022 Time: 05:01 Bed 5 Private MD: ED Physician Josué Hurd HPI: 10/11 05:30 This 42 yrs old Female presents to ER via Ambulatory with complaints of rn Nausea/Vomiting, Abdominal Pain. 05:30 The patient presents to the emergency department with nausea, vomiting, abdominal pain. rn Onset: The symptoms/episode began/occurred last night. Possible causes: unknown. The symptoms are aggravated by pressure, The symptoms are alleviated by nothing. Severity of symptoms: At their worst the symptoms were moderate in the emergency department the symptoms are unchanged. The patient has not experienced similar symptoms in the past. The patient has been recently seen by a physician:. Pt had lap ovarian cyst removal yesterday, at [facility], comes in tonight for worsening abd pain and vomiting. No fever. . 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 - Social history:: Smoking status: Patient reports the use of cigarette tobacco products, 1 ppd. - Family history:: not pertinent. - Hospitalizations: : No recent hospitalization is reported. ROS: 05:30 Constitutional: Negative for fever, chills, and weight loss, Eyes: Negative for injury, rn pain, redness, and discharge, Cardiovascular: Negative for chest pain, palpitations, and edema, Respiratory: Negative for shortness of breath, cough, wheezing, and pleuritic chest pain, Abdomen/GI: + abd pain and nausea/vomiting Back: + back pain MS/Extremity: Negative for injury and deformity, Skin: Negative for injury, rash, and discoloration, Neuro: Negative for headache, weakness, numbness, tingling, and seizure. Exam: 05:30 Constitutional: This is a well developed, well nourished patient who is awake, alert, rn in moderate distress Head/Face: Normocephalic, atraumatic. Cardiovascular: Tachycardic, regular Respiratory: No increased work of breathing, no retractions or nasal flaring. Abdomen/GI: soft, + mild tenderness, no rebound Skin: Warm, dry MS/ Extremity: Pulses equal, no cyanosis. Neuro: Awake and alert, GCS 15 Vital Signs: 05:14 BP 158 / 119; Pulse 103; Temp 99.5; Pulse Ox 100% ; Weight 70.31 kg; Height 5 ft. 3 in. vc1 (160.02 cm); Pain 10/10; 06:08 BP 142 / 94; Pulse 101; Resp 16; Pulse Ox 99% on R/A; kd3 06:49 BP 176 / 82; Pulse 77; Resp 20 S; Pulse Ox 99% on R/A; as6 07:40 BP 146 / 95; Pulse 78; Pulse Ox 100% ; ll1 09:30 BP 140 / 93; Pulse 90; Resp 19; Pulse Ox 100% on R/A; ll1 05:14 Body Mass Index 27.46 (70.31 kg, 160.02 cm) vc1 MDM: 05:01 Patient medically screened. rn 06:57 Differential diagnosis: Nonspecific abd pain, post-surgical pain, complication, rn hematoma. Data reviewed: vital signs, nurses notes, lab test result(s), radiologic studies, CT scan, and as a result, I will admit patient. Consideration of Admission/Observation Patient was admitted/placed on observation. Escalation of care including admission/observation considered. I considered the following discharge prescriptions or medication management in the emergency department Medications were administered in the Emergency Department. See MAR. Counseling: I had a detailed discussion with the patient and/or guardian regarding: the historical points, exam findings, and any diagnostic results supporting the discharge/admit diagnosis, lab results, radiology results, the need to transfer to another facility, her surgeon is located at [facility]. Response to treatment: the patient's symptoms have mildly improved after treatment, and as a result, I will admit patient. ED course: Pt without acute findings on CT, + elevated WBC but just had surgery, pain is not controlled and has intractable vomiting. Pt not able to go home, will initiate transfer to [facility] for continuity of care. . 10/11 05:22 Order name: CBC with Diff rn 10/11 05:22 Order name: CMP; Complete Time: 06:03 rn 10/11 05:22 Order name: Lipase; Complete Time: 06:03 rn 10/11 05:46 Order name: CBC Smear Scan EDMS 10/11 07:00 Order name: SARS RAPID eb 10/11 08:10 Order name: Urine Dipstick-Ancillary EDMS 10/11 05:22 Order name: CT Abd/Pelvis - IV Contrast Only rn 10/11 08:18 Order name: Urine --Ancillary (enter results) eb 10/11 05:22 Order name: IV Saline Lock; Complete Time: 05:23 rn 10/11 05:22 Order name: Labs collected and sent; Complete Time: 05:28 rn Administered Medications: 05:23 Drug: Phenergan (promethazine) 12.5 mg Route: IVP; Site: right antecubital; kd3 06:08 Follow up: Response: No adverse reaction; Nausea is decreased kd3 05:24 Drug: morphine 4 mg Route: IVP; Infused Over: 4 mins; Site: right antecubital; kd3 06:08 Follow up: Response: No adverse reaction; Pain is decreased kd3 05:28 Drug: NS 0.9% 1000 ml Route: IV; Rate: 1 bolus; Site: right antecubital; kd3 07:41 Follow up: IV Status: Completed infusion; IV Intake: 1000ml ll1 06:08 Drug: Dilaudid (HYDROmorphone) 1 mg Route: IVP; Site: right antecubital; kd3 07:42 Follow up: Response: No adverse reaction; Pain is decreased; RASS: Alert and Calm (0) ll1 06:08 Drug: Zofran (Ondansetron) 4 mg Route: IVP; Site: right antecubital; kd3 07:42 Follow up: Response: No adverse reaction; Nausea unchanged; RASS: Alert and Calm (0) ll1 08:04 Drug: Phenergan (promethazine) 12.5 mg Route: IVP; Site: right antecubital; ll1 09:41 Follow up: Response: No adverse reaction; Nausea is decreased; RASS: Alert and Calm (0) ll1 08:05 Drug: morphine 4 mg {Note: pain 9/10 RASS 0.} Route: IVP; Infused Over: 4 mins; Site: ll1 right antecubital; 09:41 Follow up: Response: No adverse reaction ll1 09:42 Follow up: Response: No adverse reaction; Pain is decreased; RASS: Alert and Calm (0) ll1 Disposition Summary: 10/11/22 07:00 Transfer Ordered Transfer Location: [facility] rn Reason: Higher level of care rn Condition: Stable rn Problem: new rn Symptoms: have improved rn Accepting Physician: (10/11/22 09:40) [facility] Diagnosis - Abdominal pain, unspecified - Intractable rn - Vomiting - Intractable rn Forms: - Medication Reconciliation Form rn - SBAR form rn Signatures: Dispatcher [employer] EDJosué Christianson MD MD rn Lewis, Lynsay, RN RN ll1 Nely Villegas RN RN kd3 Patricia Saini, RN RN vc1 Corrections: (The following items were deleted from the chart) 09:40 07:00 Dr. bernal ll1
[2022-10-11 07:02] LABS: White Blood Cell Scan OK (OK)
[2022-10-11 07:03] LABS: Blood Morphology Comment NOTED (NOT SEEN); Platelet Estimate ADEQ
[2022-10-11 07:44] LABS: SARS-CoV-2 Antigen Rapid Res Negative (Negative)
[2022-10-11] MEDS ORDERED: NA CHLORIDE 0.9% 50 ML ONE (08:02)
[2022-10-11 08:09] LABS: Urine Blood 3+ (Negative); Urine Glucose Negative (Negative); Urine Protein 1+ (Negative); Urine Specific Gravity 1.015 (1.005-1.030); Urine pH 8.5 (5.0-7.0)
[2022-10-11 08:49] LABS: Urine Specific Gravity/Preg 1.015 (1.005-1.030)
[2022-10-11 09:48] VITALS: TEMP 99.5
[2022-10-11 10:03] VITALS: BP 146/95; O2SAT 100
--- NOTE | 2022-10-11 22:28 | RAD REPORT ---
EXAM DESCRIPTION: CT - Abdomen Pelvis W Contrast - 10/11/2022 6:56 am CLINICAL HISTORY: The patient is 42 years old and is Female; s/p lap ovarian cyst removal, vomiting, pain TECHNIQUE: Axial computed tomography images of the abdomen and pelvis with intravenous contrast. S agittal and coronal reformatted images were created and reviewed. This CT exam was performed using one or more of the following dose reduction techniques: automated exposure control, adjustment of t he mA and/or kV according to patient size, and/or use of iterative reconstruction technique. COMPARISON: July 19, 2022. FINDINGS: Lung bases: Unremarkable. No mass. No consolidation. ABDOMEN: Liver: Left hepatic cyst, 8 mm. No follow-up imaging recommended. Mild fatty liver. Gallbladder and bile ducts: Unremarkable. No calcified stones. No ductal dilation. Pancreas: No findings to suggest acute pancreatitis. No mass visualized. No ductal dilation. Spleen: Unremarkable. No splenomegaly. Adrenals: Unremarkable. No mass. Kidneys and ureters: Bilateral nephrolithiasis. No hydronephrosis or ureter stone. No solid renal lesion. Stomach and bowel: No bowel dilatation or obstruction. No bowel wall thickening. PELVIS: Appendix: The visualized appendix is normal. No pericecal inflammation to suggest acute appendic itis. Bladder: Small amount of gas in the bladder lumen likely from recent catheterization. No CT find ings to suggest cystitis/UTI. Reproductive: 1.7 cm left ovarian simple cyst. No right adnexal mass. Uterus is unremarkable.s ABDOMEN and PELVIS: Intraperitoneal space: Scattered pneumoperitoneum consistent with the history of recent laparoto my. Trace free fluid in the cul-de-sac. Bones/joints: No acute fracture visualized. No dislocation. Soft tissues: Small amount of soft tissue gas in the left anterior abdominal wall, consistent wi th recent surgery. Vasculature: Unremarkable. No abdominal aortic aneurysm. Lymph nodes: No pathologically enlarged lymph nodes. IMPRESSION: 1. Scattered foci of free air, consistent with the history of recent laparotomy. 2. 1.7 cm left ovarian simple cyst. No follow-up imaging recommended. 3. Small amount of gas in the bladder lumen likely from recent catheterization. No CT findings to s uggest cystitis/UTI. 4. Additional non-emergent findings as above. Electronically signed by: Kim Medina MD 10/11/2022 6:40 AM [employer] Due to temporary technical issues with the PACS/Fluency reporting system, reports are being signed by the in house radiologists without review as a courtesy to insure prompt reporting. The interpreting radiologist is fully responsible for the content of the report.
== END 2022-10-11 09:40 | disposition short-term general hospital (02) ==
LOC: ER 05:00
DX: R10.9 Unspecified abdominal pain (principal); R11.10 Vomiting, unspecified; Z20.822 Contact with and (suspected) exposure to COVID-19; Z98.890 Other specified postprocedural states; Z72.0 Tobacco use
CPT/HCPCS: 96361; 85025; 36415; 81025; 81003; 83690; 80053; 74177; 96375; 96374; 99285; 87811; Q9967; J2550 ×2; J1170; J2405